=== PATIENT | male | born 1935 | race Caucasian/White ===

== ENCOUNTER → 2016-09-21 | Outpatient (CLI) | payer BC ==
[~2016-09-21] MED LIST: ALL100 PO; ALT10 PO; ASPEC81 PO; CHOL1000 PO; CYAN100020 PO; DOXY1CAP PO; FLM4 PO; GLC500 PO; HMLIS SQ; INSUINJ SQ; MULT-506 PO; PRAV20TA PO
[2016-09-21 09:32] LABS: HEMATOCRIT 43.6 % (42-52); MEAN CELL VOLUME 91.4 fL (80-100); MEAN CORPUSCULAR HEMOGLOBIN 31.2 pg (25-34); MEAN CORPUSCULAR HGB CONC 34.2 g/dl (32-36); MEAN PLATELET VOLUME 9.3 fL (7.4-10.4); PLATELET COUNT 177 K/uL (130-400); RED BLOOD COUNT 4.77 M/uL (4.7-6.1)
[2016-09-21 09:46] LABS: ALT/SGPT 43 U/L (12-78); BLOOD UREA NITROGEN 20 mg/dl (7-18); BUN/CREATININE RATIO 22.2 (10-20); CARBON DIOXIDE 24 mmol/L (21-32); CHLORIDE 107 mmol/L (98-107); CHOLESTEROL 149 mg/dl (0-200); CREATININE 0.89 mg/dl (0.60-1.40); GLUCOSE 116 mg/dl (70-99); POTASSIUM 4.1 mmol/L (3.5-5.1); SODIUM 142 mmol/L (136-145)
[2016-09-21 09:49] LABS: ESTIMATED AVERAGE GLUCOSE 174 mg/dl; HA1C FLAG Normal (Normal)
[2016-09-21 09:58] LABS: ALB/GLOB RATIO 1.1 (0.9-2); ALKALINE PHOSPHATASE 71 U/L (45-117); AST/SGOT 24 U/L (15-37); CHOLESTEROL/HDL RATIO 3.6; HDL CHOLESTEROL 41 mg/dl; LDL CHOLESTEROL CALCULATED 61 mg/dl; PHOSPHORUS 2.9 mg/dl (2.5-4.9); PROSTATE SPECIFIC ANTIGEN 0.013 ng/ml (0.000-4.000); TRIGLYCERIDES 237 mg/dl (0-150); VERY LOW DENSITY LIPOPROT CALC 47 mg/dl
[2016-09-21 11:07] LABS: MANUAL MICROSCOPIC REQUIRED? NO; URINE APPEARANCE CLEAR (CLEAR); URINE BILIRUBIN NEG (NEG); URINE COLOR YELLOW; URINE NITRITE NEG (NEG); URINE SPECIFIC GRAVITY 1.025 (1.000-1.030); UROBILINOGEN NEG (NEG)
[2016-09-21 11:28] LABS: URINE EPITHELIAL CELL AUTO 0-5 /lpf (0-5); URINE PROTIEN/CREAT RATIO 0.1 (0-0.2); URINE TOTAL PROTEIN 16.6 mg/dl (0-11.9)
[2016-09-21 11:35] LABS: REVIEW REQ? YES
--- NOTE | 2016-09-25 10:41 | CODING QUERY MEDICAL NECESSITY ---
SUPPORTING DIAGNOSIS NEEDED Dr. Betts, A supporting diagnosis is required for the test/procedure performed on this patient in order for us to be reimbursed by the patient's insurance. Please provide a supporting diagnosis for the following test/procedure listed below next to the test name along with your signature. *If there is no additional diagnosis for this patient that would support the following test/procedure please document that below next to the test/procedure. Test(s)/Procedure(s) that require a supporting diagnosis: * 18961 GLYCATED HEMOGLOBIN DIAGNOSIS: * [id number] PSA DIAGNOSIS: DATE OF SERVICE: 09/21/16 Provider Signature: Date: Thank you Eduardo Pena Health Information Management Once completed, please kindly fax back to [phone] For questions please call [phone]
== END | disposition home or self-care (01) ==
LOC: C.LAB1850 08:18
PROVIDERS: ATTEND Internal Medicine
DX: M81.0 Age-related osteoporosis without current pathological fracture (principal); I12.9 Hypertensive chronic kidney disease with stage 1 through stage 4 chronic kidney disease, or unspecified chronic kidney disease; E55.9 Vitamin D deficiency, unspecified; N18.2 Chronic kidney disease, stage 2 (mild); R80.9 Proteinuria, unspecified; E11.22 Type 2 diabetes mellitus with diabetic chronic kidney disease; N40.1 Benign prostatic hyperplasia with lower urinary tract symptoms

== ENCOUNTER → 2017-02-17 | Outpatient (CLI) | payer BC ==
[~2017-02-17] MED LIST changes: +CRAN1CAP14; +ERGO500037 PO; +FLUO0.0566 TOP; +[UNRECOGNIZED DRUG - CODE]
[2017-02-17 17:04] LABS: PROSTATE SPECIFIC ANTIGEN 0.012 ng/ml (0.000-4.000)
[2017-02-18 07:30] LABS: ESTIMATED AVERAGE GLUCOSE 174 mg/dl; HA1C FLAG Normal (Normal)
== END | disposition home or self-care (01) ==
LOC: C.LABBC 13:25
PROVIDERS: ATTEND Internal Medicine Endocrinology, Diabetes & Metabolism
DX: C61 Malignant neoplasm of prostate (principal); I10 Essential (primary) hypertension; E78.5 Hyperlipidemia, unspecified; E66.9 Obesity, unspecified; E55.9 Vitamin D deficiency, unspecified; E11.21 Type 2 diabetes mellitus with diabetic nephropathy; R80.9 Proteinuria, unspecified; M81.0 Age-related osteoporosis without current pathological fracture

== ENCOUNTER → 2017-03-02 | Outpatient (CLI) | payer BC ==
[2017-03-02 16:46] LABS: HEMATOCRIT 42.6 % (42-52); MEAN CELL VOLUME 93.2 fL (80-100); MEAN CORPUSCULAR HEMOGLOBIN 32.4 pg (25-34); MEAN CORPUSCULAR HGB CONC 34.7 g/dl (32-36); MEAN PLATELET VOLUME 9.5 fL (7.4-10.4); PLATELET COUNT 184 K/uL (130-400); RED BLOOD COUNT 4.57 M/uL (4.7-6.1); WHITE BLOOD COUNT 5.56 K/uL (4.8-10.8)
[2017-03-02 16:49] LABS: URINE APPEARANCE CLEAR (CLEAR); URINE BILIRUBIN NEG (NEG); URINE COLOR YELLOW; URINE EPITHELIAL CELL AUTO 0-5 /lpf (0-5); URINE NITRITE NEG (NEG); URINE PH 6.5 (4.5-7.5); URINE SPECIFIC GRAVITY 1.009 (1.000-1.030); UROBILINOGEN NEG (NEG)
[2017-03-02 16:55] LABS: ALT/SGPT 41 U/L (12-78); BLOOD UREA NITROGEN 19 mg/dl (7-18); BUN/CREATININE RATIO 20.7 (10-20); CALCIUM 9.6 mg/dl (8.5-10.1); CARBON DIOXIDE 30 mmol/L (21-32); CHLORIDE 103 mmol/L (98-107); CREATININE 0.91 mg/dl (0.60-1.40); GLUCOSE 82 mg/dl (70-99); SODIUM 140 mmol/L (136-145)
[2017-03-02 16:58] LABS: ALKALINE PHOSPHATASE 77 U/L (45-117); AST/SGOT 22 U/L (15-37)
[2017-03-02 16:59] LABS: MANUAL MICROSCOPIC REQUIRED? NO; REVIEW REQ? NO
[2017-03-02 17:18] LABS: URINE PROTIEN/CREAT RATIO 0.5 (0-0.2); URINE TOTAL PROTEIN 9.1 mg/dl (0-11.9)
== END | disposition home or self-care (01) ==
LOC: C.LABBC 13:55
PROVIDERS: ATTEND Internal Medicine Nephrology
DX: E55.9 Vitamin D deficiency, unspecified (principal); I12.9 Hypertensive chronic kidney disease with stage 1 through stage 4 chronic kidney disease, or unspecified chronic kidney disease; N18.2 Chronic kidney disease, stage 2 (mild); R80.9 Proteinuria, unspecified

== ENCOUNTER → 2017-04-14 | Outpatient (CLI) | payer BC ==
[~2017-04-14] MED LIST changes: +FENTANYL CITRATE INJ 50 MCG/1 ML 2 ML VIAL ONE; +HEPARIN SOD (PORCINE) 1000 UNIT/ML 10 ML VIAL ONE; +MIDAZOLAM HCL 1 MG/ML 2ML VIAL ONE; +NITROGLYCERIN/D5W 100MCG/ML 20ML SYR ONE; +NiCARDipine HCL INJ 2.5 MG/ML 10 ML AMP ONE; +REGADENOSON 0.4 MG/5 ML SYR ONE
--- NOTE | 2017-04-14 14:12 | MYOCARDIAL PERFUSION SCAN ---
MYOCARDIAL PERFUSION STUDY HISTORY: This is a 81-year-old diabetic male with a history of a permanent pacemaker who has been experiencing shortness of breath with activity. TECHNIQUE: For the stress portion of the study the patient received 32.9 millicuries of intravenous technetium-99m sestamibi intravenously at 11:25 a.m. on 04/14/2017. Thirty minutes later the patient had imaging of his heart performed in multiple projections. For the rest portion of the study the patient received 10.8 mCi of intravenous technetium-99m sestamibi at 9:30 a.m. One hour following the injection, imaging of the heart was performed in the same projections. BASELINE EKG: Baseline EKG reveals a sinus rhythm with ventricular pacing. STRESS EKG: Unchanged and no significant arrhythmias. RAW DATA: Review of the raw data in a spin motion reveals normal uptake of the radioisotope in the myocardium without significant artifact or lung uptake. FINDINGS: When comparing to rest the stress sestamibi scans there is a moderate to severe perfusion defect in a moderate to large portion of the inferior and inferobasilar myocardium on the stress images which is less evident on the resting images and is consistent with ischemia. Gated analysis reveals normal wall motion and left ventricular function with an estimated left ventricular ejection fraction of 54%. SUMMARY: Overall this pharmacologic nuclear stress test reveals moderate to severe ischemia of the inferior and inferobasilar myocardium. Overall left ventricular systolic function is preserved with an estimated left ventricular ejection fraction of 54%.
== END | disposition home or self-care (01) ==
LOC: C.NUCL 09:09
PROVIDERS: ATTEND Internal Medicine Interventional Cardiology
DX: I35.0 Nonrheumatic aortic (valve) stenosis (principal)

== ENCOUNTER 2017-08-07 17:28 | Emergency (ER) | payer BC ==
[~2017-08-07] VITALS: Ht 154.9 cm; Wt 74.8 kg
[~2017-08-07 17:28] MED LIST changes: -ALT10 PO; +ATOR-22 PO; -CHOL1000 PO; -DOXY1CAP PO; -FENTANYL CITRATE INJ 50 MCG/1 ML 2 ML VIAL ONE; -FLUO0.0566 TOP; +GLC/500 PO; -GLC500 PO; -HEPARIN SOD (PORCINE) 1000 UNIT/ML 10 ML VIAL ONE; +INSDGI SC; -INSUINJ SQ; +METO25TA56 PO; -MIDAZOLAM HCL 1 MG/ML 2ML VIAL ONE; -NITROGLYCERIN/D5W 100MCG/ML 20ML SYR ONE; -NiCARDipine HCL INJ 2.5 MG/ML 10 ML AMP ONE; -PRAV20TA PO; -REGADENOSON 0.4 MG/5 ML SYR ONE
[2017-08-07 17:33] VITALS: TEMP 36.4; Ht 154.9 cm; Wt 74.8 kg
[2017-08-07] MEDS ORDERED: ASPI81TA21 PO (18:18)
[2017-08-07] MEDS ORDERED: ALL100 PO (18:18)
[2017-08-07] MEDS ORDERED: ASCA500 PO (18:18)
[2017-08-07] MEDS ORDERED: INSU1INJ31 SC (18:18)
--- NOTE | 2017-08-07 18:24 | DIAGNOSTIC IMAGING REPORT ---
CHEST ONE VIEW PORTABLE CLINICAL HISTORY: EVALUATE ALTERED MENTAL STATUS/WEAKNESS COMPARISON STUDY: Chest radiograph September 26, 2015. FINDINGS: Dual lead left pacemaker, median sternotomy wires and prosthetic cardiac valve are noted. There is mild cardiomegaly without evidence of pulmonary edema. There is no consolidation to suggest pneumonia. Linear bibasilar opacities suggest atelectasis. IMPRESSION: 1. No acute cardiopulmonary findings. 2. Linear bibasilar opacities suggestive of atelectasis. Electronically signed by: Jim Zambrano M.D. 08/07/2017 6:23 PM Dictated Date/Time: 08/07/2017 6:19 PM
[2017-08-07 18:48] LABS: BASO % 0.2 %; BASO ABS # 0.01 K/uL (0-0.2); EOS % 1.2 %; EOS ABS # 0.06 K/uL (0-0.5); HEMATOCRIT 46.4 % (42-52); IG# 0.02 K/uL (0.00-0.02); LYMPH % 32.2 %; LYMPH ABS # 1.56 K/uL (1.2-3.4); MEAN CELL VOLUME 91.3 fL (80-100); MEAN CORPUSCULAR HEMOGLOBIN 31.5 pg (25-34); MEAN CORPUSCULAR HGB CONC 34.5 g/dl (32-36); MEAN PLATELET VOLUME 9.4 fL (7.4-10.4); MONO % 8.7 %; MONO ABS # 0.42 K/uL (0.11-0.59); NEUT % 57.3 %; NEUT ABS # 2.78 K/uL (1.4-6.5); PLATELET COUNT 136 K/uL (130-400); RED CELL DISTRIBUTION WIDTH CV 13.3 % (11.5-14.5); WHITE BLOOD COUNT 4.85 K/uL (4.8-10.8)
[2017-08-07 18:57] LABS: INR 1.2 (0.9-1.1); PTT PATIENT 27.2 SECONDS (21.0-31.0)
[2017-08-07 19:06] LABS: ALT/SGPT 33 U/L (12-78); BLOOD UREA NITROGEN 16 mg/dl (7-18); CALCIUM 8.9 mg/dl (8.5-10.1); CARBON DIOXIDE 28 mmol/L (21-32); CREATININE 1.02 mg/dl (0.60-1.40); GLUCOSE 97 mg/dl (70-99); LIPASE 119 U/L (73-393); POTASSIUM 3.9 mmol/L (3.5-5.1); SODIUM 138 mmol/L (136-145)
[2017-08-07 19:14] LABS: ALKALINE PHOSPHATASE 92 U/L (45-117); AST/SGOT 22 U/L (15-37); TOTAL PROTEIN 7.8 gm/dl (6.4-8.2)
[2017-08-07] MEDS ORDERED: OPTIRAY 320 IV PRN (19:45)
--- NOTE | 2017-08-07 19:47 | DIAGNOSTIC IMAGING REPORT ---
HEAD COMBO CLINICAL HISTORY: Transient leg weakness. COMPARISON STUDY: Head CT July 12, 2015 and MRI of the brain June 12, 2008. TECHNIQUE: Axial images of the head were obtained before and after intravenous administration of 116 cc of Optiray 320 IV. FINDINGS: No acute intracranial hemorrhage, midline shift or mass effect is present. Moderate atrophy is noted. Ventricular system is stable. Basilar cisterns are patent. There are no extra-axial collections. There are no findings to suggest acute dural sinus thrombosis or acute territorial infarct. There is no intracranial mass or pathologic enhancement. White matter hypodensities suggest mild to moderate small vessel disease. There are no significant calvarial abnormalities. IMPRESSION: 1. No acute intracranial findings. No change in appearance of the brain. 2. No intracranial mass or pathologic enhancement. Electronically signed by: Jim Zambrano M.D. 08/07/2017 7:46 PM Dictated Date/Time: 08/07/2017 7:42 PM
--- NOTE | 2017-08-07 19:57 | EMERGENCY ROOM VISIT NOTE ---
History Report prepared by Karie: Adrian Medrano Under the Supervision of: Dr. Michael Grant D.O. First contact with patient: 17:51 Chief Complaint: DIZZY Stated Complaint: IMBALANCE,REFERRED BY NURSE SUBSTANCE ABUSE History of Present Illness The patient is a 81 year old male who presents to the Emergency Room with complaints of intermittent dizziness that lasts for 15 minutes that began 3 months of. He had 2 bypasses and an aortic valve replacement 3 months ago at the [facility] (Dr. Reaves). He states that today, he had a bowel movement , and tried to stand up but states that he lost his balance when he tried to stand. He denies weakness or numbness in his legs but states that they feel "funny". He states that he napped after her episode of dizziness and felt better. The patient spoke with his son who is a marshmallow machine operator who suggested the patient get a CT and be evaluated by a neurologist for the possibility of a stroke. Source of History: patient Onset: 3 mongths ago Position: other (global) Timing: intermittent Associated Symptoms: No weakness, No numbness Note: Patient complains of dizziness and losing his balance. Patient states that his legs feel "funny". Review of Systems See HPI for pertinent positives & negatives. A total of 10 systems reviewed and were otherwise negative. Past Medical & Surgical Medical Problems: (1) Diabetes mellitus (2) Pacemaker Surgical Problems: (1) Aortic valve replaced Family History Diabetes mellitus Social History Smoking Status: Former Smoker Alcohol Use: occasionally Marital Status: Housing Status: lives with significant other Occupation Status: retired Current/Historical Medications Scheduled Allopurinol (Allopurinol), 100 MG PO BID Ascorbic Acid (Vitamin C), 500 MG PO DAILY Aspirin Enteric Coated (Ecotrin Or Generic), 81 MG PO BID Atorvastatin (Lipitor), 20 MG PO DAILY Cyanocobalamin (Vitamin B12), 1,000 MCG PO DAILY Ergocalciferol (Vitamin D 27418 Unit), 1 CAP PO Q2WK Insulin Glargine (Lantus), 40 UNITS SC QPM Insulin Lispro (Human) (Humalog Kwikpen), 10-12 UNITS SC ACHS Metformin Hcl (Glucophage), 500 MG PO BID Metoprolol Tartrate (Lopressor) (Lopressor), 12.5 MG PO BID Multivitamin (Multivitamin), 1 TAB PO DAILY Allergies Coded Allergies: No Known Allergies (Unverified , 08/07/17) Physical Exam Vital Signs Date Time Temp Pulse Resp B/P (MAP) Pulse Ox O2 Delivery O2 Flow Rate FiO2 08/07/17 19:11 59 15 134/80 93 08/07/17 18:58 58 18 163/95 08/07/17 18:00 64 08/07/17 17:55 60 18 173/96 95 Room Air 65 162/97 67 163/95 08/07/17 17:33 36.4 76 18 188/89 97 Room Air Physical Exam VITAL SIGNS: were reviewed as above. GENERAL:Non-toxic in appearance. SKIN: Warm dry and pink. HEAD: Normocephalic and atraumatic. OROPHARYNX: Is clear and moist NECK: Supple without lymphadenopathy or meningismus. LUNGS: clear. HEART: Regular rate and rhythm. ABDOMEN: Soft and nontender. EXTREMITIES: Warm and well perfused. NEUROLOGICALLY: Awake alert and oriented without focal deficit. Cranial nerves 2 -12 are intact. There is no pronator drift. Cerebellar testing is within normal limits. There is no nystagmus. There is no facial droop. Speech is clear. Vision is grossly normal. MUSCULOSKELETAL: Good muscle tone. No evidence of trauma. Medical Decision & Procedures ER Provider Diagnostic Interpretation: Radiology results as stated below per my review and radiologist interpretation: CHEST ONE VIEW PORTABLE CLINICAL HISTORY: EVALUATE ALTERED MENTAL STATUS/WEAKNESS COMPARISON STUDY: Chest radiograph September 26, 2015. FINDINGS: Dual lead left pacemaker, median sternotomy wires and prosthetic cardiac valve are noted. There is mild cardiomegaly without evidence of pulmonary edema. There is no consolidation to suggest pneumonia. Linear bibasilar opacities suggest atelectasis. IMPRESSION: 1. No acute cardiopulmonary findings. 2. Linear bibasilar opacities suggestive of atelectasis. Electronically signed by: Jim Zambrano M.D. 08/07/2017 6:23 PM Dictated Date/Time: 08/07/2017 6:19 PM HEAD COMBO CLINICAL HISTORY: Transient leg weakness. COMPARISON STUDY: Head CT July 12, 2015 and MRI of the brain June 12, 2008. TECHNIQUE: Axial images of the head were obtained before and after intravenous administration of 116 cc of Optiray 320 IV. FINDINGS: No acute intracranial hemorrhage, midline shift or mass effect is present. Moderate atrophy is noted. Ventricular system is stable. Basilar cisterns are patent. There are no extra-axial collections. There are no findings to suggest acute dural sinus thrombosis or acute territorial infarct. There is no intracranial mass or pathologic enhancement. White matter hypodensities suggest mild to moderate small vessel disease. There are no significant calvarial abnormalities. IMPRESSION: 1. No acute intracranial findings. No change in appearance of the brain. 2. No intracranial mass or pathologic enhancement. Electronically signed by: Jim Zambrano M.D. 08/07/2017 7:46 PM Dictated Date/Time: 08/07/2017 7:42 PM Laboratory Results 08/07/17 18:35 Red Blood Count 5.08, Mean Corpuscular Volume 91.3, Mean Corpuscular Hemoglobin 31.5, Mean Corpuscular Hemoglobin Concent 34.5, Mean Platelet Volume 9.4, Neutrophils (%) (Auto) 57.3, Lymphocytes (%) (Auto) 32.2, Monocytes (%) (Auto) 8.7, Eosinophils (%) (Auto) 1.2, Basophils (%) (Auto) 0.2, Neutrophils # (Auto) 2.78, Lymphocytes # (Auto) 1.56, Monocytes # (Auto) 0.42, Eosinophils # (Auto) 0.06, Basophils # (Auto) 0.01 08/07/17 18:35 Test 08/07/17 18:35 White Blood Count 4.85 K/uL (4.8-10.8) Red Blood Count 5.08 M/uL (4.7-6.1) Hemoglobin 16.0 g/dL (14.0-18.0) Hematocrit 46.4 % (42-52) Mean Corpuscular Volume 91.3 fL (80-100) Mean Corpuscular Hemoglobin 31.5 pg (25-34) Mean Corpuscular Hemoglobin Concent 34.5 g/dl (32-36) Platelet Count 136 K/uL (130-400) Mean Platelet Volume 9.4 fL (7.4-10.4) Neutrophils (%) (Auto) 57.3 % Lymphocytes (%) (Auto) 32.2 % Monocytes (%) (Auto) 8.7 % Eosinophils (%) (Auto) 1.2 % Basophils (%) (Auto) 0.2 % Neutrophils # (Auto) 2.78 K/uL (1.4-6.5) Lymphocytes # (Auto) 1.56 K/uL (1.2-3.4) Monocytes # (Auto) 0.42 K/uL (0.11-0.59) Eosinophils # (Auto) 0.06 K/uL (0-0.5) Basophils # (Auto) 0.01 K/uL (0-0.2) RDW Standard Deviation 44.0 fL (36.4-46.3) RDW Coefficient of Variation 13.3 % (11.5-14.5) Immature Granulocyte % (Auto) 0.4 % Immature Granulocyte # (Auto) 0.02 K/uL (0.00-0.02) Prothrombin Time 12.7 SECONDS (9.0-12.0) Prothromb Time International Ratio 1.2 (0.9-1.1) Activated Partial Thromboplast Time 27.2 SECONDS (21.0-31.0) Partial Thromboplastin Ratio 1.0 Anion Gap 4.0 mmol/L (3-11) Est Creatinine Clear Calc Drug Dose 50.9 ml/min Estimated GFR () 80.6 Estimated GFR (Non- 69.6 BUN/Creatinine Ratio 15.7 (10-20) Calcium Level 8.9 mg/dl (8.5-10.1) Magnesium Level 1.9 mg/dl (1.8-2.4) Total Bilirubin 0.5 mg/dl (0.2-1) Direct Bilirubin 0.1 mg/dl (0-0.2) Aspartate Amino Transf (AST/SGOT) 22 U/L (15-37) Alanine Aminotransferase (ALT/SGPT) 33 U/L (12-78) Alkaline Phosphatase 92 U/L (45-117) Total Creatine Kinase 189 U/L (39-308) Creatine Kinase MB 3.0 ng/ml (0.5-3.6) Creatine Kinase MB Ratio 1.6 (0-3.0) Troponin I < 0.015 ng/ml (0-0.045) Total Protein 7.8 gm/dl (6.4-8.2) Albumin 4.0 gm/dl (3.4-5.0) Lipase 119 U/L (73-393) Thyroid Stimulating Hormone (TSH) 2.650 uIu/ml (0.300-4.500) Laboratory results as stated above per my review. ECG Indication: weakness Rate (beats per minute): 60 Rhythm: other (paced ventricular rhythm) Findings: no ectopy, other (No acute injury) Change: Patient's EKG interpreted by me. ED Course 1750: Previous medical records were reviewed. The patient was evaluated in room A12. A complete history and physical examination was performed. 1954: On reevaluation, the patient is doing well. I discussed the results and findings with the patient. He verbalized agreement of the treatment plan. He was discharged home. Medical Decision Differential includes acute coronary syndrome, myocardial infarction, CVA, TIA, anemia, infection, pneumonia, UTI, pyelonephritis, poor nutrition, dehydration, electrolyte disturbance,hypoglycemia. This is a 81-year-old male who presents to the ED with a chief complaint of intermittent episodes where he feels as though he cannot quite control his legs. The patient states that his symptoms started about 3 months ago after having a double bypass surgery and aortic valvular surgery. The patient states that it has occurred about 6 times in that timeframe. Today, the patient states that it occurred after having a bowel movement. He states that he was on the toilet for about 10 minutes and when he got up he felt like his legs were wobbly and hard to control. He states that he went to his bed and laid down and rested and woke up and felt fine. The patient came in for evaluation of this. His legs currently are better and he was able to walk in here but they still don't feel quite normal. His physical exam and neurologic exam was unremarkable. He is in no distress. In his strength is 5 out of 5 in the lower extremities. He has normal reflexes. CT scan of the brain did not show acute process. A chest x-ray was negative for acute disease. CBC and complete metabolic panel were normal and a troponin and TSH were normal. The patient was told results the test. He is felt to be stable for discharge and outpatient follow-up. His initial blood pressure was somewhat elevated. The last blood pressure was normal. Medication Reconcilliation Current Medication List: was personally reviewed by me Blood Pressure Screening Patient's blood pressure: Elevated blood pressure Blood pressure disposition: Elevated BP felt to be situational Impression Primary Impression: Transient left leg weakness Additional Impression: Transient right leg weakness Scribe Attestation The scribe's documentation has been prepared under my direction and personally reviewed by me in its entirety. I confirm that the note above accurately reflects all work, treatment, procedures, and medical decision making performed by me. Departure Information Dispostion Home / Self-Care Referrals Jose Betts M.D. (PCP) Patient Instructions My [facility] Additional Instructions CT scan of the brain today did not show any acute abnormalities. Your blood work was normal. Follow-up with your doctor for recheck. See a neurologist for further evaluation as well. Talk to Dr. Estrada about neurology referral. Problem Qualifiers
[2017-08-07 20:00] VITALS: BP 146/91; PULSE 54; O2SAT 94
== END 2017-08-07 20:05 | disposition home or self-care (01) ==
LOC: C.EDB 17:30 → C.EDA 20:05
DX: M62.81 Muscle weakness (generalized) (principal); R42 Dizziness and giddiness; E11.9 Type 2 diabetes mellitus without complications; Z79.4 Long term (current) use of insulin; Z79.899 Other long term (current) drug therapy; Z95.0 Presence of cardiac pacemaker; Z95.2 Presence of prosthetic heart valve; Z87.891 Personal history of nicotine dependence; Z83.3 Family history of diabetes mellitus

== ENCOUNTER → 2017-08-16 | Outpatient (CLI) | payer BC ==
[~2017-08-16] MED LIST changes: +ASCA500 PO; -ASPEC81 PO; +ASPI81TA21 PO; -CRAN1CAP14; -FLM4 PO; -HMLIS SQ; +INSU1INJ31 SC; -[UNRECOGNIZED DRUG - CODE]
[2017-08-16 13:40] LABS: HEMOGLOBIN A1C 7.4 % (4.5-5.6)
== END | disposition home or self-care (01) ==
LOC: C.LAB1850 11:50
PROVIDERS: ATTEND Internal Medicine Endocrinology, Diabetes & Metabolism
DX: E55.9 Vitamin D deficiency, unspecified (principal); M81.0 Age-related osteoporosis without current pathological fracture; E11.9 Type 2 diabetes mellitus without complications

== ENCOUNTER → 2017-08-30 | Outpatient (CLI) | payer BC | END | disposition home or self-care (01) | LOC: C.LABBC 09:49 | PROVIDERS: ATTEND Psychiatry & Neurology Neurology | DX: R53.1 Weakness (principal) ==

== ENCOUNTER → 2017-10-19 | Outpatient (CLI) | payer BC ==
[~2017-10-19] MED LIST changes: +ASPI-319 PO; -ASPI81TA21 PO
[2017-10-19 09:51] LABS: ALBUMIN 3.6 gm/dl (3.4-5.0); ALT/SGPT 30 U/L (12-78); AST/SGOT 21 U/L (15-37); BLOOD UREA NITROGEN 14 mg/dl (7-18); CALCIUM 9.1 mg/dl (8.5-10.1); CARBON DIOXIDE 28 mmol/L (21-32); CHOLESTEROL 140 mg/dl (0-200); CREATININE 0.96 mg/dl (0.60-1.40); GLUCOSE 107 mg/dl (70-99); POTASSIUM 4.1 mmol/L (3.5-5.1); SODIUM 140 mmol/L (136-145)
[2017-10-19 09:55] LABS: ALKALINE PHOSPHATASE 97 U/L (45-117); LDL CHOLESTEROL CALCULATED 63 mg/dl; TOTAL PROTEIN 7.3 gm/dl (6.4-8.2)
== END | disposition home or self-care (01) ==
LOC: C.LAB1850 06:52
PROVIDERS: ATTEND Internal Medicine
DX: I10 Essential (primary) hypertension (principal); E78.5 Hyperlipidemia, unspecified; I25.10 Atherosclerotic heart disease of native coronary artery without angina pectoris

== ENCOUNTER → 2017-10-22 | Outpatient (CLI) | payer BC | LOC: C.LABBC 10:29 | PROVIDERS: ATTEND Internal Medicine | DX: Z85.46 Personal history of malignant neoplasm of prostate (principal) ==

== ENCOUNTER 2020-05-03 13:53 | Observation (INO) ==
--- NOTE | 2020-05-03 14:57 | XRay Report ---
XR chest 1V portable HISTORY: 84 years-old Male tia acute strokelike symptoms. COMPARISON: Chest radiographs 10/25/2018 TECHNIQUE: Portable AP view of the chest FINDINGS: Cardiac mediastinal and hilar silhouettes are within normal limits. Left subclavian pacer. Prior medi an sternotomy. No pneumothorax, pleural effusion, airspace consolidation or overt pulmonary edema. Mi nimal linear subsegmental left lung base atelectasis/scarring. Degenerative changes of the shoulders and spine. IMPRESSION: No acute process. ACT 112: Negative or not required by law. The above report was generated using voice recognition software. It may contain grammatical, syntax o r spelling errors. Electronically signed by: Kamran Diallo M.D. 05/03/2020 2:56 PM
[2020-05-03 15:03] LABS: Eosinophils # (auto) 0.01 K/uL (0-0.5); Eosinophils % (auto) 0.1 %; Hematocrit (blood only) 47.2 % (42-52); Hemoglobin 15.9 g/dL (14.0-18.0); Immature Granulocytes # (auto) 0.04 K/uL (0.00-0.02); Immature Granulocytes % (auto) 0.6 %; Lymphocytes # (auto) 1.68 K/uL (1.2-3.4); Mean Corpuscular Hemoglobin 32.1 pg (25-34); Mean Corpuscular Hgb Conc 33.7 g/dL (32-36); Mean Corpuscular Volume 95.4 fL (80-100); Monocytes % (auto) 8.9 %; Neutrophils # (auto) 4.38 K/uL (1.4-6.5); Neutrophils % (auto) 65.4 %; Platelet Count 126 K/uL (130-400); RDW Coefficient of Variation 13.1 % (11.5-14.5); RDW Standard Deviation 45.9 fL (36.4-46.3); Red Blood Count 4.95 M/uL (4.7-6.1); White Blood Count 6.71 K/uL (4.8-10.8)
[2020-05-03 15:34] LABS: Alanine Aminotransferase 45 U/L (12-78); Albumin Globulin Ratio 0.8 (0.9-2); Albumin Level 3.8 gm/dl (3.4-5.0); Alkaline Phosphatase 81 U/L (45-117); BUN Creatinine Ratio 20.1 (10-20); Bilirubin,Total 0.6 mg/dl (0.2-1); Blood Urea Nitrogen 22 mg/dl (7-18); Calcium 9.2 mg/dl (8.5-10.1); Carbon Dioxide 28 mmol/L (21-32); Chloride 105 mmol/L (98-107); Creatinine Clr Calc Pharmacy 45.8 ml/min; Est GFR (African American) 74.5; Est GFR (Non-African American) 64.3; Globulin 4.5 gm/dl (2.5-4.0); Glucose 184 mg/dl (70-99); Sodium 136 mmol/L (136-145); Total Protein 8.3 gm/dl (6.4-8.2); Troponin I < 0.015 ng/ml (0-0.045)
--- NOTE | 2020-05-03 15:37 | Emergency Department Note ---
Impression & Plan TIA (transient ischemic attack), AFX (amaurosis fugax) ED Provider Note NAME: RAJ MCDANIEL AGE: 84 SEX: M : 1935 ARRIVES VIA: Walk-In INFORMANT: Patient, ED PROVIDER(S): Timi Brower DO CHIEF COMPLAINT: Vision loss HPI: The patient is an 84-year-old male who has a history of aortic valve replacement who presented to the emergency department for an evaluation of decreased vision in his left eye. The patient had an acute onset of loss of vision in his left eye. He describes it as a darkening of the entire vision fi eld which began yesterday. The patient states that this episode lasted approximately 5 seconds. He denies having any chest pain or difficulty breathing. He has no difficulty ambulating. He states that he called his rv mechanic and was evaluated today in the office. According to the patient his left pupil is dilated and needed direct retinal evaluation which did not reveal cause for the patient's vision loss. He was then referred to the emergency department for further evaluation. He denies having any history of TIA or stroke. He states his aortic valve replacement was 3 to 4 years ago. He does not currently take oral anticoagulation. He states he did not see his family doctor but was referred to the emergency department as well by his primary director of events, Dr. Reaves. He denies having any headache. ROS: See above HPI for pertinent positives & negatives. A total of 10 systems reviewed and were otherwise negative. PAST MEDICAL HISTORY: See Below PAST SURGICAL HISTORY: See Below FAMILY HISTORY: See Below SOCIAL HISTORY: See Below HOME MEDICATIONS: See Below ALLERGIES: See Below VITALS: See Below PHYSICAL EXAMINATION: GENERAL: Patient is awake alert in no acute distress patient is resting comfortably and showing no signs of anxiety EYES: The conjunctivae are clear. The left pupil is dilated and minimally reactive to light. The right eye is normal size and reactive to light. EARS, NOSE, MOUTH AND THROAT: The nose is without any evidence of any deformity. Mucous membranes are moist. Tongue is midline. NECK: The neck is nontender and supple. RESPIRATORY: Normal respiratory effort is noted there is no evidence of wheezing rhonchi or rales CARDIOVASCULAR: Regular rate and rhythm was noted to auscultation. Systolic murmur was appreciated. GASTROINTESTINAL: The abdomen is soft. Abdomen is nontender. MUSCULOSKELETAL/EXTREMITIES: There is no evidence of gross deformity full range of motion is noted in the hips and shoulders. SKIN: There is no obvious evidence of any rash. There are no petechiae, pallor or cyanosis noted. NEUROLOGIC: Patient is awake alert and oriented x3. Gait was steady. Patellar tendon reflexes are 2+ bilaterally. No facial droop was noted. MEDICAL DECISION MAKING: The patient is an 84-year-old male who presented to the emergency department for an evaluation of transient loss of vision in his left eye. The patient describes an episode yesterday where he lost vision in his left eye. This does appear to be consistent with an amaurosis fugax. 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 The patient was sent to the emergency department by his rv mechanic however his primary director of events did call me to discuss the patient's condition. The patient has no focal neurologic deficit at this time. CT the head and CT angiography of the head and neck do not appear to show any acute disease. This would appear to be a very high risk TIA in this patient. For this reason I will discuss his case with the admitting team for further inpatient management which may include echocardiogram and further observation. The patient was agreeable to this plan. Triage Nursing notes reviewed. Prior medical records reviewed Vital Signs: reviewed and remarkable for no significant abnormalities Differential diagnosis: Infection, dehydration, metabolic abnormality, hypo/hyperglycemia, electrolyte disturbance, anemia, hypoxia, cardiac sources, intracerebral event, toxicologic, neurologic, as well as other pathologies. ER treatment provided: See below Diagnostics interpreted by me: ECG: EKG was obtained in the emergency department. My interpretation is atrial sensed pacemaker at 69 bpm. There was no ectopy or grand traverse beats noted. Left bundle branch block pattern was favored. Anterior T wave inversions were noted. This was compared to a tracing from August 072017. The anterior T wave inversions are new compared to the earlier tracing. Cardiac Monitoring: An order was placed for continuous cardiac monitoring. The monitor shows a rate of 65 bpm with paced rhythm. Laboratory studies: As stated above and show below. Imaging studies: See below Consultation(s): 1082: I discussed this case with Dr. Pena. He will evaluate the patient in the emergency department. Past Med/Surg History Medical History (Updated 05/03/20 @ 16:56 by Timi Brower DO) Actinic keratosis Chronic kidney disease, stage II (mild) Former smoker Gout, joint History of prostate cancer Hypertension Intermittent headache Leg weakness, bilateral Obesity Psoriasis Third degree AV block Unsteady gait Vitamin D deficiency Surgical History Aortic valve replaced History of cataract surgery History of hand surgery S/P coronary artery bypass graft x 2 Family History Brother Myocardial infarction Diabetes Sister Diabetes Mother Diabetes Father Stroke Other Nephrolithiasis Denies family history of Ovarian cancer Prostate cancer Breast cancer Colorectal cancer Social History Smoking Status: Former smoker Tobacco Type: Pipe and Cigars Hx Alcohol Use: Yes Alcohol type: beer and wine Hx Substance Use: No Preferred Language: Hungarian Communication Ability: Effective Visual Impairment: No Limitations Hearing Ability: Use of Hearing Aid Change Over Required: No marital status: Current Living Situation: Spouse current occupational status: retired Feels Safe at Home: Yes Childhood Exposure to Second-Hand Smoke: No caffeine: Yes Dental Care, Regularly: Yes Physical Activity Frequency: 5-6 Times per Week Seatbelt Use: always Sunscreen Use: Yes Allergies Allergies Allergy/AdvReac Type Severity Reaction Status Date / Time No Known Drug Allergies Allergy Unknown Verified 05/03/20 16:14 Home Meds Home Medications Medication Instructions Recorded Confirmed ascorbic acid (vitamin C) [Vitamin 500 mg PO DAILY 03/31/18 05/03/20 C] metoprolol tartrate 12.5 mg PO BID 03/31/18 05/03/20 multivitamin 1 cap PO QAM 03/31/18 05/03/20 vitamins A,C,[id number] 2 tab PO BID 03/31/18 05/03/20 [PreserVision AREDS] ramipril [Altace] 5 mg PO BID 12/07/18 05/03/20 insulin glargine 100 unit/mL (3 40 units SQ HS box 08/14/19 05/03/20 mL) subcutaneous pen aspirin 81 mg tablet,delayed 81 mg PO BID tab 12/08/19 05/03/20 release insulin lispro [Humalog KwikPen 0 unit SUBCUT TIDM 05/03/20 05/03/20 Insulin] Previous Rx's Medication Instructions Recorded metformin 850 mg tablet 850 mg PO DAILY #90 tab 07/13/19 OneTouch Verio test strips #500 ea NS 11/07/19 allopurinol 100 mg tablet 100 mg PO BID #180 tab 11/07/19 pravastatin 20 mg tablet 20 mg PO DAILY #90 tab 11/07/19 calcium carbonate 600 mg calcium 600 mg PO DAILY #30 tab 12/13/19 (1,500 mg) tablet icosapent ethyl 1 gram capsule 2 gm PO BID #360 cap 12/14/19 lancets 30 gauge #500 ea 01/31/20 pen needle, diabetic 32 gauge x #450 ea 01/31/20" diclofenac sodium 1 % topical gel 4 g TOPICAL QID PRN #100 g 03/21/20 calcitriol 0.25 mcg capsule 0.25 mcg PO DAILY #90 cap 04/15/20 Results & Data (ED) Vital Signs Vital Signs - 24 hr 05/03/20 14:09 05/03/20 15:28 Temperature 36.6 C Temperature Source Oral Pulse Rate 73 Pulse Rate [Apical] 64 Pulse Rhythm Regular Pulse Strength Normal Respiratory Rate 18 18 Respiratory Effort / Characteristics Non-Labored Spontaneous Respiratory Depth Normal Blood Pressure 172/93 H Blood Pressure [Left Arm] 148/64 H Blood Pressure Mean 119 Blood Pressure Mean [Left Arm] 92 Pulse Oximetry 94 98 Oxygen Delivery Method Room Air Room Air Sepsis Recent Fever Within 48 Hours No Sepsis New/Unexplained Change in Mental Status N/A Sepsis Action Taken by Nursing No Action Required Home Medications Current Medication List: was personally reviewed by me Laboratory Data Attestation: I reviewed the patient's lab results. Result diagrams: 05/03/20 14:48 05/03/20 16:00 Lab Results 05/03/20 05/03/20 05/03/20 Range/Units 14:48 14:48 14:48 WBC 6.71 (4.8-10.8) K/uL RBC 4.95 (4.7-6.1) M/uL Hgb 15.9 (14.0-18.0) g/dL Hct 47.2 (42-52) % MCV 95.4 (80-100) fL MCH 32.1 (25-34) pg MCHC 33.7 (32-36) g/dL RDW Std Deviation 45.9 (36.4-46.3) fL RDW Coeff of Emily 13.1 (11.5-14.5) % Plt Count 126 L (130-400) K/uL MPV 11.0 H (7.4-10.4) fL Immature Gran % (Auto) 0.6 % Neut % (Auto) 65.4 % Lymph % (Auto) 25.0 % Lane % (Auto) 8.9 % Eos % (Auto) 0.1 % Baso % (Auto) 0.0 % Neut # (Auto) 4.38 (1.4-6.5) K/uL Lymph # (Auto) 1.68 (1.2-3.4) K/uL Lane # (Auto) 0.60 H (0.11-0.59) K/uL Eos # (Auto) 0.01 (0-0.5) K/uL Baso # (Auto) 0.00 (0-0.2) K/uL Immature Gran # (Auto) 0.04 H (0.00-0.02) K/uL ESR (0-14) mm/hr PT Cancelled INR Cancelled APTT Cancelled PTT Ratio Cancelled Sodium 136 (136-145) mmol/L Potassium (3.5-5.1) mmol/L Chloride 105 (98-107) mmol/L Carbon Dioxide 28 (21-32) mmol/L Anion Gap 3.0 (3-11) BUN 22 H (7-18) mg/dl Creatinine 1.07 (0.6-1.4) mg/dl Est Cr Clr Drug Dosing 45.8 ml/min Est GFR ( Amer) 74.5 Est GFR (Non-Af Amer) 64.3 BUN/Creatinine Ratio 20.1 H (10-20) Glucose 184 H (70-99) mg/dl Calcium 9.2 (8.5-10.1) mg/dl Magnesium (1.8-2.4) mg/dl Total Bilirubin 0.6 (0.2-1) mg/dl AST (15-37) U/L ALT 45 (12-78) U/L Alkaline Phosphatase 81 (45-117) U/L Troponin I < 0.015 (0-0.045) ng/ml C-Reactive Protein (0-0.29) mg/dl Total Protein 8.3 H (6.4-8.2) gm/dl Albumin 3.8 (3.4-5.0) gm/dl Globulin 4.5 H (2.5-4.0) gm/dl Albumin/Globulin Ratio 0.8 L (0.9-2) 05/03/20 05/03/20 05/03/20 Range/Units 14:48 16:00 16:00 WBC (4.8-10.8) K/uL RBC (4.7-6.1) M/uL Hgb (14.0-18.0) g/dL Hct (42-52) % MCV (80-100) fL MCH (25-34) pg MCHC (32-36) g/dL RDW Std Deviation (36.4-46.3) fL RDW Coeff of Emily (11.5-14.5) % Plt Count (130-400) K/uL MPV (7.4-10.4) fL Immature Gran % (Auto) % Neut % (Auto) % Lymph % (Auto) % Lane % (Auto) % Eos % (Auto) % Baso % (Auto) % Neut # (Auto) (1.4-6.5) K/uL Lymph # (Auto) (1.2-3.4) K/uL Lane # (Auto) (0.11-0.59) K/uL Eos # (Auto) (0-0.5) K/uL Baso # (Auto) (0-0.2) K/uL Immature Gran # (Auto) (0.00-0.02) K/uL ESR 7 (0-14) mm/hr PT 13.2 H INR 1.3 H APTT 28.7 PTT Ratio 1.0 Sodium (136-145) mmol/L Potassium 4.2 (3.5-5.1) mmol/L Chloride (98-107) mmol/L Carbon Dioxide (21-32) mmol/L Anion Gap (3-11) BUN (7-18) mg/dl Creatinine (0.6-1.4) mg/dl Est Cr Clr Drug Dosing ml/min Est GFR ( Amer) Est GFR (Non-Af Amer) BUN/Creatinine Ratio (10-20) Glucose (70-99) mg/dl Calcium (8.5-10.1) mg/dl Magnesium 2.0 (1.8-2.4) mg/dl Total Bilirubin (0.2-1) mg/dl AST 18 (15-37) U/L ALT (12-78) U/L Alkaline Phosphatase (45-117) U/L Troponin I (0-0.045) ng/ml C-Reactive Protein < 0.29 (0-0.29) mg/dl Total Protein (6.4-8.2) gm/dl Albumin (3.4-5.0) gm/dl Globulin (2.5-4.0) gm/dl Albumin/Globulin Ratio (0.9-2) Administered Medications Discontinued Medications Ioversol (Optiray 320 125ml) 116 ml IV ONCE ONE Stop: 05/03/20 16:18 Last Admin: 05/03/20 16:18 Dose: 1 ml Documented by: [id number] Imaging Data Radiologist's Impression: Patient: RAJ MCDANIEL I Admit Date: 05/03/20 MR#: [id number] Address1: [address] Acct ID:[id number] Address2: Date: 1935 [facility] Zip: [place] [address] Age: 84 Location: ED Sex: M Room/Bed: Att Phy: Diagnosis: VISUAL DISTURBANCE, SENT TO TIA WORK UP BY EYE DOC Radha Phy: Jose Betts MD Service Date: 05/03/20 Fam Phy: Héctor Hay MD Interpreting Phy: Ronaldo Cunningham MD Admit Phy: Ordering Phy: Timi Brower DO cc: ~ CT ANGIOGRAM OF THE BRAIN; CT ANGIOGRAM OF THE NECK CLINICAL HISTORY: Strokelike symptoms. COMPARISON STUDY: MR angiogram of the head and neck dated 06/13/2008. Unenhanced CT of the brain performed concurrently on 05/03/2020. TECHNIQUE: Following the IV administration of 116 of Optiray 320, CT angiogram of the head and neck was performed from the aortic arch to the vertex. Images are reviewed in the axial, sagittal, and coronal planes. 3-D MIPS images are created and assessed. IV contrast was administered without complication. All measurements were calculated based on NASCET criteria. A dose lowering technique was utilized adhering to the principles of ALARA. CT DOSE: 1059.64 mGy.cm FINDINGS: Brain parenchyma: There is age-related involutional change noting moderate subcortical and periventricular microangiopathic disease. There is no hemorrhage, mass effect, or evidence of acute territorial ischemia by CT criteria. There is no evidence of enhancing mass lesion on the angiogram phase images. The ventricles, sulci, and cisterns are prominent secondary to involutional change. Quesada-white matter differentiation is preserved. No extra- axial fluid collection is seen. Thoracic aorta: There is atherosclerotic calcification of the thoracic aorta. Visualized portions of the thoracic aorta are normal in caliber. The aortic arch demonstrates standard 3-vessel anatomy. Right carotid arterial system: The right common carotid artery is widely patent, as are the right internal and external carotid arteries. Calcified plaque is seen in the carotid bulb. Left carotid arterial system: The left common carotid artery is widely patent, as are the left internal and external carotid arteries. Calcified plaque is noted in the carotid bulb. Vertebral arteries: The vertebral arteries are patent bilaterally noting left- sided dominance. Subclavian arteries: Widely patent bilaterally. Intracranial vasculature: There is atherosclerotic calcification of the cavernous carotid and vertebral arteries The internal carotid arteries are patent at the skull base, as are the anterior and middle cerebral arteries bilaterally. The vertebrobasilar system and posterior cerebral arteries are widely patent. The left vertebral artery is dominant. There is no aneurysm, high-grade stenosis, or focal vessel cut off seen throughout the intracranial circulation. Jugular veins: Patent bilaterally. Dural sinuses: Patent. Lung apices: Partially visualized upper lobe lung parenchyma appears clear. Soft tissues: The visualized pharyngeal soft tissues are normal in appearance noting angiographic phase technique. The oropharyngeal airway appears widely patent. The salivary and thyroid glands are normal in appearance. No cervical lymphadenopathy is seen. Skeletal structures: The skeletal structures are osteopenic. The calvarium appears intact. The cervical spine is maintained noting multilevel spondylosis. No lytic or blastic lesion is seen. The patient is status post midline sternotomy. Orbits: The bony orbits are intact. Orbital contents are normal as visualized noting bilateral ocular lens implants. Sinuses and mastoids: Trace mucosal thickening is noted in the maxillary antra. The remaining paranasal sinuses are clear. The mastoid air cells are well pneumatized. IMPRESSION: 1. There is no hemorrhage, mass effect, or evidence of acute territorial ischemia by CT criteria noting angiographic phase technique. 2. Unremarkable CT angiogram of the brain. 3. Unremarkable CT angiogram of the neck. ACT 112: Negative or not required by law. Electronically signed by: Ronaldo Cunningham M.D. 05/03/2020 4:42 PM Dictated: 05/03/201629 Transcribed: 05/03/20 164 Patient: RAJ MCDANIEL I Admit Date: 05/03/20 MR#: [id number] Address1: [address] Acct ID:[id number] Address2: Date: 1935 [facility] Zip: [place] [address] Age: 84 Location: ED Sex: M Room/Bed: Att Phy: Diagnosis: VISUAL DISTURBANCE, SENT TO TIA WORK UP BY EYE DOC Radha Phy: Jose Betts MD Service Date: 05/03/20 Fam Phy: Héctor Hay MD Interpreting Phy: Brody Diallo Admit Phy: Ordering Phy: Timi Brower DO cc: ~ CT head/brain wo con CLINICAL HISTORY: 84 years-old Male with Stroke evaluation . Acute strokelike symptoms TECHNIQUE: Multiple axial CT images of the head were obtained without contrast. A dose lowering technique was utilized adhering to the principles of ALARA. COMPARISON: CTA head neck of same day, CT head 02/29/2020 FINDINGS: No acute intracranial hemorrhage, midline shift, intracranial mass, hydrocephalus, territorial ischemia or abnormal extra-axial collection. Age- related involutional changes with ex vacuo ventriculomegaly. Patchy white matter hypodensities suggest chronic microvascular ischemic disease. Cerebral vascular calcifications. The calvarium is intact. Prior bilateral lens replacement. The paranasal sinuses, mastoid air cells, and middle ear cavities are clear. IMPRESSION: No acute intracranial abnormality. ACT 112: Negative or not required by law. The above report was generated using voice recognition software. It may contain grammatical, syntax or spelling errors. Electronically signed by: Kamran Diallo M.D. 05/03/2020 4:32 PM Dictated: 05/03/201629 Transcribed: 05/03/20 163 Patient: RAJ MCDANIEL I Admit Date: 05/03/20 MR#: [id number] Address1: [address] Acct ID:[id number] Address2: Date: 1935 [facility] Zip: [place] [address] Age: 84 Location: ED Sex: M Room/Bed: Att Phy: Diagnosis: VISUAL DISTURBANCE, SENT TO TIA WORK UP BY EYE DOC Radha Phy: Jose Betts MD Service Date: 05/03/20 [facility] Phy: Héctor Hay MD Interpreting Phy: Brody Diallo Admit Phy: Ordering Phy: Timi Brower, DO cc: ~ XR chest 1V portable HISTORY: 84 years-old Male tia acute strokelike symptoms. COMPARISON: Chest radiographs 10/25/2018 TECHNIQUE: Portable AP view of the chest FINDINGS: Cardiac mediastinal and hilar silhouettes are within normal limits. Left subclavian pacer. Prior median sternotomy. No pneumothorax, pleural effusion, airspace consolidation or overt pulmonary edema. Minimal linear subsegmental left lung base atelectasis/scarring. Degenerative changes of the shoulders and spine. IMPRESSION: No acute process. ACT 112: Negative or not required by law. The above report was generated using voice recognition software. It may contain grammatical, syntax or spelling errors. Electronically signed by: Kamran Diallo M.D. 05/03/2020 2:56 PM Dictated: 05/03/201454 Transcribed: 05/03/201454 Blood Pressure Blood Pressure Findings: Elevated blood pressure Blood Pressure Disposition: further management by hospitalist Discharge Plan Visit Data Chief Complaint: Visual Disturbance Stated Complaint: VISUAL DISTURBANCE, SENT TO TIA WORK UP BY EYE DOC ED Provider: Timi Brower Discharge Problem: TIA (transient ischemic attack), AFX (amaurosis fugax) Patient Disposition: Being Evaluated by Hospitalist Condition: Good Forms Stand Alone Forms: [employer] Prescriptions Prescriptions: No Action metformin 850 mg tablet 850 mg PO DAILY Qty: 90 RF: 3 allopurinol 100 mg tablet 100 mg PO BID Qty: 180 RF: 3 pravastatin 20 mg tablet 20 mg PO DAILY Qty: 90 RF: 3 (DME) blood sugar diagnostic [OneTouch Verio test strips] Strip See Rx Instructions .ROUTE .MEDSUPPLY Qty: 500 RF: 1 Vascepa 1 gram capsule 2 gm PO BID Qty: 360 RF: 3 (DME) pen needle, diabetic [BD Ultra-Fine Silva Pen Needle] 32 gauge x 5/32" needle See Dose Instructions .ROUTE .MEDSUPPLY Qty: 450 RF: 3 (DME) lancets [OneTouch Delica Plus Lancet] 30 gauge misc See Rx Instructions .ROUTE .MEDSUPPLY Qty: 500 RF: 3 calcitriol 0.25 mcg capsule 0.25 mcg PO DAILY Qty: 90 RF: 3 diclofenac sodium 1 % gel 4 g topical QID PRN (Reason: pain) Qty: 100 RF: 0 calcium carbonate [Calcium 600] 600 mg calcium (1,500 mg) tablet 600 mg PO DAILY Qty: 30 RF: 0 Lantus Solostar U-100 Insulin 100 unit/mL (3 mL) insulin pen 40 units SQ HS RF: 0 ascorbic acid (vitamin C) [Vitamin C] 500 mg Tablet 500 mg PO DAILY RF: 0 multivitamin Capsule 1 cap PO QAM RF: 0 metoprolol tartrate 25 mg Tablet 12.5 mg PO BID RF: 0 PreserVision AREDS [id number] Tablet 2 tab PO BID RF: 0 aspirin 81 mg tablet,delayed release (DR/EC) 81 mg PO BID RF: 0 ramipril [Altace] 5 mg Capsule 5 mg PO BID RF: 0 insulin lispro [Humalog KwikPen Insulin] 100 unit/mL insulin pen 0 unit SUBCUT TIDM RF: 0 Referrals Referrals: Jose Betts MD [Primary Care Provider] -
[2020-05-03] MEDS ORDERED: OPTIRAY 320 125ml IV ONE (16:17)
[2020-05-03 16:22] LABS: INR 1.3 (0.9-1.1); Partial Thromboplastin Time 28.7 Seconds (21.0-31.0); Prothrombin Time 13.2 Seconds (9.0-12.0)
[2020-05-03 16:28] LABS: Potassium 4.2 mmol/L (3.5-5.1)
--- NOTE | 2020-05-03 16:34 | CT Scan Report ---
CT head/brain wo con CLINICAL HISTORY: 84 years-old Male with Stroke evaluation . Acute strokelike symptoms TECHNIQUE: Multiple axial CT images of the head were obtained without contrast. A dose lowering tech nique was utilized adhering to the principles of ALARA. COMPARISON: CTA head neck of same day, CT head 02/29/2020 FINDINGS: No acute intracranial hemorrhage, midline shift, intracranial mass, hydrocephalus, territorial ischem ia or abnormal extra-axial collection. Age-related involutional changes with ex vacuo ventriculomegal y. Patchy white matter hypodensities suggest chronic microvascular ischemic disease. Cerebral vascula r calcifications. The calvarium is intact. Prior bilateral lens replacement. The paranasal sinuses, mastoid air cells, and middle ear cavities are clear. IMPRESSION: No acute intracranial abnormality. ACT 112: Negative or not required by law. The above report was generated using voice recognition software. It may contain grammatical, syntax o r spelling errors. Electronically signed by: Kamran Diallo M.D. 05/03/2020 4:32 PM
[2020-05-03 16:35] LABS: Aspartate Aminotransferase 18 U/L (15-37); C Reactive Protein < 0.29 mg/dl (0-0.29)
--- NOTE | 2020-05-03 16:43 | CT Scan Report ---
CT ANGIOGRAM OF THE BRAIN; CT ANGIOGRAM OF THE NECK CLINICAL HISTORY: Strokelike symptoms. COMPARISON STUDY: MR angiogram of the head and neck dated 06/13/2008. Unenhanced CT of the brain per formed concurrently on 05/03/2020. TECHNIQUE: Following the IV administration of 116 of Optiray 320, CT angiogram of the head and neck w as performed from the aortic arch to the vertex. Images are reviewed in the axial, sagittal, and constantine nal planes. 3-D MIPS images are created and assessed. IV contrast was administered without complicati on. All measurements were calculated based on NASCET criteria. A dose lowering technique was utilize d adhering to the principles of ALARA. CT DOSE: 1059.64 mGy.cm FINDINGS: Brain parenchyma: There is age-related involutional change noting moderate subcortical and periventri cular microangiopathic disease. There is no hemorrhage, mass effect, or evidence of acute territorial ischemia by CT criteria. There is no evidence of enhancing mass lesion on the angiogram phase images . The ventricles, sulci, and cisterns are prominent secondary to involutional change. Quesada-white lacie er differentiation is preserved. No extra-axial fluid collection is seen. Thoracic aorta: There is atherosclerotic calcification of the thoracic aorta. Visualized portions of the thoracic aorta are normal in caliber. The aortic arch demonstrates standard 3-vessel anatomy. Right carotid arterial system: The right common carotid artery is widely patent, as are the right int ernal and external carotid arteries. Calcified plaque is seen in the carotid bulb. Left carotid arterial system: The left common carotid artery is widely patent, as are the left grinder set up operator internal al and external carotid arteries. Calcified plaque is noted in the carotid bulb. Vertebral arteries: The vertebral arteries are patent bilaterally noting left-sided dominance. Subclavian arteries: Widely patent bilaterally. Intracranial vasculature: There is atherosclerotic calcification of the cavernous carotid and vertebr al arteries The internal carotid arteries are patent at the skull base, as are the anterior and middl e cerebral arteries bilaterally. The vertebrobasilar system and posterior cerebral arteries are widel y patent. The left vertebral artery is dominant. There is no aneurysm, high-grade stenosis, or focal vessel cut off seen throughout the intracranial circulation. Jugular veins: Patent bilaterally. Dural sinuses: Patent. Lung apices: Partially visualized upper lobe lung parenchyma appears clear. Soft tissues: The visualized pharyngeal soft tissues are normal in appearance noting angiographic pha se technique. The oropharyngeal airway appears widely patent. The salivary and thyroid glands are nor mal in appearance. No cervical lymphadenopathy is seen. Skeletal structures: The skeletal structures are osteopenic. The calvarium appears intact. The cervic al spine is maintained noting multilevel spondylosis. No lytic or blastic lesion is seen. The patient is status post midline sternotomy. Orbits: The bony orbits are intact. Orbital contents are normal as visualized noting bilateral ocular lens implants. Sinuses and mastoids: Trace mucosal thickening is noted in the maxillary antra. The remaining paranas al sinuses are clear. The mastoid air cells are well pneumatized. IMPRESSION: 1. There is no hemorrhage, mass effect, or evidence of acute territorial ischemia by CT criteria noti ng angiographic phase technique. 2. Unremarkable CT angiogram of the brain. 3. Unremarkable CT angiogram of the neck. ACT 112: Negative or not required by law. Electronically signed by: Ronaldo Cunningham M.D. 05/03/2020 4:42 PM
--- NOTE | 2020-05-03 18:47 | Hospitalist Consultation ---
Date of Consultation May 03, 2020 Assessment & Plan (1) TIA (transient ischemic attack): CT/CTA head and neck unremarkable. Carotid arteries were widely patent ABCD score puts patient at a 3.1% risk of stroke over the next 90 days. Recommend return home with further workup outpatient. Could consider echocardiogram and repeated lipid panel as well as pacer interrogation though chances of his symptoms having stemmed from atrial fibrillation seems unlikely. Recommend the following changes to home medicatons: Increase ramipril to 10 mg BID, change pravastatin to atorvastatin 40 mg, continue ASA and add clopidogrel for 4 weeks and then discontinue aspirin. He should see his primary care provider next week. (2) AFX (amaurosis fugax): (3) Thrombocytopenia: Platelets were 126,000, follow up with pcp (4) Diabetes type 2, controlled: Well controlled with last A1 of 6.6% Continue home meds. Hold metformin for 48 hours to avoid interaction with CT dye. (5) Hypertension: Blood pressures were elevated in the ED 172-148/64-101. Will increase Ramipril as above. Instructed on DC to check pressures daily and call pcp if consistently below 100 for systolic or symptoms of dizziness Supervising Physician Co-Signing Physician Notes I personally examined the patient and verified all katz points of history and exam, discussed case, and agree with decision making with S Alpesh WOLF pt had about 5 seconds visual sx - but c/w amarousis fugax. sent to ER. feeling fine, wonders about going home vitals noted nad heent nc at breathing unlabored no accessory muscles good effort skin no rashes no pallor or icterus TIA -almost certainly small vessel thrombosis type mechanism -no large vessel stenosis -no prior hx of afib, and given that this would be an unlikely mechanism without other pathology at play, safe to discharge with echo/interrogation of device as outpt ---->risks appear to be HTN, hyperlipid, DM -- BP up and non-HDL not at goal (and now that he's had a vascular event should change to at least moderate potency statin anyway) -safe for home -- increase ramipril to 10mg bid, change pravachol to atorvastatin 40mg (will get nonHDL to goal and will offer plaque stabilization type benefit); asa + plavix for ~1 month then plavix alone -as above noted, ABCD2 low risk - safe for home, remainder of w/u as outpt, f/u PCP next week -pt offered understanding and appreciation for care History of Present Illness History of Present Illness Mr. Abad is here for amaurosis fugax experienced in the left eye for about 5 seconds yesterday. He went to an opthamologist and was referred to [facility] emergency department for TIA workup. He is currently symptom free and has been since the event yesterday. He denies aches, chills, fever, cough, sob, chest pain, dizziness, palpitations, n/v/d, urinary hesitancy, dysuria. Allergies Allergy/AdvReac Type Severity Reaction Status Date / Time No Known Drug Allergies Allergy Unknown Verified 05/03/20 16:14 Home Medications Home Medications Medication Instructions Recorded Confirmed Type PreserVision AREDS 2 tab PO BID 03/31/18 05/03/20 History ascorbic acid (vitamin C) [Vitamin 500 mg PO DAILY 03/31/18 05/03/20 History C] metoprolol tartrate 12.5 mg PO BID 03/31/18 05/03/20 History multivitamin 1 cap PO QAM 03/31/18 05/03/20 History insulin glargine 100 unit/mL (3 40 units SQ HS box 08/14/19 05/03/20 History mL) subcutaneous pen OneTouch Verio test strips #500 ea NS 11/07/19 05/03/20 Rx allopurinol 100 mg tablet 100 mg PO BID #180 tab 11/07/19 05/03/20 Rx aspirin 81 mg tablet,delayed 81 mg PO BID tab 12/08/19 05/03/20 History release calcium carbonate 600 mg calcium 600 mg PO DAILY #30 tab 12/13/19 05/03/20 Rx (1,500 mg) tablet icosapent ethyl 1 gram capsule 2 gm PO BID #360 cap 12/14/19 05/03/20 Rx lancets 30 gauge #500 ea 01/31/20 05/03/20 Rx pen needle, diabetic 32 gauge x #450 ea 01/31/20 05/03/20 Rx 5/32" diclofenac sodium 1 % topical gel 4 g TOPICAL QID PRN #100 g 03/21/20 05/03/20 Rx calcitriol 0.25 mcg capsule 0.25 mcg PO DAILY #90 cap 04/15/20 05/03/20 Rx atorvastatin 40 mg PO DAILY #30 tab 05/03/20 Rx clopidogrel 75 mg PO DAILY #30 tab 05/03/20 Rx insulin lispro [Humalog KwikPen 0 unit SUBCUT TIDM 05/03/20 05/03/20 History Insulin] ramipril [Altace] 10 mg PO BID #30 cap 05/03/20 Rx Patient History Medical History (Updated 05/03/20 @ 19:05 by MARYANN Esparza) Actinic keratosis Chronic kidney disease, stage II (mild) Former smoker Gout, joint History of prostate cancer Hypertension Intermittent headache Leg weakness, bilateral Obesity Psoriasis Third degree AV block Unsteady gait Vitamin D deficiency Surgical History Aortic valve replaced History of cataract surgery History of hand surgery S/P coronary artery bypass graft x 2 Family History Brother Myocardial infarction Diabetes Sister Diabetes Mother Diabetes Father Stroke Other Nephrolithiasis Denies family history of Ovarian cancer Prostate cancer Breast cancer Colorectal cancer Social History Smoking Status: Former smoker Tobacco Type: Pipe and Cigars Hx Alcohol Use: Yes Alcohol type: beer and wine Hx Substance Use: No Preferred Language: Turkish Communication Ability: Effective Visual Impairment: No Limitations Hearing Ability: Use of Hearing Aid Rice Drier Required: No marital status: Current Living Situation: Spouse current occupational status: retired Feels Safe at Home: Yes Childhood Exposure to Second-Hand Smoke: No caffeine: Yes Dental Care, Regularly: Yes Physical Activity Frequency: 5-6 Times per Week Seatbelt Use: always Sunscreen Use: Yes Review of Systems Review of Systems: All systems reviewed & are unremarkable except as noted in HPI & below Physical Exam Physical Exam: General: no distress Eyes: normal inspection, PERLL Respiratory: chest non tender, clear to auscultation, normal breath sounds, no respiratory distress, no accessory muscle use Cardiac: regular rate and rhythm, no rub or gallop, no murmur, no edema, no jvd GI/: active bowel sounds, no abd pain or tenderness, soft, non distended Extremities: normal range of motion, normal strength, non tender Neuro/Psych: alert and oriented x 3, normal mood and affect, CN II - XII intact, no drift Skin: normal color, dry Results & Data Results & Data ([facility]) Vital Signs (Past 12 Hours) Vital Signs Temp Pulse Pulse Resp BP BP Pulse Ox 05/03/20 17:20 66 19 98 05/03/20 17:10 71 16 97 05/03/20 17:01 67 18 117/101 H 97 05/03/20 17:00 67 15 94 05/03/20 16:50 64 18 96 05/03/20 16:40 71 20 96 05/03/20 16:30 66 17 96 05/03/20 16:27 73 9 L 05/03/20 16:00 68 19 95 05/03/20 15:50 65 19 95 05/03/20 15:40 64 22 95 05/03/20 15:30 66 19 95 05/03/20 15:28 64 18 148/64 H 98 05/03/20 15:27 65 20 148/64 H 95 05/03/20 15:20 66 14 96 05/03/20 15:10 68 18 95 05/03/20 15:00 70 19 05/03/20 14:50 70 24 95 05/03/20 14:44 68 17 94 05/03/20 14:09 36.6 C 73 18 172/93 H 94 PG Care Time/CCT Total # of Minutes Spent Total Time Spent with Patient: Total time spent is greater than 50% in coordination of care (as documented) at patient's floor/unit and/or counseling p atient: Coding Level of Care Code 40531 Inpt Consult Level 5 Diagnoses TIA (transient ischemic attack) G45.9 AFX (amaurosis fugax) G45.3 Thrombocytopenia D69.6 Diabetes type 2, controlled E11.9 Hypertension I10
--- NOTE | 2020-05-03 21:25 | Emergency Department Note ---
ED Visit Note The patient was taken in signout from [facility] at the change of shift. Please see that note for details. The patient was admitted for further evaluation of amaurosis fugax.
[2020-05-03] MEDS ORDERED: NITROGLYCERIN SL 0.4 MG/TAB TAB SL PRN (22:42)
[2020-05-03] MEDS ORDERED: ACETAMINOPHEN 325 MG TAB PO PRN (22:42)
[2020-05-03] MEDS ORDERED: GLUCOSE 10 TABS/TUBE PO PRN (22:42)
[2020-05-03] MEDS ORDERED: GLUCAGON FOR INJ 1 MG VIAL SQ PRN (22:42)
[2020-05-03] MEDS ORDERED: CARBOHYDRATES FOR HYPOGLYCEMIA PO PRN (22:42)
[2020-05-03] MEDS ORDERED: GLUCOSE 40% GEL 15 GM TUBE PO PRN (22:42)
[2020-05-03] MEDS ORDERED: DEXTROSE 50% 50 ML SYRINGE IV PRN (22:42)
[2020-05-03] MEDS ORDERED: ONDANSETRON INJ 2 MG/ML 2 ML VIAL IV PRN (22:42)
--- NOTE | 2020-05-03 22:55 | Electrocardiogram Report ---
Test Reason : Blood Pressure : / mmHG Vent. Rate : 069 BPM Atrial Rate : 069 BPM P-R Int : 230 ms QRS Dur : 170 ms QT Int : 456 ms P-R-T Axes : 002 -58 115 degrees QTc Int : 488 ms Atrial-sensed ventricular-paced rhythm with prolonged AV conduction Abnormal ECG When compared with ECG of 07-AUG-2017 17:46, Vent. rate has increased BY 10 BPM Confirmed by Juan Manuel Petersen ([id number]) on 05/03/2020 10:55:42 PM Referred By: Rex Gomez Confirmed By:Juan Manuel Petersen
[2020-05-03] MEDS: allopurinoL 100 MG TAB PO SCH (23:58)
[2020-05-03] MEDS: CEROVITE ADV FORMULA TAB PO SCH (23:59)
[2020-05-04] MEDS: METOPROLOL TARTRATE 25 MG TAB PO SCH ×2 (00:01→08:25)
[2020-05-04] MEDS ORDERED: INSULIN ASPART 100 UNITS/ML 3 ML PEN SC SCH (07:30)
[2020-05-04] MEDS ORDERED: VASCEPA~ORDER AWAITING ACTION SCH (08:00)
[2020-05-04] MEDS ORDERED: NON-FORMULARY MEDICATION (Insulin Lispro [Humalog Kwikpen Insulin] 100 unit/mL insulin pen SQ SCH (08:00)
--- NOTE | 2020-05-04 08:08 | Billing Data ---
Date of Service May 04, 2020 Disregard billing on previous consult as it will function as an H&P and bill as H&P3 Coding Level of Care Code 12003 OBS Care - Level 3 Comment disregard consult billing, this should be billed as an obs H&P
[2020-05-04] MEDS: allopurinoL 100 MG TAB PO SCH (08:24)
[2020-05-04] MEDS: CEROVITE ADV FORMULA TAB PO SCH (08:24)
[2020-05-04] MEDS: ASPIRIN 81 MG ECTAB PO SCH ×2 (08:25)
--- NOTE | 2020-05-04 08:34 | Electrocardiogram Report ---
Test Reason : Blood Pressure : / mmHG Vent. Rate : 062 BPM Atrial Rate : 062 BPM P-R Int : 238 ms QRS Dur : 178 ms QT Int : 486 ms P-R-T Axes : 040 -58 111 degrees QTc Int : 493 ms Atrial-sensed ventricular-paced rhythm with prolonged AV conduction Abnormal ECG When compared with ECG of 03-MAY-2020 14:39, Vent. rate has decreased BY 7 BPM Confirmed by Shahzad Kauffman ([id number]) on 05/04/2020 8:34:01 AM Referred By: Rex Gomez Confirmed By:Shahzad Kauffman
[2020-05-04] MEDS ORDERED: CALCITRIOL 0.25 MCG CAPSULE PO SCH (09:00)
[2020-05-04] MEDS ORDERED: CALCIUM 600MG + VIT D 400 IU TAB PO SCH (09:00)
[2020-05-04] MEDS ORDERED: NON-FORMULARY MEDICATION (Multivitamin Capsule) PO SCH (09:00)
[2020-05-04] MEDS ORDERED: ASCORBIC ACID 500 MG TAB PO SCH (09:00)
--- NOTE | 2020-05-04 09:01 | XCELERA ---
[id number]
--- NOTE | 2020-05-04 09:38 | Discharge Summary ---
Date of Service May 04, 2020 Admission HPI Per Admitting Provider Mr. Abad is here for amaurosis fugax experienced in the left eye for about 5 seconds yesterday. He went to an opthamologist and was referred to [facility] emergency department for TIA workup. He is currently symptom free and has been since the event yesterday. He denies aches, chills, fever, cough, sob, chest pain, dizziness, palpitations, n/v/d, urinary hesitancy, dysuria. Principal Diagnosis TIA Discharge Exam Constitutional WD/WN, vitals as above Respiratory normal respiratory effort, lungs clear to auscultation Cardiovascular Heart Sounds: + murmur (systolic 3/6 LUSB ) Gastrointestinal (Abdomen) normal bowel sounds, soft, nontender, no hepatosplenomegaly Musculoskeletal no cyanosis or clubbing, extremities motor strength 5/5 Skin no rashes, warm and dry Neurologic moves all extremities and awake Psychiatric A+Ox3, euthymic affect Discharge Data Allergies Allergy/AdvReac Type Severity Reaction Status Date / Time No Known Drug Allergies Allergy Unknown Verified 05/03/20 16:14 Consultations 05/03/20 17:11 ED Decision to Admit Stat 05/03/20 22:42 Consult Case Management - Discharge Planning Routine Ordered Studies 05/03/20 14:26 CT angio head w con Stat CT angio neck with con Stat CT head/brain wo con Stat Hospital Course (1) TIA (transient ischemic attack): CT/CTA head and neck unremarkable. Carotid arteries were widely patent ABCD score puts patient at a 3.1% risk of stroke over the next 90 days. Echo performed showed EF 50%, septal focal thickening with no outflow obstruction, aortic prosthesis stenosis, mild aortic regurg, mild tricuspid regurg, right ventricular systolic pressures 30-40 Recommend the following changes to home medicatons: Increase ramipril to 10 mg BID, change pravastatin to rosuvastatin 20 mg (patient had leg weakness with atorvastatin in the past, continue ASA and add clopidogrel for 4 weeks and then discontinue aspirin. He should see his primary care provider next week. (2) AFX (amaurosis fugax): (3) Thrombocytopenia: Platelets were 126,000, follow up with pcp (4) Diabetes type 2, controlled: Well controlled with last A1 of 6.6% Continue home meds. Hold metformin for 48 hours to avoid interaction with CT dye. (5) Hypertension: Blood pressures were elevated on admission. Will increase Ramipril as above. Instructed on DC to check pressures daily and call pcp if consistently below 100 for systolic or symptoms of dizziness Total Time Total Time Spent Total Time Spent (In Minutes): greater than 30 Discharge Plan Discharge Items Patient Disposition: Home - Self-Care Reason For Visit: VISION CHANGE Discharge Diagnosis: TIA Condition on Discharge: Good Activity: Resume your previous activity Non-emergency contact: Primary Care Provider Call non-emergency contact if: you have any medication questions and your symptoms worsen Follow-up/Referrals: Jose Betts MD [Primary Care Provider] - (follow up one week ) Diet: Carb Consistent or DM2 Addtl Attending Provider Instructions: (1) TIA (transient ischemic attack): Recommend the following changes to home medications: Change pravastatin to rosuvastatin 20 mg, continue aspirin and add clopidogrel for 4 weeks and then discontinue aspirin. He should see his primary care provider next week. (2) Thrombocytopenia: Your platelets were a little on the low side, please follow up with your doctor for any repeat lab work (3) Diabetes type 2, controlled: Please HOLD your METFORMIN for [address] scan to avoid interaction (CT scan was done 05/03 at 5 pm so can RESUME evening 05/05) (5) Hypertension: As we discussed, please check your blood pressures once per day after sitting calmly with legs uncrossed for 15 minutes and take a log with you when you see Dr. Betts and Dr. Reaves. If you are consistently under 100 for the top number (systolic) or are getting dizzy please call your doctor to adjust dosage Pending Studies at Discharge: No Stand-Alone Forms: My [employer], Smoking Cessation Medications and DC Order Prescriptions: New clopidogrel 75 mg tablet 75 mg PO DAILY Qty: 30 RF: 1 rosuvastatin [Crestor] 20 mg tablet 20 mg PO DAILY Qty: 30 RF: 0 Continued allopurinol 100 mg tablet 100 mg PO BID Qty: 180 RF: 3 (DME) blood sugar diagnostic [Wombat Security TechnologiesTouch Verio test strips] Strip See Rx Instructions .ROUTE .MEDSUPPLY Qty: 500 RF: 1 Vascepa 1 gram capsule 2 gm PO BID Qty: 360 RF: 3 (DME) pen needle, diabetic [BD Ultra-Fine Silva Pen Needle] 32 gauge x 5/32" needle See Dose Instructions .ROUTE .MEDSUPPLY Qty: 450 RF: 3 (DME) lancets [OneTouch Delica Plus Lancet] 30 gauge misc See Rx Instructions .ROUTE .MEDSUPPLY Qty: 500 RF: 3 calcitriol 0.25 mcg capsule 0.25 mcg PO DAILY Qty: 90 RF: 3 diclofenac sodium 1 % gel 4 g topical QID PRN (Reason: pain) Qty: 100 RF: 0 calcium carbonate [Calcium 600] 600 mg calcium (1,500 mg) tablet 600 mg PO DAILY Qty: 30 RF: 0 Lantus Solostar U-100 Insulin 100 unit/mL (3 mL) insulin pen 40 units SQ HS RF: 0 ascorbic acid (vitamin C) [Vitamin C] 500 mg Tablet 500 mg PO DAILY RF: 0 multivitamin Capsule 1 cap PO QAM RF: 0 metoprolol tartrate 25 mg Tablet 12.5 mg PO BID RF: 0 PreserVision AREDS [id number] Tablet 2 tab PO BID RF: 0 aspirin 81 mg tablet,delayed release (DR/EC) 81 mg PO BID RF: 0 insulin lispro [Humalog KwikPen Insulin] 100 unit/mL insulin pen 0 unit SUBCUT TIDM RF: 0 Changed ramipril [Altace] 5 mg Capsule 10 mg PO BID Qty: 30 RF: 1 Discontinued metformin 850 mg tablet 850 mg PO DAILY Qty: 90 RF: 3 pravastatin 20 mg tablet 20 mg PO DAILY Qty: 90 RF: 3 Discharge Orders: Discharge Order (Routine); Ordered 05/04/20 Ordered By: Elenita Betts Admission Data Admit Date/Time: 05/03/20 21:37 Attending Provider: Av Issa Admit Provider: Av Issa Primary Care Provider: Jose Betts Other Providers: Cecil Pena Other Interventions: Discharge Summary Assessment (RN) Last Done: 05/04/20 10:21 Supervising Physician Co-Signing Physician Notes I personally examined the patient and verified all katz points of history and exam, discussed case, and agree with decision making with Miles ARAYANP held over due to inability to safely get home. feels fine vitals noted nad heent nc at breathing unlabored no accessory muscles good effort skin no rashes no pallor or icterus TIA -almost certainly small vessel thrombosis type mechanism -no large vessel stenosis -no prior hx of afib, and given that this would be an unlikely mechanism without other pathology at play, safe to discharge with echo/interrogation of device as outpt ---->risks appear to be HTN, hyperlipid, DM -- BP up and non-HDL not at goal (and now that he's had a vascular event should change to at least moderate potency statin anyway) -safe for home -- increase ramipril to 10mg bid, change pravachol to atorvastatin 40mg (will get nonHDL to goal and will offer plaque stabilization type benefit); asa + plavix for ~1 month then plavix alone -as above noted, ABCD2 low risk - safe for home, remainder of w/u as outpt, f/u PCP next week -did not feel compelled to hold pt in-house for neuro consult as he was appropriate for all of this as outpt Coding Level of Care Code 00833 OBS Care - Discharge Diagnoses TIA (transient ischemic attack) G45.9 AFX (amaurosis fugax) G45.3 Thrombocytopenia D69.6 Diabetes type 2, controlled E11.9 Hypertension I10
[2020-05-04] MEDS ORDERED: CLOPIDOGREL BISULFATE 75 MG TAB PO ONE (10:04)
[2020-05-04] MEDS ORDERED: INSULIN GLARGINE SOLOSTAR 100 UNITS/ML 3 ML PEN SQ SCH (21:00)
== END 2020-05-04 10:46 | disposition home or self-care (01) ==
LOC: 2S 13:53 → ED 13:53 → 2S 22:08

== ENCOUNTER 2020-07-23 11:08 | Observation (INO) ==
[2020-07-23 11:37] LABS: Eosinophils # (auto) 0.02 K/uL (0-0.5); Eosinophils % (auto) 0.3 %; Hematocrit (blood only) 45.7 % (42-52); Hemoglobin 15.7 g/dL (14.0-18.0); Immature Granulocytes # (auto) 0.03 K/uL (0.00-0.02); Immature Granulocytes % (auto) 0.5 %; Lymphocytes % (auto) 22.8 %; Mean Corpuscular Hemoglobin 32.6 pg (25-34); Mean Corpuscular Hgb Conc 34.4 g/dL (32-36); Mean Corpuscular Volume 94.8 fL (80-100); Mean Platelet Volume 9.5 fL (7.4-10.4); Monocytes # (auto) 0.62 K/uL (0.11-0.59); Monocytes % (auto) 9.4 %; Neutrophils # (auto) 4.41 K/uL (1.4-6.5); Platelet Count 156 K/uL (130-400); RDW Coefficient of Variation 12.9 % (11.5-14.5); RDW Standard Deviation 44.6 fL (36.4-46.3); Red Blood Count 4.82 M/uL (4.7-6.1); White Blood Count 6.58 K/uL (4.8-10.8)
[2020-07-23 11:44] LABS: iSTAT Creatinine 0.9 mg/dl (0.6-1.3); iSTAT Ionized Calcium 1.2 mmol/l (1.12-1.32); iSTAT Potassium 4.3 mmol/L (3.3-5.0)
--- NOTE | 2020-07-23 11:49 | Emergency Department Note ---
History of Present Illness General Chief complaint: Neuro Symptoms/Deficit Stated complaint: CANT CONTROL LEFT ARM Time Seen by Provider: 07/23/20 11:15 History of Present Illness Provider complaint: Weakness in left arm Onset (ago): hour(s) (18) Location: upper extremity and left Maximum Pain Intensity: 0 Associated symptoms: + weakness; no confusion, no chest pain, no cough, no fe nan/chills, no headaches, no nausea/vomiting, no rash, no seizure, no shortness of breath and no syncope 84-year-old male presents emergency department for left upper extremity weakness. Patient reports that he started noticing that he could not grab things with his left arm yesterday at 5 PM. He states he woke up and spoke with his home theater experience expert who is his friend who told him to come to the emergency department. Patient states he has a history of losing vision intermittently in his left eye last year in May. He has a history of an aortic valve replacement. He is on Plavix. No falls. No headache. No fevers. No loss of taste or smell. Home Medications Medication Instructions Recorded Confirmed Type PreserVision AREDS 2 tab PO BID 03/31/18 07/11/20 History ascorbic acid (vitamin C) [Vitamin 500 mg PO DAILY 03/31/18 07/11/20 History C] metoprolol tartrate 12.5 mg PO BID 03/31/18 07/11/20 History multivitamin 1 cap PO QAM 03/31/18 07/11/20 History insulin glargine 100 unit/mL (3 40 units SQ HS box 08/14/19 07/11/20 History mL) subcutaneous pen OneTouch Verio test strips #500 ea NS 11/07/19 07/11/20 Rx allopurinol 100 mg tablet 100 mg PO BID #180 tab 11/07/19 07/11/20 Rx aspirin 81 mg tablet,delayed 81 mg PO BID tab 12/08/19 07/11/20 History release icosapent ethyl 1 gram capsule 2 gm PO BID #360 cap 12/14/19 07/11/20 Rx lancets 30 gauge #500 ea 01/31/20 07/11/20 Rx pen needle, diabetic 32 gauge x #450 ea 01/31/20 07/11/20 Rx /32" diclofenac sodium 1 % topical gel 4 g TOPICAL QID PRN #100 g 03/21/20 07/11/20 Rx calcitriol 0.25 mcg capsule 0.25 mcg PO DAILY #90 cap 04/15/20 07/11/20 Rx clopidogrel 75 mg tablet 75 mg PO DAILY #90 tab 05/28/20 07/11/20 Rx pravastatin 20 mg tablet 20 mg PO DAILY 06/03/20 07/11/20 History ramipril 5 mg capsule 5 mg PO BID #180 cap 06/03/20 07/11/20 Rx metformin 850 mg tablet 850 mg PO DAILY #90 tab 06/17/20 07/11/20 Rx cholecalciferol (vitamin D3) 25 1,000 unit PO DAILY tab 07/11/20 07/11/20 History mcg (1,000 unit) tablet insulin lispro 100 unit/mL 45 unit SUBCUT DAILY ml 07/11/20 07/11/20 History subcutaneous pen Allergies Allergy/AdvReac Type Severity Reaction Status Date / Time No Known Drug Allergies Allergy Unknown Verified 07/11/20 13:13 Past Med/Surg History Medical History (Updated 07/23/20 @ 13:51 by Marty Pulido) Actinic keratosis Chronic kidney disease, stage II (mild) Former smoker Gout, joint History of prostate cancer Hypertension Intermittent headache Leg weakness, bilateral Obesity Psoriasis Third degree AV block Unsteady gait Vitamin D deficiency Surgical History Aortic valve replaced History of cataract surgery History of hand surgery S/P coronary artery bypass graft x 2 Family History Brother Myocardial infarction Diabetes Sister Diabetes Mother Diabetes Father Stroke Other Nephrolithiasis Denies family history of Ovarian cancer Prostate cancer Breast cancer Colorectal cancer Social History Smoking Status: Never smoker Tobacco Type: Pipe and Cigars Hx Alcohol Use: No Hx Substance Use: No Preferred Language: Syriac Communication Ability: Effective Visual Impairment: No Limitations Hearing Ability: Use of Hearing Aid Fingernail Sculptor Required: No Beliefs That Will Affect Care: None marital status: Current Living Situation: Spouse current occupational status: retired Feels Safe at Home: Yes Childhood Exposure to Second-Hand Smoke: No caffeine: Yes Dental Care, Regularly: Yes Physical Activity Frequency: 5-6 Times per Week Seatbelt Use: always Sunscreen Use: Yes Review of Systems A total of 10 systems reviewed and were otherwise negative Physical Exam Vital Signs Vital Signs - 24 hr 07/23/20 11:10 07/23/20 12:16 Temperature 36.4 C L Temperature Source Temporal Artery Scan Pulse Rate 79 Pulse Rate [Right Finger] 60 Respiratory Rate 16 18 Respiratory Effort / Characteristics Non-Labored Spontaneous Respiratory Depth Normal Respiratory Pattern Regular Blood Pressure 156/89 H Blood Pressure [Right Arm] 151/77 H Blood Pressure Mean 111 Blood Pressure Mean [Right Arm] 101 Blood Pressure Position Sitting Pulse Oximetry 97 96 Oxygen Delivery Method Room Air Room Air Sepsis Recent Fever Within 48 Hours No Sepsis New/Unexplained Change in Mental Status No Sepsis Action Taken by Nursing No Action Required Physical Exam GENERAL: He is oriented to person, place, and time. He appears well-developed and well-nourished. He does not appear distressed. HENT: Exam performed. - Head: Normocephalic and atraumatic. - Right Ear: External ear normal. No mastoid tenderness. - Left Ear: External ear normal. No mastoid tenderness. - Mouth/Throat: The oropharynx is clear and moist. No trismus in the jaw. No dental abscesses or uvula swelling. No oropharyngeal exudate or tonsillar abscesses. EYES: Conjunctivae and EOM are normal. Pupils are equal, round, and reactive to light. Right eye exhibits no discharge. Left eye exhibits no discharge. No scleral icterus. NECK: Normal range of motion. Neck supple. No JVD present. No spinous process tenderness present. No carotid bruit present. No rigidity. No tracheal deviation and normal range of motion present. No Brudzinski's sign and no Kernig's sign noted. CV: Normal rate, regular rhythm, normal heart sounds and intact distal pulses. There is no peripheral edema. Palpable radial pulses bue. PULM/CHEST: Effort normal and breath sounds normal. No respiratory distress. No stridor. He has no wheezes. He has no rales. - Chest Wall: He exhibits no tenderness. ABD: The abdomen is soft. Bowel sounds are normal. He has no distension. No mass is present. There is no tenderness. There is no rebound, no guarding, no Tay's sign and no tenderness at McBurney's point. Rovsig negative. MUSC/SKEL: Normal range of motion. There is no peripheral edema, tenderness or deformity. LYMPH: No cervical adenopathy. NEURO: NIHSS: 1 (5a:1) SKIN: Skin is warm and dry. He is not diaphoretic. PSYCH: He has a normal mood and affect. Behavior is normal. Judgment and thought content normal. Course Course 1115: The patient was evaluated in room B10. A complete history and physical exam was performed. Cardiac monitoring: An order was placed for continuous cardiac monitoring. The monitor shows a rate of 80 with sinus rhythm Code stroke was not called given the onset of symptoms at 5 PM yesterday, patient is not a TPA candidate. 1300: Vital signs stable. Labs within normal limits. Imaging shows no acute infarct. 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 Discussed these findings with Dr. Lidia Gómez telestroke and unfortunately she states that that is too distal and no intervention can be used to decrease his stenosis. Patient is not a candidate for interventional therapy. Patient is not a candidate for TPA given the onset of symptoms. Patient will be admitted to the [facility] hospitalist [facility] for TIA/stroke. [facility] Jorge A Mobley has been notified who states to admit to Dr. Pena. Administered Medications Discontinued Medications Ioversol (Optiray 320 125ml) 120 ml IV ONCE ONE Stop: 07/23/20 11:55 Last Admin: 07/23/20 11:54 Dose: 120 ml Documented by: [id number] Medical Decision Making Laboratory Data Result diagrams: 07/23/20 11:27 07/23/20 11:27 Lab Results 07/23/20 07/23/20 07/23/20 Range/Units 11:27 11:27 11:27 WBC 6.58 (4.8-10.8) K/uL RBC 4.82 (4.7-6.1) M/uL Hgb 15.7 (14.0-18.0) g/dL POC Hgb (14.0-18.0) g/dl Hct 45.7 (42-52) % POC Hct (42-52) % MCV 94.8 (80-100) fL MCH 32.6 (25-34) pg MCHC 34.4 (32-36) g/dL RDW Std Deviation 44.6 (36.4-46.3) fL RDW Coeff of Emily 12.9 (11.5-14.5) % Plt Count 156 (130-400) K/uL MPV 9.5 (7.4-10.4) fL Immature Gran % (Auto) 0.5 % Neut % (Auto) 67.0 % Lymph % (Auto) 22.8 % Storey % (Auto) 9.4 % Eos % (Auto) 0.3 % Baso % (Auto) 0.0 % Neut # (Auto) 4.41 (1.4-6.5) K/uL Lymph # (Auto) 1.50 (1.2-3.4) K/uL Storey # (Auto) 0.62 H (0.11-0.59) K/uL Eos # (Auto) 0.02 (0-0.5) K/uL Baso # (Auto) 0.00 (0-0.2) K/uL Immature Gran # (Auto) 0.03 H (0.00-0.02) K/uL PT 13.9 H (9.0-12.0) Seconds INR 1.3 H (0.9-1.1) APTT 29.5 (21.0-31.0) Seconds PTT Ratio 1.1 POC Sodium (135-144) mmol/L Sodium (136-145) mmol/L POC Potassium (3.3-5.0) mmol/L Potassium (3.5-5.1) mmol/L POC Chloride (101-112) mmol/L Chloride (98-107) mmol/L Carbon Dioxide (21-32) mmol/L POC Total CO2 (24-31) mmol/L Anion Gap (3-11) POC Anion Gap (16-25) mmol/L POC BUN (7-18) mg/dl BUN (7-18) mg/dl Creatinine (0.6-1.4) mg/dl POC Creatinine (0.6-1.3) mg/dl Est Cr Clr Drug Dosing ml/min Est GFR ( Amer) Est GFR (Non-Af Amer) BUN/Creatinine Ratio (10-20) Glucose (70-99) mg/dl POC Glucose (other) (70-99) mg/dl Calcium (8.5-10.1) mg/dl POC Ioniz Calcium Lesley (1.12-1.32) mmol/l Magnesium (1.8-2.4) mg/dl Total Bilirubin (0.2-1) mg/dl AST (15-37) U/L ALT (12-78) U/L Alkaline Phosphatase (45-117) U/L Troponin I (0-0.045) ng/ml Total Protein (6.4-8.2) gm/dl Albumin (3.4-5.0) gm/dl Globulin (2.5-4.0) gm/dl Albumin/Globulin Ratio (0.9-2) Blood Type O Negative Antibody Screen NEGATIVE 07/23/20 07/23/20 Range/Units 11:27 11:32 WBC (4.8-10.8) K/uL RBC (4.7-6.1) M/uL Hgb (14.0-18.0) g/dL POC Hgb 16.0 (14.0-18.0) g/dl Hct (42-52) % POC Hct 47 (42-52) % MCV (80-100) fL MCH (25-34) pg MCHC (32-36) g/dL RDW Std Deviation (36.4-46.3) fL RDW Coeff of Emily (11.5-14.5) % Plt Count (130-400) K/uL MPV (7.4-10.4) fL Immature Gran % (Auto) % Neut % (Auto) % Lymph % (Auto) % Storey % (Auto) % Eos % (Auto) % Baso % (Auto) % Neut # (Auto) (1.4-6.5) K/uL Lymph # (Auto) (1.2-3.4) K/uL Storey # (Auto) (0.11-0.59) K/uL Eos # (Auto) (0-0.5) K/uL Baso # (Auto) (0-0.2) K/uL Immature Gran # (Auto) (0.00-0.02) K/uL PT (9.0-12.0) Seconds INR (0.9-1.1) APTT (21.0-31.0) Seconds PTT Ratio POC Sodium 138 (135-144) mmol/L Sodium 138 (136-145) mmol/L POC Potassium 4.3 (3.3-5.0) mmol/L Potassium 4.3 (3.5-5.1) mmol/L POC Chloride 103 (101-112) mmol/L Chloride 104 (98-107) mmol/L Carbon Dioxide 28 (21-32) mmol/L POC Total CO2 30 (24-31) mmol/L Anion Gap 6.0 (3-11) POC Anion Gap 11.0 L (16-25) mmol/L POC BUN 19 H (7-18) mg/dl BUN 18 (7-18) mg/dl Creatinine 1.04 (0.6-1.4) mg/dl POC Creatinine 0.9 (0.6-1.3) mg/dl Est Cr Clr Drug Dosing 46.8 ml/min Est GFR ( Amer) 77.1 Est GFR (Non-Af Amer) 66.6 BUN/Creatinine Ratio 16.9 (10-20) Glucose 179 H (70-99) mg/dl POC Glucose (other) 182 H (70-99) mg/dl Calcium 9.7 (8.5-10.1) mg/dl POC Ioniz Calcium Lesley 1.20 (1.12-1.32) mmol/l Magnesium 1.9 (1.8-2.4) mg/dl Total Bilirubin 0.6 (0.2-1) mg/dl AST 25 (15-37) U/L ALT 50 (12-78) U/L Alkaline Phosphatase 76 (45-117) U/L Troponin I < 0.015 (0-0.045) ng/ml Total Protein 7.9 (6.4-8.2) gm/dl Albumin 3.8 (3.4-5.0) gm/dl Globulin 4.1 H (2.5-4.0) gm/dl Albumin/Globulin Ratio 0.9 (0.9-2) Blood Type Antibody Screen Imaging Data Radiologist's Impression: UNENHANCED CT OF THE BRAIN; CT ANGIOGRAM OF THE BRAIN; CT ANGIOGRAM OF THE NECK CLINICAL HISTORY: Strokelike symptoms. Left upper extremity weakness. COMPARISON STUDY: CT angiogram of the head and neck dated 05/03/2020. TECHNIQUE: Unenhanced axial CT scan of the brain is performed. Subsequently, following the IV administration of 120 of Optiray 320, CT angiogram of the head and neck was performed from the aortic arch to the vertex. Images are reviewed in the axial, sagittal, and coronal planes. 3-D MIPS images are created and assessed. IV contrast was administered without complication. All measurements were calculated based on NASCET criteria. A dose lowering technique was utilized adhering to the principles of ALARA. CT DOSE: 1142.70 mGy.cm FINDINGS: Brain parenchyma: There is age-related involutional change noting mild to moderate subcortical and periventricular microangiopathic disease. There is no hemorrhage, mass effect, or evidence of acute territorial ischemia by CT criteria. There is no evidence of enhancing mass lesion on the angiogram phase images. The ventricles, sulci, and cisterns are prominent secondary to involutional change. Quesada-white matter differentiation is preserved. No extra- axial fluid collection is seen. Thoracic aorta: There is atherosclerotic calcification of the thoracic aorta. Visualized portions of the thoracic aorta are normal in caliber. The aortic arch demonstrates standard 3-vessel anatomy. Right carotid arterial system: The right common carotid artery is widely patent, as are the right internal and external carotid arteries. There is tortuosity of the mid to distal internal carotid artery. Calcified plaque is noted in the carotid bulb. Left carotid arterial system: The left common carotid artery is widely patent, as are the left internal and external carotid arteries. There is atherosclerotic calcification of the carotid bulb. There is tortuosity of the mid to distal internal carotid artery. Vertebral arteries: The vertebral arteries are widely patent and codominant. Subclavian arteries: Widely patent bilaterally. Intracranial vasculature: There is atherosclerotic calcification of the cavernous carotid and vertebral arteries. The internal carotid arteries are patent at the skull base, as are the anterior and middle cerebral arteries bilaterally. There is high-grade focal stenosis of the M3 segment of the right middle cerebral artery in the anterior temporal fossa seen on image #115. The vertebrobasilar system and posterior cerebral arteries are patent. The left i ntracranial vertebral artery is dominant. There is mild to moderate focal stenosis of the intracranial right vertebral artery seen on image #51. There is no aneurysm or focal vessel cut off seen throughout the intracranial circulation. Jugular veins: Patent bilaterally. Dural sinuses: Patent. Upper chest: Midline sternotomy hours are noted. Partially visualized upper lobe lung parenchyma appears clear. Soft tissues: The visualized pharyngeal soft tissues are normal in appearance noting angiographic phase technique. The oropharyngeal airway appears widely patent. A 1.5 cm nodule is noted in the left lobe of the thyroid gland. The salivary glands are normal in appearance. No cervical lymphadenopathy is seen. Skeletal structures: The skeletal structures are osteopenic. The calvarium appe ars intact. The cervical spine is maintained noting multilevel spondylosis. No lytic or blastic lesion is seen. Orbits: The bony orbits are intact. Orbital contents are normal as visualized noting bilateral ocular lens implants. Sinuses and mastoids: There is trace mucosal thickening within the maxillary antra. The remaining paranasal sinuses are clear. The mastoid air cells are well pneumatized. IMPRESSION: 1. There is no hemorrhage, mass effect, or evidence of acute territorial ischemia by CT criteria. 2. 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 3. There is mild to moderate focal stenosis of the intracranial right vertebral artery. 4. Unremarkable CT angiogram of the neck. ACT 112: Negative or not required by law. Electronically signed by: Ronaldo Cunningham M.D. 07/23/2020 12:23 PM Dictated: 07/23/20 1209Transcribed: 07/23/20 1209 ECG Data Indication: + weakness Rate (beats per minute): 70 Rhythm: + other (paced) ECG ST segments: no Normal ST segments Additional Comments: MI 232 QRS 174 QTC 494 MDM Narrative 1115: The patient was evaluated in room B10. A complete history and physical exam was performed. Cardiac monitoring: An order was placed for continuous cardiac monitoring. The monitor shows a rate of 80 with sinus rhythm Code stroke was not called given the onset of symptoms at 5 PM yesterday, patient is not a TPA candidate. 1300: Vital signs stable. Labs within normal limits. Imaging shows no acute infarct. 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 Discussed these findings with Dr. Lidia Gómez telestroke and unfortunately she states that that is too distal and no intervention can be used to decrease his stenosis. Patient is not a candidate for interventional therapy. Patient is not a candidate for TPA given the onset of symptoms. Patient will be admitted to the [facility] hospitalist service for TIA/stroke. [facility] Jorge A Mobley has been notified who states to admit to Dr. Pena. Impression & Plan TIA (transient ischemic attack) Discharge Plan Visit Data Chief Complaint: Neuro Symptoms/Deficit Stated Complaint: CANT CONTROL LEFT ARM ED Provider: Marty Pulido Discharge Problem: TIA (transient ischemic attack) Patient Disposition: Admitted As Inpatient Forms Stand Alone Forms: [facility] Prescriptions Prescriptions: No Action allopurinol 100 mg tablet 100 mg PO BID Qty: 180 RF: 3 (DME) blood sugar diagnostic [OneTouch Verio test strips] Strip See Rx Instructions .ROUTE .MEDSUPPLY Qty: 500 RF: 1 Vascepa 1 gram capsule 2 gm PO BID Qty: 360 RF: 3 (DME) pen needle, diabetic [BD Ultra-Fine Silva Pen Needle] 32 gauge x 5/32" needle See Dose Instructions .ROUTE .MEDSUPPLY Qty: 450 RF: 3 (DME) lancets [BuildersClouduch Delica Plus Lancet] 30 gauge misc See Rx Instructions .ROUTE .MEDSUPPLY Qty: 500 RF: 3 calcitriol 0.25 mcg capsule 0.25 mcg PO DAILY Qty: 90 RF: 3 clopidogrel 75 mg tablet 75 mg PO DAILY Qty: 90 RF: 3 metformin 850 mg tablet 850 mg PO DAILY Qty: 90 RF: 3 diclofenac sodium 1 % gel 4 g topical QID PRN (Reason: pain) Qty: 100 RF: 0 pravastatin [Pravachol] 20 mg tablet 20 mg PO DAILY RF: 0 ramipril [Altace] 5 mg capsule 5 mg PO BID Qty: 180 RF: 3 Lantus Solostar U-100 Insulin 100 unit/mL (3 mL) insulin pen 40 units SQ HS RF: 0 cholecalciferol (vitamin D3) 25 mcg (1,000 unit) tablet 1,000 unit PO DAILY RF: 0 ascorbic acid (vitamin C) [Vitamin C] 500 mg Tablet 500 mg PO DAILY RF: 0 multivitamin Capsule 1 cap PO QAM RF: 0 metoprolol tartrate 25 mg Tablet 12.5 mg PO BID RF: 0 PreserVision AREDS [id number],160-113-100 [id number] Tablet 2 tab PO BID RF: 0 aspirin 81 mg tablet,delayed release (DR/EC) 81 mg PO BID RF: 0 insulin lispro [Humalog KwikPen Insulin] 100 unit/mL insulin pen 45 unit SUBCUT DAILY RF: 0 Referrals Referrals: Jose Betts MD [Primary Care Provider] -
[2020-07-23 11:54] LABS: Alanine Aminotransferase 50 U/L (12-78); Albumin Level 3.8 gm/dl (3.4-5.0); Aspartate Aminotransferase 25 U/L (15-37); BUN Creatinine Ratio 16.9 (10-20); Blood Urea Nitrogen 18 mg/dl (7-18); Calcium 9.7 mg/dl (8.5-10.1); Carbon Dioxide 28 mmol/L (21-32); Chloride 104 mmol/L (98-107); Creatinine Clr Calc Pharmacy 46.8 ml/min; Est GFR (African American) 77.1; Est GFR (Non-African American) 66.6; Glucose 179 mg/dl (70-99); INR 1.3 (0.9-1.1); Magnesium 1.9 mg/dl (1.8-2.4); Partial Thromboplastin Ratio 1.1; Partial Thromboplastin Time 29.5 Seconds (21.0-31.0); Potassium 4.3 mmol/L (3.5-5.1); Prothrombin Time 13.9 Seconds (9.0-12.0); Sodium 138 mmol/L (136-145)
[2020-07-23] MEDS ORDERED: OPTIRAY 320 125ml IV ONE (11:54)
[2020-07-23 11:59] LABS: Albumin Globulin Ratio 0.9 (0.9-2); Alkaline Phosphatase 76 U/L (45-117); Bilirubin,Total 0.6 mg/dl (0.2-1); Globulin 4.1 gm/dl (2.5-4.0); Total Protein 7.9 gm/dl (6.4-8.2); Troponin I < 0.015 ng/ml (0-0.045)
--- NOTE | 2020-07-23 12:24 | CT Scan Report ---
UNENHANCED CT OF THE BRAIN; CT ANGIOGRAM OF THE BRAIN; CT ANGIOGRAM OF THE NECK CLINICAL HISTORY: Strokelike symptoms. Left upper extremity weakness. COMPARISON STUDY: CT angiogram of the head and neck dated 05/03/2020. TECHNIQUE: Unenhanced axial CT scan of the brain is performed. Subsequently, following the IV adminis tration of 120 of Optiray 320, CT angiogram of the head and neck was performed from the aortic arch t o the vertex. Images are reviewed in the axial, sagittal, and coronal planes. 3-D MIPS images are cre ated and assessed. IV contrast was administered without complication. All measurements were calculate d based on NASCET criteria. A dose lowering technique was utilized adhering to the principles of ALA RA. CT DOSE: 1142.70 mGy.cm FINDINGS: Brain parenchyma: There is age-related involutional change noting mild to moderate subcortical and pe riventricular microangiopathic disease. There is no hemorrhage, mass effect, or evidence of acute ter ritorial ischemia by CT criteria. There is no evidence of enhancing mass lesion on the angiogram phas e images. The ventricles, sulci, and cisterns are prominent secondary to involutional change. Quesada-wh ite matter differentiation is preserved. No extra-axial fluid collection is seen. Thoracic aorta: There is atherosclerotic calcification of the thoracic aorta. Visualized portions of the thoracic aorta are normal in caliber. The aortic arch demonstrates standard 3-vessel anatomy. Right carotid arterial system: The right common carotid artery is widely patent, as are the right int ernal and external carotid arteries. There is tortuosity of the mid to distal internal carotid artery . Calcified plaque is noted in the carotid bulb. Left carotid arterial system: The left common carotid artery is widely patent, as are the left internist medical doctor md al and external carotid arteries. There is atherosclerotic calcification of the carotid bulb. There i s tortuosity of the mid to distal internal carotid artery. Vertebral arteries: The vertebral arteries are widely patent and codominant. Subclavian arteries: Widely patent bilaterally. Intracranial vasculature: There is atherosclerotic calcification of the cavernous carotid and vertebr al arteries. The internal carotid arteries are patent at the skull base, as are the anterior and midd le cerebral arteries bilaterally. There is high-grade focal stenosis of the M3 segment of the right m iddle cerebral artery in the anterior temporal fossa seen on image #115. The vertebrobasilar system a nd posterior cerebral arteries are patent. The left intracranial vertebral artery is dominant. There is mild to moderate focal stenosis of the intracranial right vertebral artery seen on image #51. Ther e is no aneurysm or focal vessel cut off seen throughout the intracranial circulation. Jugular veins: Patent bilaterally. Dural sinuses: Patent. Upper chest: Midline sternotomy hours are noted. Partially visualized upper lobe lung parenchyma appe ars clear. Soft tissues: The visualized pharyngeal soft tissues are normal in appearance noting angiographic pha se technique. The oropharyngeal airway appears widely patent. A 1.5 cm nodule is noted in the left lo be of the thyroid gland. The salivary glands are normal in appearance. No cervical lymphadenopathy is seen. Skeletal structures: The skeletal structures are osteopenic. The calvarium appears intact. The cervic al spine is maintained noting multilevel spondylosis. No lytic or blastic lesion is seen. Orbits: The bony orbits are intact. Orbital contents are normal as visualized noting bilateral ocular lens implants. Sinuses and mastoids: There is trace mucosal thickening within the maxillary antra. The remaining par anasal sinuses are clear. The mastoid air cells are well pneumatized. IMPRESSION: 1. There is no hemorrhage, mass effect, or evidence of acute territorial ischemia by CT criteria. 2. 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 3. There is mild to moderate focal stenosis of the intracranial right vertebral artery. 4. Unremarkable CT angiogram of the neck. ACT 112: Negative or not required by law. Electronically signed by: Ronaldo Cunningham M.D. 07/23/2020 12:23 PM
--- NOTE | 2020-07-23 13:59 | History & Physical Report ---
Date of Service July 23, 2020 Assessment & Plan (1) Cerebrovascular accident (CVA): Mr. Abad is an 84 year old male with a history of Insulin Requiring Type 2 Diabetes Mellitus, Hypertension, Dyslipidemia, Diabetic Nephropathy(CKD), Diabetic Neuropathy, CAD s/p CABG x 2 Vessels (NORRIS to LAD, SVG to PDA 04/2017), Aortic Stenosis s/p Lakisha Zhang #23 Bioprosthetic AVR ([facility] 04/2017), Obstructive Sleep Apnea, Prior TIA May 2020, Complete Heart Block s/p Medtronic Dual Chamber Pacemaker (he is on his second generator), Prostate Cancer, Osteoporosis, and Cerebrovascular Disease who presented to [facility] ER today for a CVA that manifested with Left Arm Weakness and Uncoordinated Movements since yesterday afternoon at 5 p.m. (>21 hours ago). He was watching TV yesterday at 5 p.m. when he noticed that his left arm and hand felt odd, and his hand and arm were and are not "doing what he tells them to do". His left hand movements are clumsy and he cannot grasp objects with his left hand because it's too weak. Patient denies any left leg weakness, facial droop, slurred speech, difficulty swallowing, or any visual disturbance. He specifically denies any blind spots, black spots, amaurosis fugax, loss of visual cyr, or double vision. He denies any urinary or fecal incontinence. He has otherwise been feeling well, and denies any recent illnesses, fevers, chills, cough, dyspnea, or headache. He denies neck injuries or recent falls. He walks approximately 1 to 1.5 miles daily with his . His exertional tolerance is stable and he has not had any limiting cardiopulmonary symptoms. He denies any palpitations or any history of atrial fibrillation or atrial flutter. He denies any history of endocarditis. At this point, thrombolytics are not an option because he is outside of the timeframe. Dr. Pulido spoke with Stroke Specialist regarding high grade M3 stenosis -- not a candidate for endovascular intervention. -- Admit. -- Neurology consult. -- Cardiology consult. -- Interrogate pacemaker to assess for A-Fib or A-Flutter. -- Aspirin 324 mg given. -- Plavix 300 mg given. -- MRI cannot be completed as his pacemaker is NOT MRI compatible. -- PT and OT ordered. -- Increase Pravastatin to 40 mg daily. (2) Cerebrovascular disease: -- As outlined above. (3) S/P CABG (coronary artery bypass graft): CAD s/p CABG x 2 Vessels including NORRIS to LAD, SVG to PDA. -- No angina pectoris or anginal equivalent symptoms. -- Continue Aspirin, Pravastatin. -- Hold Metoprolol currently due to CVA, high grade stenosis. -- Hold Ramipril for the same reason. (4) Aortic valve replaced: -- #23 Lakisha Zhang bioprosthetic AVR for aortic stenosis. -- Functioning appropriately on Echocardiogram 05/2020 with trivial AI. (5) Dyslipidemia: -- Increase Pravastatin to 40 mg daily. (6) Hypertension: -- Hold Metoprolol currently due to CVA, high grade stenosis. -- Hold Ramipril for the same reason. (7) Diabetes type 2, controlled: -- Glycemic consult with pharmacy. -- Hold Metformin for now. -- Diabetic diet. History of Present Illness Chief Complaint: -- Left Arm Weakness. -- Right Middle Cerebral Artery M-3 Segment with Focal High Grade Stenosis. Primary Care Provider: Jose Betts MD Mr. 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 (>21 hours ago). He contacted his Pharmacy Specialist and friend Dr Reaves who advised the patient to seek immediate medical attention. He was watching TV yesterday at 5 p.m. when he noticed that his left arm and hand felt odd, and his hand and arm were and are not "doing what he tells them to do". His left hand movements are clumsy and he cannot grasp objects with his left hand because it's too weak. Patient denies any left leg weakness, facial droop, slurred speech, difficulty swallowing, or any visual disturbance. He specifically denies any blind spots, black spots, amaurosis fugax, loss of visual cyr, or double vision. He denies any urinary or fecal incontinence. He has otherwise been feeling well, and denies any recent illnesses, fevers, chills, cough, dyspnea, or headache. He denies neck injuries or recent falls. He walks approximately 1 to 1.5 miles daily with his . His exertional tolerance is stable and he has not had any limiting cardiopulmonary symptoms. He denies any palpitations or any history of atrial fibrillation or atrial flutter. He denies any history of endocarditis. Patient follows with Dr. Suzanne MARTIN Neurology. His PCP is Dr. Jose Betts. Allergies Allergy/AdvReac Type Severity Reaction Status Date / Time No Known Drug Allergies Allergy Unknown Verified 07/23/20 14:05 Home Medications Medication Instructions Recorded Confirmed Type PreserVision AREDS 2 tab PO BID 03/31/18 07/23/20 History ascorbic acid (vitamin C) [Vitamin 500 mg PO QAM 03/31/18 07/23/20 History C] metoprolol tartrate 12.5 mg PO BID 03/31/18 07/23/20 History insulin glargine 100 unit/mL (3 40 units SQ HS box 08/14/19 07/23/20 History mL) subcutaneous pen OneTouch Verio test strips #500 ea NS 11/07/19 07/23/20 Rx allopurinol 100 mg tablet 100 mg PO BID #180 tab 11/07/19 07/23/20 Rx aspirin 81 mg tablet,delayed 81 mg PO BID tab 12/08/19 07/23/20 History release icosapent ethyl 1 gram capsule 2 gm PO BID #360 cap 12/14/19 07/23/20 Rx lancets 30 gauge #500 ea 01/31/20 07/23/20 Rx pen needle, diabetic 32 gauge x #450 ea 01/31/20 07/23/20 Rx 5/32" pravastatin 20 mg tablet 20 mg PO QPM 06/03/20 07/23/20 History ramipril 5 mg capsule 5 mg PO BID #180 cap 06/03/20 07/23/20 Rx insulin lispro 100 unit/mL 45 unit SUBCUT DAILY ml 07/11/20 07/23/20 History subcutaneous pen calcitriol 0.25 mcg PO QAM 07/23/20 07/23/20 History metformin 425 mg PO BID 07/23/20 07/23/20 History multivitamin 1 tab PO QAM 07/23/20 07/23/20 History Past Med/Surg History Medical History (Updated 07/24/20 @ 09:30 by Jaime Stanley PA-C) Actinic keratosis Chronic kidney disease, stage II (mild) Former smoker Gout, joint History of prostate cancer Hypertension Intermittent headache Leg weakness, bilateral Obesity Psoriasis Third degree AV block Unsteady gait Vitamin D deficiency Surgical History Aortic valve replaced History of cataract surgery History of hand surgery S/P coronary artery bypass graft x 2 Family History Brother Myocardial infarction Diabetes Sister Diabetes Mother Diabetes Father Stroke Other Nephrolithiasis Denies family history of Ovarian cancer Prostate cancer Breast cancer Colorectal cancer Social History Smoking Status: Former smoker Tobacco Type: Pipe and Cigars Hx Alcohol Use: No Hx Substance Use: No Preferred Language: Khmer Communication Ability: Effective Visual Impairment: No Limitations Hearing Ability: Use of Hearing Aid Researcher Required: No Beliefs That Will Affect Care: None marital status: Current Living Situation: Spouse current occupational status: retired Other Information That Helps Us Care for You: No Feels Safe at Home: Yes Safety Concerns: Feels Safe At This Time Childhood Exposure to Second-Hand Smoke: No caffeine: Yes Dental Care, Regularly: Yes Physical Activity Frequency: 5-6 Times per Week Seatbelt Use: always Sunscreen Use: Yes Assistive Devices: CPAP Review of Systems Review of Systems: All systems reviewed & are unremarkable except as noted in Subjective Physical Exam Physical Exam: GENERAL: Patient in no acute distress. HEENT: Head is atraumatic, normocephalic. EOM's intact. Facies symmetric. No perioral cyanosis. NECK: No JVD. JVP is at the level of the clavicle sitting upright. Carotid upstrokes are + 2 bilaterally without obvious bruits. CHEST/LUNGS: Clear to auscultation throughout all lung cyr. No wheezes, rales, or crackles. CVS: S1 and S2 are regular with a grade 1/6 basal systolic murmur. PMI is nondisplaced. No lifts, heaves, or thrills. No abdominal aortic or renal bruits. Palpable pacemaker generator in the left subclavian fossa. ABDOMINAL EXAM: Bowel sounds are present. No masses, organomegaly, or tenderness. EXTREMITIES: No clubbing or cyanosis. No edema. Intact radial pulses bilaterally. NEUROLOGIC EXAM: Patient is awake, alert, and oriented. Pleasant and cooperative. Answers questions appropriately. Speech is clear. Left upper extremity is with markedly decreased medical transcription strength, decreased strength for wrist extension, sensation is grossly intact to light touch. Bilateral LE strength appears to be intact. Gait pattern is slightly wide based. EKG 07/23/2020: -- Atrially sensed and V-paced rhythm. -- Renal Medicine Physician shows the same. Results & Data Results & Data ([facility]) Vital Signs (Past 12 Hours) Vital Signs Temp Pulse Pulse Resp BP BP Pulse Ox 07/23/20 12:16 60 18 151/77 H 96 07/23/20 11:10 36.4 C L 79 16 156/89 H 97 Laboratory Results Laboratory Results - last 24 hr 07/23/20 07/23/20 07/23/20 11:27 11:27 11:27 WBC 6.58 RBC 4.82 Hgb 15.7 POC Hgb Hct 45.7 POC Hct MCV 94.8 MCH 32.6 MCHC 34.4 RDW Std Deviation 44.6 RDW Coeff of Emily 12.9 Plt Count 156 MPV 9.5 Immature Gran % (Auto) 0.5 Neut % (Auto) 67.0 Lymph % (Auto) 22.8 [place] % (Auto) 9.4 Eos % (Auto) 0.3 Baso % (Auto) 0.0 Neut # (Auto) 4.41 Lymph # (Auto) 1.50 [place] # (Auto) 0.62 H Eos # (Auto) 0.02 Baso # (Auto) 0.00 Immature Gran # (Auto) 0.03 H PT 13.9 H INR 1.3 H APTT 29.5 PTT Ratio 1.1 POC Sodium Sodium POC Potassium Potassium POC Chloride Chloride Carbon Dioxide POC Total CO2 Anion Gap POC Anion Gap POC BUN BUN Creatinine POC Creatinine Est Cr Clr Drug Dosing Est GFR ( Amer) Est GFR (Non-Af Amer) BUN/Creatinine Ratio Glucose POC Glucose (other) Calcium POC Ioniz Calcium Lesley Magnesium Total Bilirubin AST ALT Alkaline Phosphatase Troponin I Total Protein Albumin Globulin Albumin/Globulin Ratio Blood Type O Negative Antibody Screen NEGATIVE 07/23/20 07/23/20 11:27 11:32 WBC RBC Hgb POC Hgb 16.0 Hct POC Hct 47 MCV MCH MCHC RDW Std Deviation RDW Coeff of Emily Plt Count MPV Immature Gran % (Auto) Neut % (Auto) Lymph % (Auto) [place] % (Auto) Eos % (Auto) Baso % (Auto) Neut # (Auto) Lymph # (Auto) [place] # (Auto) Eos # (Auto) Baso # (Auto) Immature Gran # (Auto) PT INR APTT PTT Ratio POC Sodium 138 Sodium 138 POC Potassium 4.3 Potassium 4.3 POC Chloride 103 Chloride 104 Carbon Dioxide 28 POC Total CO2 30 Anion Gap 6.0 POC Anion Gap 11.0 L POC BUN 19 H BUN 18 Creatinine 1.04 POC Creatinine 0.9 Est Cr Clr Drug Dosing 46.8 Est GFR ( Amer) 77.1 Est GFR (Non-Af Amer) 66.6 BUN/Creatinine Ratio 16.9 Glucose 179 H POC Glucose (other) 182 H Calcium 9.7 POC Ioniz Calcium Lesley 1.20 Magnesium 1.9 Total Bilirubin 0.6 AST 25 ALT 50 Alkaline Phosphatase 76 Troponin I < 0.015 Total Protein 7.9 Albumin 3.8 Globulin 4.1 H Albumin/Globulin Ratio 0.9 Blood Type Antibody Screen Diagnostic Findings CTA of Head and Neck 07/23/2020: 1. No hemorrhage, mass effect, or evidence of acute territorial ischemia by CT criteria. 2. High-grade focal stenosis of the M3 segment of the right middle cerebral artery. 3. Mild to moderate focal stenosis of the intracranial right vertebral artery. 4. Unremarkable CT Angiogram of the neck. Code Status & VTE Plan Code Status Full Code VTE Prophylaxis Plan VTE Prophylaxis will be ordered: Yes Supervising Physician Co-Signing Physician Notes I personally saw and examined the patient. I verified all katz points and agree with MARYLIN Stanley with the following exceptions and/or additions: 84-year-old right-handed male who presents to the ER with sudden onset left hand/arm weakness starting at 7 PM last night. O/E finger abduction 4/5, thumb abduction 3/5 left medical transcription strength 4/5, wrist extension 4/5, wrist flexion 4+/5, elbow flexion 3/5, elbow extension 4+/5, shoulder abduction 4+/5, 5/5 power elsewhere in LUE,LLE,RLE. CN2-> 12 intact. Speech exam normal, HS RRR without murmur, Chest CTAB. A/P Suspected CVA while taking aspirin: Not TPA candidate Add clopidogrel Unable to tolerate higher dose statin. Continue pravastatin 20 mg p.o. daily. Unable to get MRI due to pacemaker but if symptoms > 24 hours his occlusion noted on CTA head is evidence enough for CVA. Allow permissive hypertension and discontinue metoprolol and ramipril TTE PT/OT evals Consult neurology PG Care Time/CCT Total # of Minutes Spent Total Time Spent with Patient: Total time spent is greater than 50% in coordination of care (as documented) at patient's floor/unit and/or counseling patient:40 Coding Level of Care Code 28518 OBS Care - Level 3 Diagnoses Cerebrovascular accident (CVA) I63.9 Cerebrovascular disease I67.9 S/P CABG (coronary artery bypass graft) Z95.1 Aortic valve replaced Z95.2 Dyslipidemia E78.5 Hypertension I10 Diabetes type 2, controlled E11.9 Time Spent (min) 65
[2020-07-23] MEDS ORDERED: CLOPIDOGREL BISULFATE 300 MG TAB PO STA (14:20)
[2020-07-23] MEDS ORDERED: ASPIRIN 81 MG CHEW PO STA (14:20)
[2020-07-23] MEDS ORDERED: CLOPIDOGREL BISULFATE 300 MG TAB ONE (16:57)
[2020-07-23] MEDS ORDERED: ASPIRIN CHEW 324 MG ONE (16:57)
[2020-07-23] MEDS ORDERED: ACETAMINOPHEN 325 MG TAB PO PRN (19:22)
[2020-07-23] MEDS ORDERED: ONDANSETRON INJ 2 MG/ML 2 ML VIAL IV PRN (19:22)
[2020-07-23] MEDS ORDERED: ALUMINUM/MAGNESIUM/SIMETH (MAALOX MAX) 30 ML UDC PO PRN (19:22)
[2020-07-23] MEDS ORDERED: ZOLPIDEM TARTRATE 5 MG TAB PO PRN (19:22)
[2020-07-23] MEDS ORDERED: MAGNESIUM HYDROXIDE SUSP 30 ML UDC PO PRN (19:22)
[2020-07-23] MEDS ORDERED: PHARMACIST DISCHARGE MED REC CONSULT PRN (19:22)
[2020-07-23] MEDS ORDERED: PHARMACY GLYCEMIC MGMT CONSULT PRN (19:28)
[2020-07-23] MEDS: SODIUM CHLORIDE 0.9% 1000ML 1,000 ML IV SCH (19:54)
[2020-07-23] MEDS ORDERED: DEXTROSE 50% 50 ML SYRINGE IV PRN (20:30)
[2020-07-23] MEDS ORDERED: CARBOHYDRATES FOR HYPOGLYCEMIA PO PRN (20:30)
[2020-07-23] MEDS ORDERED: GLUCOSE 10 TABS/TUBE PO PRN (20:30)
[2020-07-23] MEDS ORDERED: GLUCAGON FOR INJ 1 MG VIAL IM PRN (20:30)
[2020-07-23] MEDS ORDERED: GLUCOSE 40% GEL 15 GM TUBE PO PRN (20:30)
[2020-07-23 20:57] LABS: BUN Creatinine Ratio 13.6 (10-20); Calcium 9.5 mg/dl (8.5-10.1); Creatinine Clr Calc Pharmacy 31.6 ml/min; Est GFR (African American) 48.4; Est GFR (Non-African American) 41.7; Potassium 4.1 mmol/L (3.5-5.1)
[2020-07-23] MEDS ORDERED: NON-FORMULARY MEDICATION (Vitamins A,C,E-Zinc-Copper [Preservision Areds] 7,160-113-100 u PO SCH (21:00)
[2020-07-23] MEDS ORDERED: INSULIN GLARGINE SOLOSTAR 100 UNITS/ML 3 ML PEN SC ONE (21:00)
[2020-07-23] MEDS: INSULIN ASPART 100 UNITS/ML 3 ML PEN SC SCH (21:25)
[2020-07-23] MEDS: allopurinoL 100 MG TAB PO SCH (21:26)
[2020-07-23] MEDS: PRAVASTATIN SOD 40 MG TAB PO SCH (21:26)
--- NOTE | 2020-07-23 21:48 | Pharmacy Report ---
Glycemic Control Consultation - Date of Service July 23, 2020 - Scope Scope: Glycemic Pharmacist consulted for glycemic control and to write orders per [facility] inpatient glycemic control protocol. - Objective Weight: 71.717 kg Accuchecks BSG (last 24hrs): 07/23/20 07/23/20 07/23/20 11:27 11:32 20:11 Glucose 179 H POC Glucose 186 H POC Glucose (other) 182 H Laboratory Data (last 24hrs): 07/23/20 11:27 Potassium 4.3 Carbon Dioxide 28 Anion Gap 6.0 Creatinine 1.04 Est Cr Clr Drug Dosing 46.8 - Recent Pertinent Medications Outpatient Anti-diabetic Regimen: * Lantus 34-40 units HS ("scale") * Humalog TID meals; carb ratio = 5 (breakfast + lunch); 4 (dinner) * A1c = 7.1 % (07/11/20) - Assessment & Plan Assessment & Plan: ASSESSMENT: * 84 y/o M admitted with CVA; followed by [facility] Endocrinology, Dr. Hay. Spoke with patient on phone to obtain history. Diabetes appears very well controlled and patients sounds knowledgeable. He has a CGM. Per last Endo note 12/08/19: * Long-acting Insulin Basal (units) 36-40 units Lantus * Bolus Base Dose (units) Breakfast: 8-10 units, lunch: 5-10 units, supper: 13-19 units Humalog * Patient states he takes Lantus "34-40" units, depending on BG measured at HS. If it is "high" (he defines this as >180), he will give a full 40. If it is "low" (i.e. 110's), he will give less... 36 units (or 34). Questioned him on how much he would inject given tonight BG is 186. He stated, "36, maybe 37"... unsure the discrepancy in the scale he follows as he previously stated this would be a "high" reading needing the full amount... * Patient calculates Humalog dose based on carbs and CR of 5 (breakfast + lunch) and 4 (dinner). * Given patient's insistence that his outpatient regimen works well, will tentatively base dosing on this. PLAN FOR INPATIENT GLYCEMIC CONTROL: * Holding outpatient oral diabetes medications * Basal insulin * Lantus 36 units SQ x 1 - this dose was agreed upon with patient * Bolus insulin * NovoLog per scale ACHS or Q6hrs while NPO * Goal Range: Low 110 mg/dL - High 150 mg/dL * Correction Factor: 25 mg/dL/unit * Nutritional / Prandial insulin per carb ratio of 1 unit per 5 grams CHO consumed * Please note that the plan above was derived based on current level of insulin resistance and hospital stress. These recommendations are appropriate for inpatient admission only. Plan of care upon discharge will need to be reassessed to avoid potential outpatient hypo/hyperglycemia. Thank you.
[2020-07-24 06:15] LABS: Eosinophils # (auto) 0.06 K/uL (0-0.5); Hematocrit (blood only) 41.6 % (42-52); Hemoglobin 14.1 g/dL (14.0-18.0); Immature Granulocytes # (auto) 0.02 K/uL (0.00-0.02); Immature Granulocytes % (auto) 0.3 %; Lymphocytes # (auto) 1.18 K/uL (1.2-3.4); Mean Corpuscular Hgb Conc 33.9 g/dL (32-36); Mean Corpuscular Volume 94.3 fL (80-100); Mean Platelet Volume 9.5 fL (7.4-10.4); Monocytes # (auto) 0.66 K/uL (0.11-0.59); Monocytes % (auto) 10.6 %; Neutrophils % (auto) 69.1 %; Platelet Count 163 K/uL (130-400); RDW Coefficient of Variation 13.2 % (11.5-14.5); RDW Standard Deviation 45.8 fL (36.4-46.3); Red Blood Count 4.41 M/uL (4.7-6.1); White Blood Count 6.22 K/uL (4.8-10.8)
--- NOTE | 2020-07-24 06:46 | Electrocardiogram Report ---
Test Reason : Blood Pressure : / mmHG Vent. Rate : 070 BPM Atrial Rate : 070 BPM P-R Int : 232 ms QRS Dur : 174 ms QT Int : 458 ms P-R-T Axes : 010 -53 116 degrees QTc Int : 494 ms Poor data quality, interpretation may be adversely affected Atrial-sensed ventricular-paced rhythm with prolonged AV conduction Abnormal ECG When compared with ECG of 04-MAY-2020 06:46, Vent. rate has increased BY 8 BPM Confirmed by Juan Manuel Petersen ([id number]) on 07/24/2020 6:46:22 AM Referred By: REFERRED SELF Confirmed By:Juan Manuel Petersen
[2020-07-24 06:49] LABS: BUN Creatinine Ratio 23.7 (10-20); Calcium 8.7 mg/dl (8.5-10.1); Creatinine Clr Calc Pharmacy 50.9 ml/min; Est GFR (African American) 86.1; Est GFR (Non-African American) 74.2; Potassium 3.7 mmol/L (3.5-5.1)
[2020-07-24] MEDS: SODIUM CHLORIDE 0.9% 1000ML 1,000 ML IV SCH ×2 (07:08→16:42)
--- NOTE | 2020-07-24 08:31 | Hospitalist Progress Note ---
Date of Service July 24, 2020 Assessment & Plan (1) Cerebrovascular accident (CVA): 1- left arm symptoms possibly related to MCA stenosis neuro and cardio consults placed unable to perform MRI due to pacemaker Echo pending aspirin, plavix started goal SBP < 180 per neuro 1-20 repeat HCT without infarction cardio to interrogate pacemaker to see if afib PT, OT and ST to see (2) Hypertension: keep SBP < 180 -20 we are currently at goal SBP < 180, currently SBP 147 gradually lower BP towards goal SBP < 130 will resume toprol 12.5mg BID today patient's other home BP med is ramipril 5mg BID which is max dose ramipril is nonformulary, so if SBP remains > 130 tomorrow, will add STEFANI (3) Diabetes type 2, controlled: lantus 30 units metformin on hold glycemic management (4) S/P CABG (coronary artery bypass graft): (5) Aortic valve replaced: (6) Dyslipidemia: pravastatin 40 will need F/U with PCP for maintaining BP < 130/80, LDL < 70 and A1c < 7 also, will need F/U neuro in 2-4 weeks (Yolanda COULTER) (7) Gout: Admission and Anticipated Discharge Date Admission Date: July 23, 2020 Subjective Left arm weakness started two nights ago. Denies dysphagia and dysarthria. No left leg weakness. After onset of left arm and hand symptoms, he decided to go to bed. When he woke up yesterday morning with persistence of symptoms, patient decided to call physicians who directed him to ER. Currently patient is feeling grateful that he does not have worse symptoms. He does have persistent left hand and arm weakness that has not improved since onset. Denies paresthesias. No headache, no nausea or vomiting. No difficulty with bowel or bladder. No chest pain or palpitations. Review of Systems Constitutional: no fever, no chills, no fatigue, no weakness, no anorexia, no weight loss and no weight gain Ear, Nose, Mouth, Throat: no nasal congestion, no sore throat and no dysphagia Respiratory: no cough and no dyspnea Cardiovascular: no chest pain, no dyspnea on exertion, no orthopnea and no palpitations Gastrointestinal: no abdominal pain, no nausea, no vomiting, no hematemesis, no dysphagia, no constipation, no diarrhea/loose stools, no blood in stools and no melena Genitourinary: no dysuria and no urinary frequency Musculoskeletal: no back pain, no joint pain, no myalgia and no muscle weakness Integumentary: no rash, no lesions, no skin ulcer, no erythema, no dry skin and no pruritus Neurologic: no falls, no localized weakness, no generalized weakness, no numbness, no paresthesia, no tremor(s) and no headache(s) Psychiatric: no depression, no suicidal ideation, no homicidal ideation and no anxiety Endocrine: no cold intolerance and no heat intolerance Hematologic / Lymphatic: no easy bleeding and no easy bruising Physical Exam Constitutional: well developed and well nourished; no acute distress Eyes: PERRL, conjunctivae normal, anicteric sclerae ENMT: Mouth: oral mucous membranes not dry Respiratory: normal respiratory effort; no respiratory distress and no labored breathing Auscultation: lungs clear to auscultation bilaterally; no crackles, no rales, no rhonchi and no wheezes Cardiovascular: Rate/Rhythm: regular rate and regular rhythm Heart Sounds: no murmur and no cardiac rub Vessels: normal peripheral pulses and radial pulses present; no JVD Extremities: no edema Gastrointestinal (Abdomen): Inspection/Auscultation: abdomen normal to inspection and normal bowel sounds; abdomen not distended Percussion/Palpation: abdomen soft; abdomen nontender, no guarding, abdomen not rigid and no hepatosplenomegaly Musculoskeletal: Head/Neck/Chest: normocephalic and head atraumatic Spine: no cervical spinal tenderness, no cervical muscular tenderness, no thoracic spinal tenderness and no lumbar spinal tenderness Skin: no rashes, warm and dry Neurologic: CN's II-XI intact bilaterally, moves all extremities and + focal motor deficit (left hand weakness, weakness with extension and flexion of left arm) Motor/Sensory: no tremor and no sensory deficit Psychiatric: Orientation: alert, oriented to person, oriented to place and oriented to time Apperance: appropriately groomed; not disheveled Affect: euthymic affect; no anxious affect and no tearful affect Genitourinary: no Cisneros catheter Results & Data Results & Data ([facility]) Vital Signs (Past 12 Hours) Vital Signs Temp Pulse Pulse Resp BP Pulse Ox 07/24/20 07:34 36.9 C 65 20 123/72 92 07/24/20 04:20 66 07/24/20 03:44 36.3 C L 67 20 137/67 92 07/24/20 00:26 62 15 93 07/23/20 23:22 36.6 C 67 16 128/73 94 Laboratory Results Abnormal lab results 07/23/20 07/23/20 07/24/20 Range/Units 19:57 20:11 05:43 RBC 4.41 L (4.7-6.1) M/uL Hct 41.6 L (42-52) % Lymph # (Auto) 1.18 L (1.2-3.4) K/uL [place] # (Auto) 0.66 H (0.11-0.59) K/uL BUN 21 H (7-18) mg/dl Creatinine 1.53 H D (0.6-1.4) mg/dl BUN/Creatinine Ratio (10-20) Glucose 203 H (70-99) mg/dl POC Glucose 186 H (70-99) mg/dl 07/24/20 07/24/20 Range/Units 05:43 07:33 RBC (4.7-6.1) M/uL Hct (42-52) % Lymph # (Auto) (1.2-3.4) K/uL [place] # (Auto) (0.11-0.59) K/uL BUN 23 H (7-18) mg/dl Creatinine (0.6-1.4) mg/dl BUN/Creatinine Ratio 23.7 H (10-20) Glucose (70-99) mg/dl POC Glucose 116 H (70-99) mg/dl Medications Administered Current Inpatient Medications Acetaminophen (Acetaminophen 325 Mg Tab) 650 mg PO Q6H PRN PRN Reason: Pain or Fever Stop: 08/22/20 19:21 Al Hydrox/Mg Hydrox/Simethicone (Aluminum/Magnesium/Simeth (Maalox Max) 30 Ml Udc) 30 ml PO Q6H PRN PRN Reason: Heartburn Stop: 08/22/20 19:21 Allopurinol (Allopurinol 100 Mg Tab) 100 mg PO BID [facility] Stop: 08/22/20 20:59 Last Admin: 07/24/20 08:44 Dose: 100 mg Documented by: Ascorbic Acid (Ascorbic Acid 500 Mg Tab) 500 mg PO QAM [facility] Stop: 08/23/20 08:59 Last Admin: 07/24/20 08:43 Dose: 500 mg Documented by: Aspirin (Aspirin 81 Mg Ectab) 81 mg PO DAILY [facility] Stop: 08/23/20 08:59 Last Admin: 07/24/20 08:43 Dose: 81 mg Documented by: Calcitriol (Calcitriol 0.25 Mcg Capsule) 0.25 mcg PO QAM [facility] Stop: 08/23/20 08:59 Last Admin: 07/24/20 08:43 Dose: 0.25 mcg Documented by: Clopidogrel Bisulfate (Clopidogrel Bisulfate 75 Mg Tab) 75 mg PO QAM [facility] Stop: 08/23/20 08:59 Last Admin: 07/24/20 08:43 Dose: 75 mg Documented by: Dextrose (Dextrose 50% 50 Ml Syringe) 25 - 50 ml IV UD PRN; Protocol PRN Reason: Hypoglycemia Protocol Stop: 08/22/20 20:29 Glucagon (Glucagon For Inj 1 Mg Vial) 1 mg IM UD PRN; Protocol PRN Reason: Hypoglycemia Protocol Stop: 08/22/20 20:29 Glucose (Glucose 40% Gel 15 Gm Tube) 15 - 30 gm PO UD PRN; Protocol PRN Reason: Hypoglycemia Protocol Stop: 08/22/20 20:29 Glucose (Glucose 10 Tabs/Tube) 4 - 8 tabs PO UD PRN; Protocol PRN Reason: Hypoglycemia Protocol Stop: 08/22/20 20:29 Sodium Chloride (Nss 1000ml) 1,000 mls @ 100 mls/hr IV .Q10H [facility] Stop: 08/22/20 19:59 Last Admin: 07/24/20 07:08 Dose: 100 mls/hr Documented by: Insulin Aspart (Insulin Aspart 100 Units/Ml 3 Ml Pen) 0 units SC ACHS [facility] Stop: 08/22/20 20:59 Last Admin: 07/24/20 12:23 Dose: 4 units Documented by: Magnesium Hydroxide (Magnesium Hydroxide Susp 30 Ml Udc) 30 ml PO Q6H PRN PRN Reason: Constipation Stop: 08/22/20 19:21 Miscellaneous (Vascepa: Order Awaiting Action) 1 ea N/A QS [facility] Stop: 08/23/20 00:00 Last Admin: 07/24/20 08:19 Dose: Not Given Documented by: Miscellaneous (Carbohydrates For Hypoglycemia ) 15 - 30 gm PO UD PRN PRN Reason: Hypoglycemia Treatment Stop: 08/22/20 20:29 Miscellaneous Information (Pharmacist Discharge Med Rec Consult) 1 ea N/A UD PRN PRN Reason: Consult Stop: 08/22/20 19:21 Miscellaneous Information (Pharmacy Glycemic Mgmt Consult) 1 ea N/A UD PRN PRN Reason: Consult Stop: 08/22/20 19:27 Multivitamins (Multivitamin Tab) 1 tab PO QAM TOM Stop: 08/23/20 08:59 Last Admin: 07/24/20 08:43 Dose: 1 tab Documented by: Ondansetron HCl (Ondansetron Inj 2 Mg/Ml 2 Ml Vial) 4 mg IV Q8 PRN PRN Reason: Nausea Stop: 08/22/20 19:21 Pravastatin Sodium (Pravastatin Sod 40 Mg Tab) 40 mg PO HS TMO Stop: 08/22/20 20:59 Last Admin: 07/23/20 21:26 Dose: 40 mg Documented by: Zolpidem Tartrate (Zolpidem Tartrate 5 Mg Tab) 5 mg PO HS PRN PRN Reason: Sleep Stop: 08/22/20 19:21 Results / Data Diagnostics CT: CTA head and neck IMPRESSION: 1. There is no hemorrhage, mass effect, or evidence of acute territorial ischemia by CT criteria. 2. 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 3. There is mild to moderate focal stenosis of the intracranial right vertebral artery. 4. Unremarkable CT angiogram of the neck. PG Care Time/CCT Total # of Minutes Spent Total Time Spent with Patient: Total time spent is greater than 50% in coordination of care (as documented) at patient's floor/unit and/or counseling patient: Coding Level of Care Code 93857 Subseq Hosp Care Lvl 2 Diagnoses Cerebrovascular accident (CVA) I63.511 CVA mechanism: stenosis Precerebral and cerebral artery: middle cerebral artery Laterality of affected vessel: right Hypertension I10 Hypertension type: essential hypertension Diabetes type 2, controlled E11.9 Diabetes mellitus intermediate insulin use: unspecified equipment operator intermodal yard insulin use status Diabetes mellitus complication status: without complication S/P CABG (coronary artery bypass graft) Z95.1 Aortic valve replaced Z95.2 Dyslipidemia E78.5 Gout M10.9 (1) Diabetes type 2, controlled 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
[2020-07-24] MEDS: INSULIN ASPART 100 UNITS/ML 3 ML PEN SC SCH ×4 (08:41→21:06)
[2020-07-24] MEDS: CALCITRIOL 0.25 MCG CAPSULE PO SCH (08:43)
[2020-07-24] MEDS: CLOPIDOGREL BISULFATE 75 MG TAB PO SCH (08:43)
[2020-07-24] MEDS: ASCORBIC ACID 500 MG TAB PO SCH (08:43)
[2020-07-24] MEDS: MULTIVITAMIN TAB PO SCH (08:43)
[2020-07-24] MEDS: ASPIRIN 81 MG ECTAB PO SCH (08:43)
[2020-07-24] MEDS: allopurinoL 100 MG TAB PO SCH ×2 (08:44→21:07)
--- NOTE | 2020-07-24 10:31 | Neurology Consultation ---
Date of Consultation July 24, 2020 Assessment & Plan (1) Diabetic peripheral neuropathy associated with type 2 diabetes mellitus: (2) Diabetic nephropathy associated with type 2 diabetes mellitus: (3) Dyslipidemia: (4) Hypertension: (5) Aortic valve replaced: (6) Lacunar stroke: Shaan Abad is an 84 yo man w/ PMH of TIA on plavix, DM, HTN, CKD II, HLD, gout, CAD s/p CABG with prosthetic aortic valve, chronic gait dysfunction, GERMAN and osteoporosis who p/t [facility] with acute onset of LUE weakness. Symptom localization: right pure motor stroke (thalamus, internal capsule, basis pontis) Stroke mechanism: lacunar/lipohyalinosis, less likely cardioembolic Stroke WorkUp: - CT head: shows no hemorrhage or hypodensity, moderate generalized atrophy with ex vacuo dilation, moderate SVID. Repeat CTH pending. - CTA head/neck: diffuse intracranial atherosclerosis with stable left M2/M3 high-grade stenosis as compared to CTA head from 05/03/2020 - MRI brain: unable to obtain 2/2 pacemaker - TTE: pending (ordered) - Telemetry: pending - A1c: 7.1 - FLP: unable to calculate due to hyperTG - Troponin: negative Stroke Management: - Acute treatment: ASA - Continuous cardiac monitoring, will consider Holter monitor as outpatient if telemetry here unrevealing - Vitals, Neurochecks, NIHSS per unit routine - BP parameters: SBP CAP 180, restart home anti-hypertensives - Obtain repeat CTH today (07/24/20, ordered) - Complete ischemic stroke workup with TTE without bubble - Consult speech, PT, OT for supportive management - Will halfway house counselor concerning stroke education, smoking cessation, healthy diet, physical activity, weight loss - Follow up with PCP for assistance with outpatient goals (BP <130/80, LDL <70, A1c <7) - Follow up in neurology clinic in 2-4 weeks (with MARYLIN Jernigan; will likely need to move upcoming appt) Secondary Stroke Prevention: - Antiplatelet: ASA 81mg po daily/Brilinta 90mg bid - Anticoagulation: Not indicated at this time - Statin: continue home pravastatin 20mg daily HTN: - BP parameters, as above - Restart home medications with goal of lowering BP to normotension over next 3- 4 days FEN/GI: - Diet: Beside dysphagia to clear patient for PO meds/Cardiac HH diet - Monitor lytes and replete PRN Glucose Control: - Sliding scale insulin and accuchecks per primary team to avoid hyperglycemia Thank you for this interesting consult. Plan of care was discussed with primary team. Please call with any questions. History of Present Illness Attending Physician: Leyla España MD History of Present Illness Shaan Abad is an 84 yo man w/ PMH of TIA on plavix, DM, HTN, CKD II, HLD, gout, CAD s/p CABG with prosthetic aortic valve, chronic gait dysfunction, GERMAN and osteoporosis who p/t [facility] with acute onset of LUE weakness. [employer]DER ~5pm on 07/22/20. In the ED, he as afebrile, BP 156/89, HR 79, RR 16, satting 97% on room air. Labs notable for WBC 6.58, Hb 15.7, Plts 157, Na/K WNL, Cr 1.04, glucose 179, INR 1.3, Ca/Mg WNL, LFTs WNL, troponin negative. Imaging independently reviewed. CT head shows no hemorrhage or hypodensity, moderate generalized atrophy with ex vacuo dilation, moderate SVID. CTA head and neck showed diffuse intracranial atherosclerosis with stable left M2/M3 high-grade stenosis as compared to CTA head from 05/03/2020 (likely due to intracranial atherosclerosis). We will to obtain MRI brain due to pacemaker. On examination, he reports that he was in his normal state of health until Wednesday when he noticed acute onset of LUE weakness. Denies any numbness, vision changes or speech abnormalities. Notes that he has been taking aspirin only due to the side effect that he had with Plavix. Continues to have difficulty with moving the left upper extremity and reports it is mainly due to weakness. Stroke Workflow: CT ASPECT: 10 Time IV tpa is given: NA tPA bolus: NA tPA dose: NA If tpa not given, why not: outside time window If delay >60min after hospital arrival, why: n/a If no IA therapy, why not: No LVO on CTA Patient Features: Admission NIHSS: Admission Modified [place] Scale: 1-2 Time patient last seen well: 5pm on 07/22/20 Wake up stroke: No Intubation status: Not intubated Stroke Risk Factors: Hypertension: Y Hyperlipidemia: Y Atrial Fib:N Tobacco: Y Diabetes: Y Taking NOAC or warfarin: N Allergies Allergy/AdvReac Type Severity Reaction Status Date / Time No Known Drug Allergies Allergy Unknown Verified 07/23/20 14:05 Home Medications Medication Instructions Recorded Confirmed Type PreserVision AREDS 2 tab PO BID 03/31/18 07/23/20 History ascorbic acid (vitamin C) [Vitamin 500 mg PO QAM 03/31/18 07/23/20 History C] metoprolol tartrate 12.5 mg PO BID 03/31/18 07/23/20 History insulin glargine 100 unit/mL (3 40 units SQ HS box 08/14/19 07/23/20 History mL) subcutaneous pen OneTouch Verio test strips #500 ea NS 11/07/19 07/23/20 Rx allopurinol 100 mg tablet 100 mg PO BID #180 tab 11/07/19 07/23/20 Rx aspirin 81 mg tablet,delayed 81 mg PO BID tab 12/08/19 07/23/20 History release icosapent ethyl 1 gram capsule 2 gm PO BID #360 cap 12/14/19 07/23/20 Rx lancets 30 gauge #500 ea 01/31/20 07/23/20 Rx pen needle, diabetic 32 gauge x #450 ea 01/31/20 07/23/20 Rx 5/32" pravastatin 20 mg tablet 20 mg PO QPM 06/03/20 07/23/20 History ramipril 5 mg capsule 5 mg PO BID #180 cap 06/03/20 07/23/20 Rx insulin lispro 100 unit/mL 45 unit SUBCUT DAILY ml 07/11/20 07/23/20 History subcutaneous pen calcitriol 0.25 mcg PO QAM 07/23/20 07/23/20 History metformin 425 mg PO BID 07/23/20 07/23/20 History multivitamin 1 tab PO QAM 07/23/20 07/23/20 History Patient History Medical History (Updated 07/24/20 @ 12:45 by Zhanna Vee MD) Actinic keratosis Chronic kidney disease, stage II (mild) Former smoker Gout, joint History of prostate cancer Hypertension Intermittent headache Leg weakness, bilateral Obesity Psoriasis Third degree AV block Unsteady gait Vitamin D deficiency Surgical History Aortic valve replaced History of cataract surgery History of hand surgery S/P coronary artery bypass graft x 2 Family History Brother Myocardial infarction Diabetes Sister Diabetes Mother Diabetes Father Stroke Other Nephrolithiasis Denies family history of Ovarian cancer Prostate cancer Breast cancer Colorectal cancer Social History Smoking Status: Former smoker Tobacco Type: Pipe and Cigars Hx Alcohol Use: No Hx Substance Use: No Preferred Language: Urdu Communication Ability: Effective Visual Impairment: No Limitations Hearing Ability: Use of Hearing Aid Partner Management Consultant Required: No Beliefs That Will Affect Care: None marital status: Current Living Situation: Spouse current occupational status: retired Other Information That Helps Us Care for You: No Feels Safe at Home: Yes Safety Concerns: Feels Safe At This Time Childhood Exposure to Second-Hand Smoke: No caffeine: Yes Dental Care, Regularly: Yes Physical Activity Frequency: 5-6 Times per Week Seatbelt Use: always Sunscreen Use: Yes Assistive Devices: CPAP Review of Systems Review of Systems: 14 point review of systems completed and negative except as in HPI. Exam (Neuro) Physical Exam: General Exam: GEN: NAD, sitting down in examination bed. HEENT: No conjunctival injection, no rhinorrhea. CV: RRR on monitor PULM: Nonlabored respirations on room air. Neuro Exam: MS: Awake and Alert. Oriented to person, place, and date. Speech fluent and appropriate without dysarthria or paraphasic errors. Language intact including naming, comprehension, repetition. Cognition and memory grossly intact. Attention intact. No neglect. CN: Visual ricci full, + blink to threat bilaterally. No extinction to double simultaneous stimuli. Unable to visualize fundi on fundoscopic exam. PERRLA OU. EOMI without nystagmus. Facial sensation intact to LT. Left facial droop. Hearing intact to conversation. Uvula midline with symmetric palatal elevation. Shoulder shrug normal. Tongue midline. MOTOR: Normal bulk and tone. No pronator drift. RUE strength 5/5 at deltoids, biceps, triceps, wrist flexors and extensors, and finger flexors. LUE strength 4-/5 at deltoids, biceps, triceps, wrist flexors and extensors, and 4/5 finger flexors. BLE strength 5/5 at iliopsoas, hamstrings, quadriceps, tibialis anterior, and gastrocnemius bilaterally. REFLEXES: 1+ at biceps, triceps, brachioradialis, trace patella, and absent Achilles bilaterally. Flexor plantar responses bilaterally. SENSORY: Intact to LT/vibration/temperature throughout, no extinction to double simultaneous stimuli. COORDINATION: +dysmetria on [id number] in the LUE. GAIT: Deferred due to physical status. NIH STROKE SCALE 1A. Level of Consciousness (0-3) = 0 1B. LOC Questions (0-2) = 0 1C. LOC Commands (0-2) = 0 2. Best Horizontal Gaze (0-2) = 0 3. Visual Ricci (0-3) = 0 4. Facial Palsy (0-3) = 1 5. Motor Arm Right (0-4) = 0 Left (0-4) = 0 6. Motor Leg Right (0-4) = 0 Left (0-4) = 0 7. Limb Ataxia (0-2) = 1 8. Sensory (0-2) = 0 9. Best Language (0-3) = 0 10. Dysarthria (0-2) = 0 11. Extinction and Inattention (0-2) = 0 NIHSS TOTAL = 2 Results & Data ([facility]) Vital Signs (Past 12 Hours) Vital Signs Temp Pulse Pulse Resp BP Pulse Ox 07/24/20 08:00 67 07/24/20 07:34 36.9 C 65 20 123/72 92 07/24/20 04:20 66 07/24/20 03:44 36.3 C L 67 20 137/67 92 07/24/20 00:26 62 15 93 07/23/20 23:22 36.6 C 67 16 128/73 94 PG Care Time/CCT Total # of Minutes Spent Total Time Spent with Patient: Total time spent is greater than 50% in coordination of care (as documented) at patient's floor/unit and/or counseling patient: Coding Level of Care Code 59850 Initial Inpt Care Lvl 3 Diagnoses Diabetic peripheral neuropathy associated with type 2 diabetes mellitus E11.42 Diabetic nephropathy associated with type 2 diabetes mellitus E11.21 Dyslipidemia E78.5 Hypertension I10 Aortic valve replaced Z95.2 Lacunar stroke I63.81
--- NOTE | 2020-07-24 14:17 | CT Scan Report ---
CT SCAN OF THE BRAIN WITHOUT IV CONTRAST CLINICAL HISTORY: Strokelike symptoms. COMPARISON STUDY: CT of the brain dated 07/23/2020. TECHNIQUE: Unenhanced axial CT scan of the brain is performed from the vertex to the skull base. A do se lowering technique was utilized adhering to the principles of ALARA. CT DOSE: 537.48 mGy.cm FINDINGS: Brain parenchyma: There are age-related involutional changes noting mild to moderate subcortical and periventricular microangiopathic change. There is no hemorrhage, mass effect, or evidence of acute t erritorial ischemia by CT criteria. [place]uesada-white matter differentiation is preserved. No extra-axial fl uid collection is seen. Ventricles, sulci, cisterns: Prominent secondary to involutional change. Intracranial vasculature: There is atherosclerotic calcification of the cavernous carotid and vertebr al arteries. Calvarium: Unremarkable. Sinuses and mastoids: The visualized paranasal sinuses are clear. The mastoid air cells are well pneu matized. Orbits: The bony orbits are grossly intact. There are bilateral ocular lens implants. IMPRESSION: There is no hemorrhage, mass effect, or evidence of acute territorial ischemia by CT nithya haley. ACT 112: Negative or not required by law. Electronically signed by: Ronaldo Cunningham M.D. 07/24/2020 2:16 PM
[2020-07-24] MEDS ORDERED: INSULIN GLARGINE SOLOSTAR 100 UNITS/ML 3 ML PEN SC SCH (21:00)
[2020-07-24] MEDS ORDERED: lisinopril 5 MG TAB PO SCH (21:00)
[2020-07-24] MEDS: METOPROLOL TARTRATE 25 MG TAB PO SCH (21:03)
[2020-07-24] MEDS: PRAVASTATIN SOD 40 MG TAB PO SCH (21:07)
[2020-07-25] MEDS: SODIUM CHLORIDE 0.9% 1000ML 1,000 ML IV SCH (02:20)
[2020-07-25 06:52] LABS: Eosinophils # (auto) 0.06 K/uL (0-0.5); Eosinophils % (auto) 1.2 %; Hematocrit (blood only) 41.6 % (42-52); Hemoglobin 14.3 g/dL (14.0-18.0); Immature Granulocytes # (auto) 0.01 K/uL (0.00-0.02); Immature Granulocytes % (auto) 0.2 %; Lymphocytes # (auto) 1.21 K/uL (1.2-3.4); Lymphocytes % (auto) 25.1 %; Mean Corpuscular Hemoglobin 32.5 pg (25-34); Mean Corpuscular Hgb Conc 34.4 g/dL (32-36); Mean Corpuscular Volume 94.5 fL (80-100); Mean Platelet Volume 9.8 fL (7.4-10.4); Monocytes # (auto) 0.61 K/uL (0.11-0.59); Monocytes % (auto) 12.7 %; Neutrophils # (auto) 2.93 K/uL (1.4-6.5); Neutrophils % (auto) 60.8 %; Platelet Count 159 K/uL (130-400); RDW Coefficient of Variation 13.1 % (11.5-14.5); RDW Standard Deviation 45.5 fL (36.4-46.3); White Blood Count 4.82 K/uL (4.8-10.8)
[2020-07-25 06:59] LABS: BUN Creatinine Ratio 17.2 (10-20); Calcium 8.4 mg/dl (8.5-10.1); Creatinine Clr Calc Pharmacy 52.9 ml/min; Est GFR (African American) 90.6; Est GFR (Non-African American) 78.2; Magnesium 2.1 mg/dl (1.8-2.4); Potassium 3.8 mmol/L (3.5-5.1)
[2020-07-25] MEDS: INSULIN ASPART 100 UNITS/ML 3 ML PEN SC SCH ×2 (08:17→12:03)
[2020-07-25] MEDS: METOPROLOL TARTRATE 25 MG TAB PO SCH (08:23)
[2020-07-25] MEDS: CALCITRIOL 0.25 MCG CAPSULE PO SCH (08:24)
[2020-07-25] MEDS: allopurinoL 100 MG TAB PO SCH (08:24)
[2020-07-25] MEDS: MULTIVITAMIN TAB PO SCH (08:24)
[2020-07-25] MEDS: CLOPIDOGREL BISULFATE 75 MG TAB PO SCH (08:24)
[2020-07-25] MEDS: ASCORBIC ACID 500 MG TAB PO SCH (08:24)
[2020-07-25] MEDS ORDERED: lisinopril 10 MG TAB PO SCH (09:00)
[2020-07-25] MEDS: ASPIRIN 81 MG ECTAB PO SCH (09:35)
--- NOTE | 2020-07-25 12:50 | Discharge Summary ---
Date of Service July 25, 2020 Admission HPI Per Admitting Provider Mr. Abad is an 84 year old male with a history of Insulin Requiring Type 2 Diabetes Mellitus, Hypertension, Dyslipidemia, Diabetic Nephropathy(CKD), Diabetic Neuropathy, CAD s/p CABG x 2 Vessels (NORRIS to LAD, SVG to PDA 04/2017), Aortic Stenosis s/p Lakisha Zhang #23 Bioprosthetic AVR ([facility] 04/2017), Obstructive Sleep Apnea, Prior TIA May 2020, Complete Heart Block s/p Medtronic Dual Chamber Pacemaker (he is on his second generator), Prostate Cancer, Osteoporosis, and Cerebrovascular Disease who presented to [facility] ER today for Left Arm Weakness and Uncoordinated Movements since yesterday afternoon at 5 p.m. (>21 hours ago). He contacted his Customer Experience Manager and friend Dr Reaves who advised the patient to seek immediate medical attention. He was watching TV yesterday at 5 p.m. when he noticed that his left arm and hand felt odd, and his hand and arm were and are not "doing what he tells them to do". His left hand movements are clumsy and he cannot grasp objects with his left hand because it's too weak. Patient denies any left leg weakness, facial droop, slurred speech, difficulty swallowing, or any visual disturbance. He specifically denies any blind spots, black spots, amaurosis fugax, loss of visual cyr, or double vision. He denies any urinary or fecal incontinence. He has otherwise been feeling well, and denies any recent illnesses, fevers, chills, cough, dyspnea, or headache. He denies neck injuries or recent falls. He walks approximately 1 to 1.5 miles daily with his . His exertional tolerance is stable and he has not had any limiting cardiopulmonary symptoms. He denies any palpitations or any history of atrial fibrillation or atrial flutter. He denies any history of endocarditis. [facility] His PCP is Dr. Jose Betts. Principal Diagnosis lacunar stroke Discharge Exam Constitutional well developed and well nourished; no acute distress Eyes PERRL, conjunctivae normal, anicteric sclerae ENMT Mouth: oral mucous membranes not dry Respiratory normal respiratory effort; no respiratory distress and no labored breathing Auscultation: lungs clear to auscultation bilaterally; no crackles, no rales, no rhonchi and no wheezes Cardiovascular Rate/Rhythm: regular rate and regular rhythm Heart Sounds: no murmur and no cardiac rub Vessels: normal peripheral pulses and radial pulses present; no JVD Extremities: no edema Gastrointestinal (Abdomen) Inspection/Auscultation: abdomen normal to inspection and normal bowel sounds; abdomen not distended Percussion/Palpation: abdomen soft; abdomen nontender, no guarding, abdomen not rigid and no hepatosplenomegaly Musculoskeletal Head/Neck/Chest: normocephalic and head atraumatic Spine: no cervical spinal tenderness, no cervical muscular tenderness, no thoracic spinal tenderness and no lumbar spinal tenderness Skin no rashes, warm and dry Neurologic CN's II-XI intact bilaterally, moves all extremities and + focal motor deficit (left hand weakness, weakness with extension and flexion of left arm) Motor/Sensory: no tremor and no sensory deficit Psychiatric Orientation: alert, oriented to person, oriented to place and oriented to time Apperance: appropriately groomed; not disheveled Affect: euthymic affect; no anxious affect and no tearful affect Discharge Data Allergies Allergy/AdvReac Type Severity Reaction Status Date / Time No Known Drug Allergies Allergy Unknown Verified 07/23/20 14:05 Consultations 07/23/20 13:03 ED Decision to Admit Stat 07/23/20 19:22 Consult Case Management - Discharge Planning Routine Consult Neurology Routine Ordered Studies 07/23/20 11:15 CT head/brain wo con Stat 07/23/20 11:34 CT angio head w con Stat CT angio neck with con Stat 07/24/20 12:49 CT head/brain wo con Routine Hospital Course (1) Cerebrovascular accident (CVA): 1-19 left arm symptoms 2' to lacunar infarct unable to perform MRI due to pacemaker aspirin, plavix started Neuro consulted patient outside window for thrombolytics Echo checked: no LV thrombus, no shunt, moderate LVH, EF 60-65%, grade 1 diastolic dysfunction, normal gradient across aortic valve, mild TR goal SBP < 130 per neuro -20 repeat HCT without acute process interrogated pacemaker -- no afib PT, OT and ST saw patient needs continued OT which is going to be set up for him as outpatient 07-[address] Vee continue aspirin and plavix for 21 days after 21 days, stop aspirin and continue plavix alone F/U neuro in 2-4 weeks (Yolanda COULTER) will need F/U with PCP for maintaining BP < 130/80, LDL < 70 and A1c < 7 (2) Hypertension: initially keep SBP < 180 1-20 we are currently at goal SBP < 180, currently SBP 147 gradually lower BP towards goal SBP < 130 will resume toprol 12.5mg BID today patient's other home BP med is ramipril 5mg BID which is max dose ramipril is nonformulary, so if SBP remains > 130 tomorrow, will add STEFANI 1-21 added lisinopril 10mg, BP acceptable will discharge home on metoprolol and ramipril regimen (3) Diabetes type 2, controlled: lantus 30 units metformin on hold glycemic management (4) Dyslipidemia: pravastatin increased to 40 (5) S/P CABG (coronary artery bypass graft): (6) Aortic valve replaced: (7) Gout: Total Time Total Time Spent Total Time Spent (In Minutes): 40 minutes Total Time Includes: Examination of the Patient, Discharge Planning, Medication Reconciliation and Communication With Other Providers Discharge Plan Discharge Items Patient Disposition: Home - Self-Care Reason For Visit: CVA Discharge Diagnosis: lacunar stroke diabetes type 2 hypertension diabetic neuropathy and nephropathy Condition on Discharge: Good Activity: Resume your previous activity Non-emergency contact: Primary Care Provider Call non-emergency contact if: you have any medication questions Follow-up/Referrals: Jose Betts MD [Primary Care Provider] - (within one week) Diet: Carb Consistent or DM2, Heart Healthy and Low Sodium (2gm) Addtl Attending Provider Instructions: Start taking aspirin 81mg daily and plavix 75mg daily After 21 days, stop taking the aspirin, but continue taking the plavix indefinitely Continue to monitor your blood pressure, with a goal systolic less than 130. Continue your insulin regimen as before this hospitalization -- no changes were made to your insulin doses Continue to work with occupational therapy to improve left arm weakness Follow up with neurology Yolanda Romero within 2 to 4 weeks Follow up with your primary care physician within 1 week Addtl Household Appliances Service Technician Provider Instructions: Risk Factors for Stroke: You can reduce your chances of stroke by working with your medical provider to adopt a healthy lifestyle. Some specific ways to lower your chance of stroke are: * If you are a smoker, now is the time to stop smoking cigarettes * If you are diabetic, improve the control of your blood sugars * Avoid excessive amounts of alcohol * Control high blood pressure * Lose weight if you are overweight * Be sure to lead an active lifestyle * Eat a healthy diet low in salt, cholesterol and fat You should know about other risk factors for stroke that you are unable to control. These include: * Age 55 years or older * Male gender * Certain racial groups: , or / * Family History of Stroke, Mini stroke or Heart Attack * Sickle Cell Disease Follow Up: It is important for you to keep your follow up appointments with your medical provider. Who to Call and When: Medical Emergencies: Call 911 immediately if you experience any of the following warning signs and symptoms of Stroke: * Sudden numbness or weakness of the face, arm or leg, especially on one side of the body * Sudden confusion, trouble speaking or understanding * Sudden trouble seeing in one or both eyes * Sudden trouble walking, dizziness, loss of balance or coordination * Sudden severe headache with no cause Do not delay calling 911 if you experience any warning signs or symptoms of a stroke. Delay in seeking medical attention may affect what treatments can be given to you. . Pending Studies at Discharge: No Stand-Alone Forms: [facility] [employer], Smoking Cessation Medications and DC Order Prescriptions: New pravastatin 40 mg Tablet 40 mg PO HS Qty: 30 RF: 1 clopidogrel 75 mg Tablet 75 mg PO QAM Qty: 30 RF: 1 aspirin 81 mg Tablet,Delayed Release (Dr/Ec) 81 mg PO DAILY Qty: 21 RF: 0 Continued allopurinol 100 mg tablet 100 mg PO BID Qty: 180 RF: 3 (DME) blood sugar diagnostic [Baby World LanguageTouch Verio test strips] Strip See Rx Instructions .ROUTE .MEDSUPPLY Qty: 500 RF: 1 Vascepa 1 gram capsule 2 gm PO BID Qty: 360 RF: 3 (DME) pen needle, diabetic [BD Ultra-Fine Silva Pen Needle] 32 gauge x 5/32" needle See Dose Instructions .ROUTE .MEDSUPPLY Qty: 450 RF: 3 (DME) lancets [OneTouch Delica Plus Lancet] 30 gauge misc See Rx Instructions .ROUTE .MEDSUPPLY Qty: 500 RF: 3 ramipril [Altace] 5 mg capsule 5 mg PO BID Qty: 180 RF: 3 Lantus Solostar U-100 Insulin 100 unit/mL (3 mL) insulin pen 40 units SQ HS RF: 0 ascorbic acid (vitamin C) [Vitamin C] 500 mg Tablet 500 mg PO QAM RF: 0 metoprolol tartrate 25 mg Tablet 12.5 mg PO BID RF: 0 PreserVision AREDS [id number] Tablet 2 tab PO BID RF: 0 insulin lispro [Humalog KwikPen Insulin] 100 unit/mL insulin pen 45 unit SUBCUT DAILY RF: 0 multivitamin Tablet 1 tab PO QAM RF: 0 metformin 850 mg tablet 425 mg PO BID RF: 0 calcitriol 0.25 mcg capsule 0.25 mcg PO QAM RF: 0 Discontinued pravastatin [Pravachol] 20 mg tablet 20 mg PO QPM RF: 0 aspirin 81 mg tablet,delayed release (DR/EC) 81 mg PO BID RF: 0 Discharge Orders: Discharge Order (Routine); Ordered 07/25/20 Ordered By: Leyla España Admission Data Admit Date/Time: 07/23/20 15:04 Attending Provider: Leyla España Admit Provider: Jaime Stanley Primary Care Provider: Jose Betts Other Providers: Cecil Pena ; Harrison Palacios ; Maxime Corrigan Christina R. ; Sharron Romero Coding Level of Care Code D/C Day Management >30 mins Diagnoses Cerebrovascular accident (CVA) I63.511 CVA mechanism: stenosis Laterality of affected vessel: right Precerebral and cerebral artery: middle cerebral artery Hypertension I10 Hypertension type: essential hypertension Diabetes type 2, controlled E11.9 Diabetes mellitus complication status: without complication Diabetes mellitus intermediate manager insulin use: unspecified mcc insulin use status Dyslipidemia E78.5 S/P CABG (coronary artery bypass graft) Z95.1 Aortic valve replaced Z95.2 Gout M10.9
--- NOTE | 2020-07-25 12:54 | Pharmacy Report ---
Pharmacy Glycemic Short Note 2 - Date of Service July 25, 2020 - Glycemic Short BSG Results (Last 24 hours): 07/24/20 07/24/20 07/25/20 16:37 20:33 06:01 Glucose 80 POC Glucose 126 H 169 H 07/25/20 07/25/20 07:34 11:42 Glucose POC Glucose 109 H 98 OUTPATIENT ANTIDIABETIC REGIMEN: * Lantus 34-40 units SQ qHS * Humalog TID with meals * Carb ratio 1:5 with breakfast and lunch * Carb ratio 1:4 with dinner * HbA1c: 7.1% (07/11/20) ASSESSMENT: * Mr Abad received 49 units of insulin yesterday, with BSGs ranging from 92- 169mg/dL. * 30 units of basal insulin * 19 units of prandial/correctional insulin * Lantus dose will be reduced slightly this evening, as fasting BSG was below goal this morning. * Otherwise, BSGs have been well-controlled throughout the day. No further changes at this time. PLAN FOR INPATIENT GLYCEMIC CONTROL: * Basal insulin * Lantus 25 units SQ qHS * Bolus insulin * NovoLog per scale ACHS or Q6hrs while NPO * Goal Range: Low 110 mg/dL - High 150 mg/dL * Correction Factor: 25 mg/dL/unit * Nutritional / Prandial insulin per carb ratio of 1 unit per 5 grams CHO consumed PLAN FOR DISCHARGE: * A1c: 7.1% * This indicates excellent glycemic control as an outpt, for an 84yo patient with comorbidities. It is perhaps even a bit lower than it needs to be. * Expect that patient may resume home regimen if he does not report having episodes of hypoglycemia at home. If he is occasionally hypoglycemic, would recommend reducing Lantus dose and/or loosening carb coverage slightly.
[2020-07-25] MEDS ORDERED: STROKE PATIENT DISCHARGE STA (12:55)
--- NOTE | 2020-07-25 13:33 | Pharmacy Report ---
Pharmacist Stroke Counseling - Date of Service July 25, 2020 - Scope: Pharmacy has been consulted to provide medication discharge counseling for this patient admitted with ischemic stroke as per the Pharmacist Discharge Counseling for Stroke Patients Protocol. - Medications on Discharge: Home Medications Medication Instructions Recorded Confirmed PreserVision AREDS 2 tab PO BID 03/31/18 07/23/20 ascorbic acid (vitamin C) [Vitamin 500 mg PO QAM 03/31/18 07/23/20 C] metoprolol tartrate 12.5 mg PO BID 03/31/18 07/23/20 insulin glargine 100 unit/mL (3 40 units SQ HS box 08/14/19 07/23/20 mL) subcutaneous pen insulin lispro 100 unit/mL 45 unit SUBCUT DAILY ml 07/11/20 07/23/20 subcutaneous pen calcitriol 0.25 mcg PO QAM 07/23/20 07/23/20 metformin 425 mg PO BID 07/23/20 07/23/20 multivitamin 1 tab PO QAM 07/23/20 07/23/20 New Rx's Medication Instructions Recorded OneTouch Verio test strips #500 ea NS 11/07/19 allopurinol 100 mg tablet 100 mg PO BID #180 tab 11/07/19 icosapent ethyl 1 gram capsule 2 gm PO BID #360 cap 12/14/19 lancets 30 gauge #500 ea 01/31/20 pen needle, diabetic 32 gauge x #450 ea 01/31/20 5/32" ramipril 5 mg capsule 5 mg PO BID #180 cap 06/03/20 aspirin 81 mg PO DAILY #21 tab 07/25/20 clopidogrel 75 mg PO QAM #30 tab 07/25/20 pravastatin 40 mg PO HS #30 tab 07/25/20 - Action: The above medications, specifically ones for stroke treatment/prophylaxis, have been reviewed in detail with the patient and/or patient fraud representative(s) prior to discharge. This includes indication, common adverse reactions, drug interactions, and medication administration. Medication counseling has been employed using the teach-back method to ensure understanding. - Outcome: The patient and/or patient fraud representative(s) have demonstrated understanding of the medications. Additional comments: Spoke over the phone with patient today. Reviewed new medications to prevent stroke including Aspirin and Plavix. Discussed why they are being used and common side effects in great detail. Reviewed how to use the medications, what to do if doses are missed, common drug interactions, common side effects, what to watch out for while using the medications, and how to store the medications. Pt verbalized understanding and restated the katz points of each medication. Pt's son is a farm adviser and he said that his son has already discussed these medications with him in great detail. Thank you for allowing pharmacy to be involved in the care of this patient. Please call [phone] with any additional questions
[2020-07-25] MEDS ORDERED: LOPERAMIDE HCL 2 MG CAP PO STA (13:48)
[2020-07-25] MEDS ORDERED: INSULIN GLARGINE SOLOSTAR 100 UNITS/ML 3 ML PEN SC SCH (21:00)
== END 2020-07-25 14:38 | disposition home or self-care (01) ==
LOC: ED 11:08 → 2N 11:08 → SUATTDRO 15:04 → 2N 18:13

== ENCOUNTER 2020-10-08 18:33 | Observation (INO) ==
--- NOTE | 2020-10-08 18:57 | Emergency Department Note ---
Impression & Plan TIA (transient ischemic attack), Hypomagnesemia, Abnormal albumin ED Provider Note NAME: RAJ MCDANIEL AGE: 85 SEX: M : 1935 ARRIVES VIA: Walk-In INFORMANT: Patient, ED PROVIDER(S): Rey Ackerman DO CHIEF COMPLAINT: Slurred speech HPI: Patient is an 85-year-old male with a past medical history CVAs, TIA, aortic valve replacement, CABG and diabetes as well as hypertension CKD the presents the ER for slurred speech. This started about an hour just prior to arrival. He takes Plavix. It resolved just prior to arriving to the hospital. He denies any headache or change in vision. No chest pain or shortness of breath. No nausea vomiting or diarrhea. No weakness or numbness in the arms or legs. confirms that his slurred speech is now resolved. Nobody noticed any facial droop. No other exacerbating or remitting factors. ROS: See above HPI for pertinent positives & negatives. A total of 10 systems reviewed and were otherwise negative. PAST MEDICAL HISTORY:See Below PAST SURGICAL HISTORY:See Below FAMILY HISTORY:See Below SOCIAL HISTORY:See Below HOME MEDICATIONS:See Below ALLERGIES:See Below VITALS:See Below PHYSICAL EXAMINATION: GENERAL: Sitting up in bed, alert, well appearing, well nourished, no distress, non-toxic EYE EXAM: normal conjunctiva. PERRL and EOM's intact. OROPHARYNX: no exudate, no erythema, lips, buccal mucosa, and tongue normal and mucous membranes are moist NECK: supple, no nuchal rigidity, no adenopathy, non-tender LUNGS: Clear to auscultation. Normal chest wall mechanics HEART: no murmurs, S1 normal and S2 normal ABDOMEN: abdomen soft, non-tender, normo-active bowel sounds, no masses, no rebound or guarding. BACK: Back is symmetrical on inspection and there is no deformity, no midline tenderness, no CVA tenderness. SKIN: no rashes and no bruising UPPER EXTREMITIES: upper extremities are grossly normal. LOWER EXTREMITIES: No pitting edema. NEURO EXAM: Normal sensorium, cranial nerves II-XII intact, normal speech, no weakness of arms, no weakness of legs. No drift. Finger to nose intact. Gross sensation intact. MEDICAL DECISION MAKING: Patient is an 85-year-old male who presents the ER for slurred speech which resolved upon presentation. IV was established blood was obtained. Labs show no significant leukocytosis or anemia. INR was unremarkable at 1.4. BMP with a mild hypomagnesium at 1.7. LFTs bilirubin troponin were negative. UA was clean. Covid was negative. Patient is on Plavix. CT as well as CT angios of the head and neck are unchanged from previous. Patient was updated bedside and discussed with hospitalist for further evaluation. Triage Nursing notes reviewed. Limited review of prior medical records performed Vital Signs: reviewed and remarkable for no significant abnormalities Differential diagnosis: Differential Diagnosis includes but is not limited to ischemic Stroke, hem orrhagic stroke, bells palsy, mass, neoplasm, migraine headache, seizure, subarachnoid hemorrhage, TIA, and transient global amnesia. ER treatment provided: See below Diagnostics interpreted by me: ECG: Paced rhythm rate of 61 Left axis QTC 477 No PVCs Cardiac Monitoring: An order was placed for continuous cardiac monitoring. The monitor shows a rate of 65 with sinus rhythm. Laboratory studies: As stated above and show below. Imaging studies: See below Consultation(s): Discussed with hospitalist for further evaluation Procedures: none Critical Care: None Past Med/Surg History Medical History (Updated 10/08/20 @ 23:29 by Rey Ackerman DO) Actinic keratosis Chronic kidney disease, stage II (mild) Former smoker Gout, joint History of prostate cancer Hypertension Intermittent headache Leg weakness, bilateral Obesity Psoriasis Third degree AV block Unsteady gait Vitamin D deficiency Surgical History Aortic valve replaced History of cataract surgery History of hand surgery S/P coronary artery bypass graft x 2 Family History Brother Myocardial infarction Diabetes Sister Diabetes Mother Diabetes Father Stroke Other Nephrolithiasis Denies family history of Ovarian cancer Prostate cancer Breast cancer Colorectal cancer Social History Smoking Status: Never smoker Tobacco Type: Pipe and Cigars Hx Alcohol Use: No Hx Substance Use: No Preferred Language: Turkish Communication Ability: Effective Visual Impairment: No Limitations Hearing Ability: Use of Hearing Aid Administration Professional Required: No Beliefs That Will Affect Care: None marital status: Current Living Situation: Spouse current occupational status: retired Feels Safe at Home: Yes Childhood Exposure to Second-Hand Smoke: No caffeine: Yes Dental Care, Regularly: Yes Physical Activity Frequency: 5-6 Times per Week Seatbelt Use: always Sunscreen Use: Yes Assistive Devices: Glasses Allergies Allergies Allergy/AdvReac Type Severity Reaction Status Date / Time No Known Allergies Allergy Verified 10/08/20 19:55 Home Meds Home Medications Medication Instructions Recorded Confirmed PreserVision AREDS 2 tab PO BID 03/31/18 10/08/20 ascorbic acid (vitamin C) [Vitamin 500 mg PO QAM 03/31/18 10/08/20 C] metoprolol tartrate 12.5 mg PO BID 03/31/18 10/08/20 insulin glargine 100 unit/mL (3 0 units SQ HS box 08/14/19 10/08/20 mL) subcutaneous pen insulin lispro 100 unit/mL 0 unit SUBCUT DAILY ml 07/11/20 10/08/20 subcutaneous pen calcitriol 0.25 mcg PO QAM 07/23/20 10/08/20 metformin 425 mg PO BID 07/23/20 10/08/20 multivitamin 1 tab PO QAM 07/23/20 10/08/20 Previous Rx's Medication Instructions Recorded OneTouch Verio test strips #500 ea NS 11/07/19 allopurinol 100 mg tablet 100 mg PO BID #180 tab 11/07/19 icosapent ethyl 1 gram capsule 2 gm PO BID #360 cap 12/14/19 lancets 30 gauge #500 ea 01/31/20 pen needle, diabetic 32 gauge x #450 ea 01/31/20 532" ramipril 5 mg capsule 5 mg PO BID #180 cap 06/03/20 pravastatin 40 mg PO HS #30 tab 07/25/20 clopidogrel 75 mg tablet 75 mg PO QAM 90 Days #90 tab 08/21/20 Results & Data (ED) Vital Signs Vital Signs - 24 hr 10/08/20 18:39 10/08/20 19:36 10/08/20 20:10 Pulse Rate 68 Pulse Rate [Apical] 60 68 Respiratory Rate 18 18 16 Respiratory Effort / Characteristics Non-Labored Respiratory Depth Normal Blood Pressure 117/76 Blood Pressure [Right Arm] 142/86 H 161/92 H Blood Pressure Mean 89 Blood Pressure Mean [Right Arm] 104 115 Pulse Oximetry 99 94 97 Oxygen Delivery Method Room Air Room Air Sepsis Recent Fever Within 48 Hours No Sepsis New/Unexplained Change in Mental Status No Sepsis Action Taken by Nursing No Action Required 10/08/20 21:10 10/08/20 22:32 10/08/20 23:24 Pulse Rate Pulse Rate [Apical] 58 L 63 65 Respiratory Rate 20 20 18 Respiratory Effort / Characteristics Respiratory Depth Blood Pressure Blood Pressure [Right Arm] 181/92 H 131/67 145/70 H Blood Pressure Mean Blood Pressure Mean [Right Arm] 121 88 95 Pulse Oximetry 98 95 95 Oxygen Delivery Method Room Air Room Air Room Air Sepsis Recent Fever Within 48 Hours Sepsis New/Unexplained Change in Mental Status Sepsis Action Taken by Nursing Laboratory Data Result diagrams: 10/08/20 19:07 10/08/20 19:07 Lab Results 10/08/20 10/08/20 10/08/20 Range/Units 19:07 19:07 19:07 WBC 6.24 (4.8-10.8) K/uL RBC 4.07 L (4.7-6.1) M/uL Hgb 13.6 L (14.0-18.0) g/dL Hct 37.9 L (42-52) % MCV 93.1 (80-100) fL MCH 33.4 (25-34) pg MCHC 35.9 (32-36) g/dL RDW Std Deviation 44.7 (36.4-46.3) fL RDW Coeff of Emily 13.1 (11.5-14.5) % Plt Count 151 (130-400) K/uL MPV 9.1 (7.4-10.4) fL Immature Gran % (Auto) 0.5 % Neut % (Auto) 57.9 % Lymph % (Auto) 33.0 % [place] % (Auto) 7.9 % Eos % (Auto) 0.5 % Baso % (Auto) 0.2 % Neut # (Auto) 3.62 (1.4-6.5) K/uL Lymph # (Auto) 2.06 (1.2-3.4) K/uL [place] # (Auto) 0.49 (0.11-0.59) K/uL Eos # (Auto) 0.03 (0-0.5) K/uL Baso # (Auto) 0.01 (0-0.2) K/uL Immature Gran # (Auto) 0.03 H (0.00-0.02) K/uL PT 13.4 H (9.0-12.0) Seconds INR 1.4 H (0.9-1.1) APTT 27.3 (21.0-31.0) Seconds PTT Ratio 1.0 Sodium 138 (136-145) mmol/L Potassium 3.8 (3.5-5.1) mmol/L Chloride 106 (98-107) mmol/L Carbon Dioxide 27 (21-32) mmol/L Anion Gap 5.0 (3-11) BUN 27 H (7-18) mg/dl Creatinine 1.00 (0.6-1.4) mg/dl Est Cr Clr Drug Dosing 54.2 ml/min Est GFR ( Amer) 80.3 Est GFR (Non-Af Amer) 69.3 BUN/Creatinine Ratio 26.6 H (10-20) Glucose 154 H (70-99) mg/dl Calcium 8.0 L (8.5-10.1) mg/dl Magnesium 1.7 L (1.8-2.4) mg/dl Total Bilirubin 0.4 (0.2-1) mg/dl AST 18 (15-37) U/L ALT 31 (12-78) U/L Alkaline Phosphatase 86 (45-117) U/L Troponin I < 0.015 (0-0.045) ng/ml Total Protein 6.3 L (6.4-8.2) gm/dl Albumin 3.1 L (3.4-5.0) gm/dl Globulin 3.2 (2.5-4.0) gm/dl Albumin/Globulin Ratio 1.0 (0.9-2) Urine Color Urine Appearance (Clear) Urine pH (4.5-7.5) Ur Specific Wilmer (1.000-1.030) Urine Protein (Negative) Urine Glucose (UA) (Negative) Urine Ketones (Negative) Urine Blood (Negative) Urine Nitrite (Negative) Urine Bilirubin (Negative) Urine Urobilinogen (Negative) Ur Leukocyte Esterase (Negative) Urine WBC (Auto) (0-5) /hpf Urine RBC (Auto) (0-4) /hpf U Hyaline Cast (Auto) (0-5) /lpf U Epithel Cells (Auto) (0-5) /lpf Urine Bacteria (Auto) (Negative) COVID-19 Eval Order SARS-CoV-2 (PCR) (Negative) Influenza Type A (PCR) (Neg) Influenza Type B (PCR) (Neg) RSV (RT-PCR) (Neg) 10/08/20 10/08/20 10/08/20 Range/Units 19:18 19:18 20:05 WBC (4.8-10.8) K/uL RBC (4.7-6.1) M/uL Hgb (14.0-18.0) g/dL Hct (42-52) % MCV (80-100) fL MCH (25-34) pg MCHC (32-36) g/dL RDW Std Deviation (36.4-46.3) fL RDW Coeff of Emily (11.5-14.5) % Plt Count (130-400) K/uL MPV (7.4-10.4) fL Immature Gran % (Auto) % Neut % (Auto) % Lymph % (Auto) % [place] % (Auto) % Eos % (Auto) % Baso % (Auto) % Neut # (Auto) (1.4-6.5) K/uL Lymph # (Auto) (1.2-3.4) K/uL [place] # (Auto) (0.11-0.59) K/uL Eos # (Auto) (0-0.5) K/uL Baso # (Auto) (0-0.2) K/uL Immature Gran # (Auto) (0.00-0.02) K/uL PT (9.0-12.0) Seconds INR (0.9-1.1) APTT (21.0-31.0) Seconds PTT Ratio Sodium (136-145) mmol/L Potassium (3.5-5.1) mmol/L Chloride (98-107) mmol/L Carbon Dioxide (21-32) mmol/L Anion Gap (3-11) BUN (7-18) mg/dl Creatinine (0.6-1.4) mg/dl Est Cr Clr Drug Dosing ml/min Est GFR ( Amer) Est GFR (Non-Af Amer) BUN/Creatinine Ratio (10-20) Glucose (70-99) mg/dl Calcium (8.5-10.1) mg/dl Magnesium (1.8-2.4) mg/dl Total Bilirubin (0.2-1) mg/dl AST (15-37) U/L ALT (12-78) U/L Alkaline Phosphatase (45-117) U/L Troponin I (0-0.045) ng/ml Total Protein (6.4-8.2) gm/dl Albumin (3.4-5.0) gm/dl Globulin (2.5-4.0) gm/dl Albumin/Globulin Ratio (0.9-2) Urine Color Yellow Urine Appearance Clear (Clear) Urine pH 5.0 (4.5-7.5) Ur Specific Wilmer > 1.045 H (1.000-1.030) Urine Protein Trace H (Negative) Urine Glucose (UA) Negative (Negative) Urine Ketones Negative (Negative) Urine Blood Negative (Negative) Urine Nitrite Negative (Negative) Urine Bilirubin Negative (Negative) Urine Urobilinogen Negative (Negative) Ur Leukocyte Esterase Negative (Negative) Urine WBC (Auto) 0 (0-5) /hpf Urine RBC (Auto) 0-4 (0-4) /hpf U Hyaline Cast (Auto) 0 (0-5) /lpf U Epithel Cells (Auto) 0-5 (0-5) /lpf Urine Bacteria (Auto) Negative (Negative) COVID-19 Eval Order CovFluRsv at [facility] SARS-CoV-2 (PCR) NEGATIVE (Negative) Influenza Type A (PCR) Negative (Neg) Influenza Type B (PCR) Negative (Neg) RSV (RT-PCR) Negative (Neg) Administered Medications Discontinued Medications Ioversol (Optiray 320 125ml) 119 ml IV ONCE ONE Stop: 10/08/20 19:03 Last Admin: 10/08/20 19:02 Dose: 119 ml Documented by: [id number] Imaging Data Radiologist's Impression: Chest X-Ray 10/08/20 18:49 XR chest 1V portable HISTORY: 85 years-old Male Stroke Like Symptoms acute strokelike symptoms COMPARISON: CTA head and neck of same day, chest radiograph 05/03/2020 TECHNIQUE: Portable AP view of the chest FINDINGS: Cardiac silhouette is enlarged. Prior median sternotomy. Calcified plaque of the thoracic aorta. Left subclavian pacer. No pneumothorax, pleural effusion or overt pulmonary edema. Pulmonary vascular congestion. Degenerative changes of the shoulders and spine. IMPRESSION: Cardiomegaly with pulmonary vascular congestion. ACT 112: Negative or not required by law. The above report was generated using voice recognition software. It may contain grammatical, syntax or spelling errors. Electronically signed by: Kamran Diallo M.D. 10/08/2020 7:[address] 10/08/20 18:49 CT head/brain wo con CLINICAL HISTORY: 85 years-old Male with Stroke Like Symptoms. Acute strokelike symptoms TECHNIQUE: Multiple axial CT images of the head were obtained without contrast. A dose lowering technique was utilized adhering to the principles of ALARA. COMPARISON: CTA head and neck of same day, head CT 07/24/2020. FINDINGS: No acute intracranial hemorrhage, midline shift, intracranial mass, hydrocephalus, territorial ischemia or abnormal extra-axial collection. Age- related involutional changes. White matter hypodensities suggest chronic microvascular ischemic disease. Cerebral vascular calcifications. The calvarium is intact. Prior bilateral lens repair. The paranasal sinuses, mastoid air cells, and middle ear cavities are clear. IMPRESSION: No acute intracranial abnormality. ACT 112: Negative or not required by law. The above report was generated using voice recognition software. It may contain grammatical, syntax or spelling errors. Electronically signed by: Kamran Diallo M.D. 10/08/2020 7:07 PM Head CTA 10/08/20 18:49 CT angio neck with con, CT angio head w con CLINICAL HISTORY: 85 years-old Male with Stroke Like Symptoms. Acute strokelike symptoms COMPARISON STUDY: head CT of same day, CTA head and neck 07/23/2020 TECHNIQUE: Following the IV administration of 119 mL of Optiray 320, CT angiogram of the head and neck was performed from the aortic arch to the skull apex. Images are reviewed in the axial, sagittal, and coronal planes. 3-D MIPS images are created and assessed. IV contrast was administered without complication. All measurements were calculated based on NASCET criteria. A dose lowering technique was utilized adhering to the principles of ALARA. CT DOSE: 1078.77 mGy.cm FINDINGS: Atheromatous plaque of the aortic arch. Patency of the innominate and imaged subclavian arteries. Common carotid arteries are patent. Moderate mixed plaque of the carotid bulbs results in less than 50% stenosis. Patent internal carotid arteries. Focal area of high-grade stenosis involving a branch of the right middle cerebral artery distal to the trifurcation, image 104 series 5. The left middle and bilateral anterior cerebral arteries are patent. Mixed plaque at the origin of the left vertebral artery results in at least moderate luminal narrowing. 50% luminal narrowing of the V4 segment right vertebral artery, image 3 level is unchanged. The basilar and posterior cerebral arteries are patent. Cerebral venous sinuses are patent. No abnormal intracranial enhancement. Prior median sternotomy. No pneumothorax. 1.5 cm left thyroid nodule. No adenopathy. Degenerative changes of the spine. IMPRESSION: 1. 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 2. Unchanged 50% luminal narrowing of the V4 segment right vertebral artery. 3. No aneurysm, dissection or arterial occlusion identified. ACT 112: Negative or not required by law. The above report was generated using voice recognition software. It may contain grammatical, syntax or spelling errors. Electronically signed by: Kamran Diallo M.D. 10/08/2020 7:28 PM Neck CTA 10/08/20 18:49 CT angio neck with con, CT angio head w con CLINICAL HISTORY: 85 years-old Male with Stroke Like Symptoms. Acute strokelike symptoms COMPARISON STUDY: head CT of same day, CTA head and neck 07/23/2020 TECHNIQUE: Following the IV administration of 119 mL of Optiray 320, CT angiogram of the head and neck was performed from the aortic arch to the skull apex. Images are reviewed in the axial, sagittal, and coronal planes. 3-D MIPS images are created and assessed. IV contrast was administered without complication. All measurements were calculated based on NASCET criteria. A dose lowering technique was utilized adhering to the principles of ALARA. CT DOSE: 1078.77 mGy.cm FINDINGS: Atheromatous plaque of the aortic arch. Patency of the innominate and imaged subclavian arteries. Common carotid arteries are patent. Moderate mixed plaque of the carotid bulbs results in less than 50% stenosis. Patent internal carotid arteries. Focal area of high-grade stenosis involving a branch of the right middle cerebral artery distal to the trifurcation, image 104 series 5. The left middle and bilateral anterior cerebral arteries are patent. Mixed plaque at the origin of the left vertebral artery results in at least moderate luminal narrowi ng. 50% luminal narrowing of the V4 segment right vertebral artery, image 3 level is unchanged. The basilar and posterior cerebral arteries are patent. Cerebral venous sinuses are patent. No abnormal intracranial enhancement. Prior median sternotomy. No pneumothorax. 1.5 cm left thyroid nodule. No adenopathy. Degenerative changes of the spine. IMPRESSION: 1. 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 2. Unchanged 50% luminal narrowing of the V4 segment right vertebral artery. 3. No aneurysm, dissection or arterial occlusion identified. ACT 112: Negative or not required by law. The above report was generated using voice recognition software. It may contain grammatical, syntax or spelling errors. Electronically signed by: Kamran Diallo M.D. 10/08/2020 7:28 PM Discharge Plan Visit Data Chief Complaint: Stroke/CVA Symptoms Stated Complaint: SLURRED SPEECH ED Provider: Rey Ackerman Discharge Problem: TIA (transient ischemic attack), Hypomagnesemia, Abnormal albumin Forms Stand Alone Forms: [facility] [email or web address] Prescriptions Prescriptions: No Action allopurinol 100 mg tablet 100 mg PO BID Qty: 180 RF: 3 (DME) blood sugar diagnostic [Livesetuch Verio test strips] Strip See Rx Instructions .ROUTE .MEDSUPPLY Qty: 500 RF: 1 Vascepa 1 gram capsule 2 gm PO BID Qty: 360 RF: 3 (DME) pen needle, diabetic [BD Ultra-Fine Silva Pen Needle] 32 gauge x 5/32" needle See Dose Instructions .ROUTE .MEDSUPPLY Qty: 450 RF: 3 (DME) lancets [EnerTech EnvironmentalTouch Delica Plus Lancet] 30 gauge misc See Rx Instructions .ROUTE .MEDSUPPLY Qty: 500 RF: 3 clopidogrel 75 mg tablet 75 mg PO QAM 90 Days Qty: 90 RF: 2 ramipril [Altace] 5 mg capsule 5 mg PO BID Qty: 180 RF: 3 Lantus Solostar U-100 Insulin 100 unit/mL (3 mL) insulin pen 0 units SQ HS RF: 0 ascorbic acid (vitamin C) [Vitamin C] 500 mg Tablet 500 mg PO QAM RF: 0 metoprolol tartrate 25 mg Tablet 12.5 mg PO BID RF: 0 PreserVision AREDS [id number] Tablet 2 tab PO BID RF: 0 insulin lispro [Humalog KwikPen Insulin] 100 unit/mL insulin pen 0 unit SUBCUT DAILY RF: 0 multivitamin Tablet 1 tab PO QAM RF: 0 metformin 850 mg tablet 425 mg PO BID RF: 0 calcitriol 0.25 mcg capsule 0.25 mcg PO QAM RF: 0 pravastatin 40 mg Tablet 40 mg PO HS Qty: 30 RF: 1
[2020-10-08] MEDS ORDERED: OPTIRAY 320 125ml IV ONE (19:02)
--- NOTE | 2020-10-08 19:08 | CT Scan Report ---
CT head/brain wo con CLINICAL HISTORY: 85 years-old Male with Stroke Like Symptoms. Acute strokelike symptoms TECHNIQUE: Multiple axial CT images of the head were obtained without contrast. A dose lowering tech nique was utilized adhering to the principles of ALARA. COMPARISON: CTA head and neck of same day, head CT 07/24/2020. FINDINGS: No acute intracranial hemorrhage, midline shift, intracranial mass, hydrocephalus, territorial ischem ia or abnormal extra-axial collection. Age-related involutional changes. White matter hypodensities s uggest chronic microvascular ischemic disease. Cerebral vascular calcifications. The calvarium is intact. Prior bilateral lens repair. The paranasal sinuses, mastoid air cells, and m iddle ear cavities are clear. IMPRESSION: No acute intracranial abnormality. ACT 112: Negative or not required by law. The above report was generated using voice recognition software. It may contain grammatical, syntax o r spelling errors. Electronically signed by: Kamran Diallo M.D. 10/08/2020 7:07 PM
[2020-10-08 19:15] LABS: Basophils # (auto) 0.01 K/uL (0-0.2); Basophils % (auto) 0.2 %; Eosinophils # (auto) 0.03 K/uL (0-0.5); Eosinophils % (auto) 0.5 %; Hematocrit (blood only) 37.9 % (42-52); Hemoglobin 13.6 g/dL (14.0-18.0); Immature Granulocytes # (auto) 0.03 K/uL (0.00-0.02); Immature Granulocytes % (auto) 0.5 %; Lymphocytes # (auto) 2.06 K/uL (1.2-3.4); Mean Corpuscular Hemoglobin 33.4 pg (25-34); Mean Corpuscular Hgb Conc 35.9 g/dL (32-36); Mean Corpuscular Volume 93.1 fL (80-100); Mean Platelet Volume 9.1 fL (7.4-10.4); Monocytes # (auto) 0.49 K/uL (0.11-0.59); Monocytes % (auto) 7.9 %; Neutrophils # (auto) 3.62 K/uL (1.4-6.5); Neutrophils % (auto) 57.9 %; Platelet Count 151 K/uL (130-400); RDW Coefficient of Variation 13.1 % (11.5-14.5); RDW Standard Deviation 44.7 fL (36.4-46.3); Red Blood Count 4.07 M/uL (4.7-6.1); White Blood Count 6.24 K/uL (4.8-10.8)
--- NOTE | 2020-10-08 19:15 | XRay Report ---
XR chest 1V portable HISTORY: 85 years-old Male Stroke Like Symptoms acute strokelike symptoms COMPARISON: CTA head and neck of same day, chest radiograph 05/03/2020 TECHNIQUE: Portable AP view of the chest FINDINGS: Cardiac silhouette is enlarged. Prior median sternotomy. Calcified plaque of the thoracic aorta. Left subclavian pacer. No pneumothorax, pleural effusion or overt pulmonary edema. Pulmonary vascular con gestion. Degenerative changes of the shoulders and spine. IMPRESSION: Cardiomegaly with pulmonary vascular congestion. ACT 112: Negative or not required by law. The above report was generated using voice recognition software. It may contain grammatical, syntax o r spelling errors. Electronically signed by: Kamran Diallo M.D. 10/08/2020 7:14 PM
--- NOTE | 2020-10-08 19:29 | CT Scan Report ---
CT angio neck with con, CT angio head w con CLINICAL HISTORY: 85 years-old Male with Stroke Like Symptoms. Acute strokelike symptoms COMPARISON STUDY: head CT of same day, CTA head and neck 07/23/2020 TECHNIQUE: Following the IV administration of 119 mL of Optiray 320, CT angiogram of the head and nec k was performed from the aortic arch to the skull apex. Images are reviewed in the axial, sagittal, a nd coronal planes. 3-D MIPS images are created and assessed. IV contrast was administered without com plication. All measurements were calculated based on NASCET criteria. A dose lowering technique was utilized adhering to the principles of ALARA. CT DOSE: 1078.77 mGy.cm FINDINGS: Atheromatous plaque of the aortic arch. Patency of the innominate and imaged subclavian arteries. Com mon carotid arteries are patent. Moderate mixed plaque of the carotid bulbs results in less than 50% stenosis. Patent internal carotid arteries. Focal area of high-grade stenosis involving a branch of t he right middle cerebral artery distal to the trifurcation, image 104 series 5. The left middle and b ilateral anterior cerebral arteries are patent. Mixed plaque at the origin of the left vertebral paula ry results in at least moderate luminal narrowing. 50% luminal narrowing of the V4 segment right vert ebral artery, image 3 level is unchanged. The basilar and posterior cerebral arteries are patent. Cer ebral venous sinuses are patent. No abnormal intracranial enhancement. Prior median sternotomy. No pneumothorax. 1.5 cm left thyroid nodule. No adenopathy. Degenerative darlene nges of the spine. IMPRESSION: 1. 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 2. Unchanged 50% luminal narrowing of the V4 segment right vertebral artery. 3. No aneurysm, dissection or arterial occlusion identified. ACT 112: Negative or not required by law. The above report was generated using voice recognition software. It may contain grammatical, syntax o r spelling errors. Electronically signed by: Kamran Diallo M.D. 10/08/2020 7:28 PM
[2020-10-08 19:30] LABS: INR 1.4 (0.9-1.1); Partial Thromboplastin Time 27.3 Seconds (21.0-31.0); Prothrombin Time 13.4 Seconds (9.0-12.0)
[2020-10-08 19:31] LABS: Alanine Aminotransferase 31 U/L (12-78); Albumin Level 3.1 gm/dl (3.4-5.0); Aspartate Aminotransferase 18 U/L (15-37); BUN Creatinine Ratio 26.6 (10-20); Blood Urea Nitrogen 27 mg/dl (7-18); Carbon Dioxide 27 mmol/L (21-32); Chloride 106 mmol/L (98-107); Creatinine Clr Calc Pharmacy 54.2 ml/min; Est GFR (African American) 80.3; Est GFR (Non-African American) 69.3; Glucose 154 mg/dl (70-99); Magnesium 1.7 mg/dl (1.8-2.4); Potassium 3.8 mmol/L (3.5-5.1); Sodium 138 mmol/L (136-145)
[2020-10-08 19:36] LABS: Alkaline Phosphatase 86 U/L (45-117); Bilirubin,Total 0.4 mg/dl (0.2-1); Globulin 3.2 gm/dl (2.5-4.0); Total Protein 6.3 gm/dl (6.4-8.2); Troponin I < 0.015 ng/ml (0-0.045)
[2020-10-08 20:21] LABS: Appearance Urine Clear (Clear); Bacteria Urine Automated Negative (Negative); Bilirubin Urine Negative (Negative); Blood Urine Negative (Negative); Cast Urine Automated 0 /lpf (0-5); Color Urine Yellow; Epithelial Cell Urine Auto 0-5 /lpf (0-5); Glucose Urine UA Negative (Negative); Ketones Urine Negative (Negative); Leukocyte Esterase Urine Negative (Negative); Nitrite Urine Negative (Negative); Protein Urine Trace (Negative); RBC Urine Automated 0-4 /hpf (0-4); Specific Gravity Urine > 1.045 (1.000-1.030); Urobilinogen Urine Negative (Negative); WBC Urine Automated 0 /hpf (0-5)
[2020-10-08 20:27] LABS: Influenza A virus by PCR Negative (Neg); Influenza B virus by PCR Negative (Neg); RSV by PCR Negative (Neg); SARS CoV2 RNA(COVID-19) InHosp NEGATIVE (Negative)
--- NOTE | 2020-10-08 21:44 | History & Physical Report ---
Date of Service October 08, 2020 Assessment & Plan (1) TIA (transient ischemic attack): Patient is an 85 year old male with PMHx TIA, DM2, HTN, CKD, HLD, Gout, CAD s/p CABG x2, Aortic Valve replacement bioprosthetic, GERMAN, s/p PM placement, that presented with chief complaint of slurred speech lasting 45 minutes to 1 hour which resolved at home prior to presenting to the emergency department. 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 -Would like to order for MRI, however, patient with a pacemaker placed for hx of third degree heart block -Will order for interrogation of PM to see if it may be MRI compatible -Neurology consulted, patient follows with Dr. eVe outpatient -Continue home Plavix 75mg -Add Aspirin 81mg QD -Continue Pravastatin 40mg QD and Vascepa BID, can consider increasing to a high dose statin over Pravastatin 40mg -PT/OT ordered -Echocardiogram was recently completed 07/24/20 with EF 60-65% without documentation of a shunt Hypomagnesemia -Mag low at 1.7 -Given 1G mag IV DM2 -Hold home medications -Basal insulin and SSI -Pharmacy consult CAD S/P CABG, Aortic Valve Replacement, Pacemaker -Continue Metoprolol -Continue Pravastatin -Continue clopidogrel -Pacemaker interrogation ordered Gout -Continue home allopurinol HTN -Continue metoprolol as above -Hold Ramipril, allow for permissive HTN GERMAN -CPAP HS CKD -Creatinine 1, at baseline Dispo: Med/Surg Telemetry for stroke rule out and monitoring FEN: HH and DM2 diet, NSS +20meq KCl 80ml/hr x2L DVT: SCD Code: Full History of Present Illness Chief Complaint: Slurred Speech Primary Care Provider: Jose Betts MD Patient is an 85 year old male with PMHx TIA, DM2, HTN, CKD, HLD, Gout, CAD s/p CABG x2, Aortic Valve replacement bioprosthetic, GERMAN, s/p PM placement, that presented with chief complaint of slurred speech lasting 45 minutes to 1 hour which resolved at home prior to presenting to the emergency department. Patient notes that he was seated in the car his grandson was driving coming home from [place] today when he noticed that his speech had become slurred. He denies having any visual changes, weakness, or facial droop at that time. He and his note that upon arrival to home he was able to get out of his car, climb the stairs to their house and upon arriving to his living room his slurred speech completely resolved. Patient notes that currently he feels back to baseline. He does state that he has LUE "clumsiness" whenever he raises his arm above his head, however, this has been baseline since his last TIA/stroke in July 2020. He has been following with Dr. Vee for this issue. He otherwise denies fever, chills, SOB, chest pain, abdominal pain, nausea, vomiting, diarrhea, constipation. Med Hx: TIA, DM2, HTn, CKD, HLD, Gout, CAD s/p CABG x2, Aortic Valve replacement bioprosthetic, GERMAN, s/p pacemaker placement Surg Hx: PM placement, Bioprosthetic aortic valve replacement 2016, CABG x2 2016, Prostate seeding Soc Hx: No tobacco or illicit drug use. Drinks 1-2 alcohol beverages/month Allergies Allergy/AdvReac Type Severity Reaction Status Date / Time No Known Allergies Allergy Verified 10/08/20 19:55 Home Medications Medication Instructions Recorded Confirmed Type PreserVision AREDS 2 tab PO BID 03/31/18 10/08/20 History ascorbic acid (vitamin C) [Vitamin 500 mg PO QAM 03/31/18 10/08/20 History C] metoprolol tartrate 12.5 mg PO BID 03/31/18 10/08/20 History insulin glargine 100 unit/mL (3 0 units SQ HS box 08/14/19 10/08/20 History mL) subcutaneous pen OneTouch Verio test strips #500 ea NS 11/07/19 10/01/20 Rx allopurinol 100 mg tablet 100 mg PO BID #180 tab 11/07/19 10/08/20 Rx icosapent ethyl 1 gram capsule 2 gm PO BID #360 cap 12/14/19 10/08/20 Rx lancets 30 gauge #500 ea 01/31/20 10/01/20 Rx pen needle, diabetic 32 gauge x #450 ea 01/31/20 10/01/20 Rx 5/32" ramipril 5 mg capsule 5 mg PO BID #180 cap 06/03/20 10/08/20 Rx insulin lispro 100 unit/mL 0 unit SUBCUT DAILY ml 07/11/20 10/08/20 History subcutaneous pen calcitriol 0.25 mcg PO QAM 07/23/20 10/08/20 History metformin 425 mg PO BID 07/23/20 10/08/20 History multivitamin 1 tab PO QAM 07/23/20 10/08/20 History pravastatin 40 mg PO HS #30 tab 07/25/20 10/08/20 Rx clopidogrel 75 mg tablet 75 mg PO QAM 90 Days #90 tab 08/21/20 10/08/20 Rx Past Med/Surg History Medical History (Updated 10/08/20 @ 23:29 by Rey Ackerman DO) Actinic keratosis Chronic kidney disease, stage II (mild) Former smoker Gout, joint History of prostate cancer Hypertension Intermittent headache Leg weakness, bilateral Obesity Psoriasis Third degree AV block Unsteady gait Vitamin D deficiency Surgical History Aortic valve replaced History of cataract surgery History of hand surgery S/P coronary artery bypass graft x 2 Family History Brother Myocardial infarction Diabetes Sister Diabetes Mother Diabetes Father Stroke Other Nephrolithiasis Denies family history of Ovarian cancer Prostate cancer Breast cancer Colorectal cancer Social History Smoking Status: Former smoker Tobacco Type: Pipe and Cigars Cigarettes Per Day: 1; Hx Alcohol Use: Yes Alcohol type: beer and wine Hx Substance Use: No Preferred Language: Turkmen Communication Ability: Effective Visual Impairment: No Limitations Hearing Ability: Use of Hearing Aid Telemarketing Manager Required: No Beliefs That Will Affect Care: None marital status: Current Living Situation: Spouse current occupational status: retired Other Information That Helps Us Care for You: No Feels Safe at Home: Yes Childhood Exposure to Second-Hand Smoke: No caffeine: Yes Dental Care, Regularly: Yes Physical Activity Frequency: 5-6 Times per Week Seatbelt Use: always Sunscreen Use: Yes Assistive Devices: Denture - Upper, Denture - Lower, Glasses and Hearing Aid - Bilateral Assistive Devices Comment: TOMAS, dentures, and glasses are not here Review of Systems Review of Systems: All systems reviewed & are unremarkable except as noted in Subjective Physical Exam Constitutional: WD/WN, vitals as above Eyes: PERRL, conjunctivae normal, anicteric sclerae ENMT: external ear and nose normal, oropharynx normal Respiratory: normal respiratory effort, lungs clear to auscultation Cardiovascular: Rate/Rhythm: regular rate and regular rhythm Heart Sounds: + murmur (2/6 MAXWELL ) Gastrointestinal (Abdomen): normal bowel sounds, soft, nontender, no hepatosplenomegaly Musculoskeletal: no cyanosis or clubbing, extremities motor strength 5/5 Head/Neck/Chest: normocephalic and head atraumatic Skin: no rashes, warm and dry Neurologic: patellar DTR's 2+ bilat, sensation intact and PERRL, EOMI, accommodation nl, no face palsy, no dysarthria CN's II-XI intact bilaterally and awake Speech / Cognition: normal speech, no anomia, no expressive aphasia and no receptive aphasia Coordination: normal [id number] test Psychiatric: A+Ox3, euthymic affect Results & Data Results & Data ([facility]) Vital Signs (Past 12 Hours) Vital Signs Pulse Pulse Resp BP BP Pulse Ox 10/08/20 21:10 58 L 20 181/92 H 98 10/08/20 20:10 68 16 161/92 H 97 10/08/20 19:36 60 18 142/86 H 94 10/08/20 18:39 68 18 117/76 99 Code Status & VTE Plan VTE Prophylaxis Plan VTE Prophylaxis will be ordered: Yes Supervising Physician Co-Signing Physician Notes Patient seen and examined, chart reviewed, case discussed with DR. Robertson and I agree with his assessment and plan as documented above. Briefly, patient is an 85yo male presenting with transient episode of slurred speech, now resolved. Patient near baseline Gen - resting comfortably, nontoxic Skin - intact, no rash HEENT - NC/AT, PERRL, EOMI, neck supple Heart - +S1/S2, regular, no m/r/g Lungs - CTA Abd - +BS, soft, NT/ND Ext- No edema Neuro- nonfocal exam, no deficits Labs and images reviewed Assessment/Plan - 85yo male with transient slurred speech, suspect TIA. Stable stenosis noted on vascular imaging -Check MRI -ASA/Plavix, Statin -Neuro consultation per protocol appreciated -Remainder of plan as above Resident Activity Tracking Resident Involvement: Resident Care Provided Care Provided: Adult [facility]
[2020-10-08] MEDS ORDERED: ASPIRIN 81 MG ECTAB PO STA (23:40)
[2020-10-09] MEDS ORDERED: GLUCAGON FOR INJ 1 MG VIAL SQ PRN (00:27)
[2020-10-09] MEDS ORDERED: PHARMACIST DISCHARGE MED REC CONSULT PRN (00:27)
[2020-10-09] MEDS ORDERED: ONDANSETRON INJ 2 MG/ML 2 ML VIAL IV PRN (00:27)
[2020-10-09] MEDS ORDERED: GLUCOSE 40% GEL 15 GM TUBE PO PRN (00:27)
[2020-10-09] MEDS ORDERED: GLUCOSE 10 TABS/TUBE PO PRN (00:27)
[2020-10-09] MEDS ORDERED: DEXTROSE 50% 50 ML SYRINGE IV PRN (00:27)
[2020-10-09] MEDS ORDERED: MAGNESIUM SULFATE / D5W 1 GM/100 ML BAG IV ONE (00:27)
[2020-10-09] MEDS ORDERED: CARBOHYDRATES FOR HYPOGLYCEMIA PO PRN (00:27)
[2020-10-09] MEDS ORDERED: ACETAMINOPHEN 325 MG TAB PO PRN (00:27)
[2020-10-09] MEDS ORDERED: PHARMACY GLYCEMIC MGMT CONSULT PRN (00:43)
[2020-10-09] MEDS: METOPROLOL TARTRATE 25 MG TAB PO SCH ×2 (01:31→08:09)
[2020-10-09] MEDS: allopurinoL 100 MG TAB PO SCH ×2 (01:32→08:10)
[2020-10-09] MEDS: NSS + 20MEQ KCL 20 MEQ/1,000 ML BAG IV SCH ×2 (01:32→13:58)
[2020-10-09] MEDS: INSULIN ASPART 100 UNITS/ML 3 ML PEN SC SCH ×3 (01:35→13:55)
[2020-10-09] MEDS: VASCEPA~ORDER AWAITING ACTION SCH ×2 (03:04→08:10)
--- NOTE | 2020-10-09 05:52 | Billing Data ---
Date of Service October 08, 2020 Coding Level of Care Code 07566 OBS Care - Level 3
[2020-10-09 06:49] LABS: Basophils # (auto) 0.01 K/uL (0-0.2); Basophils % (auto) 0.2 %; Eosinophils # (auto) 0.06 K/uL (0-0.5); Hematocrit (blood only) 41.1 % (42-52); Hemoglobin 13.8 g/dL (14.0-18.0); Immature Granulocytes # (auto) 0.02 K/uL (0.00-0.02); Immature Granulocytes % (auto) 0.3 %; Lymphocytes # (auto) 1.84 K/uL (1.2-3.4); Lymphocytes % (auto) 31.9 %; Mean Corpuscular Hemoglobin 31.4 pg (25-34); Mean Corpuscular Hgb Conc 33.6 g/dL (32-36); Mean Corpuscular Volume 93.6 fL (80-100); Mean Platelet Volume 9.2 fL (7.4-10.4); Monocytes # (auto) 0.55 K/uL (0.11-0.59); Monocytes % (auto) 9.5 %; Neutrophils # (auto) 3.28 K/uL (1.4-6.5); Neutrophils % (auto) 57.1 %; Platelet Count 147 K/uL (130-400); RDW Coefficient of Variation 13.2 % (11.5-14.5); RDW Standard Deviation 45.4 fL (36.4-46.3); Red Blood Count 4.39 M/uL (4.7-6.1); White Blood Count 5.76 K/uL (4.8-10.8)
[2020-10-09 07:18] LABS: BUN Creatinine Ratio 22.5 (10-20); Calcium 8.4 mg/dl (8.5-10.1); Creatinine Clr Calc Pharmacy 58.9 ml/min; Est GFR (African American) 88.8; Est GFR (Non-African American) 76.6
--- NOTE | 2020-10-09 08:15 | Hospitalist Progress Note ---
Date of Service October 09, 2020 Assessment & Plan (1) TIA (transient ischemic attack): Patient is an 85 year old male with PMHx TIA, DM2, HTN, CKD, HLD, Gout, CAD s/p CABG x2, Aortic Valve replacement bioprosthetic, GERMAN, s/p PM placement, that presented with chief complaint of slurred speech lasting 45 minutes to 1 hour which resolved at home prior to presenting to the emergency department. 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 -Would like to order for MRI, however, patient with a pacemaker placed for hx of third degree heart block -Will order for interrogation of PM to see if it may be MRI compatible -Neurology consulted, patient follows with Dr. Vee outpatient -Continue home Plavix 75mg -Add Aspirin 81mg QD -Continue Pravastatin 40mg QD and Vascepa BID, can consider increasing to a high dose statin over Pravastatin 40mg -PT/OT ordered -Echocardiogram was recently completed 07/24/20 with EF 60-65% without documentation of a shunt Hypomagnesemia -Mag low at 1.7 -Given 1G mag IV DM2 -Hold home medications -Basal insulin and SSI -Pharmacy consult CAD S/P CABG, Aortic Valve Replacement, Pacemaker -Continue Metoprolol -Continue Pravastatin -Continue clopidogrel -Pacemaker interrogation ordered Gout -Continue home allopurinol HTN -Continue metoprolol as above -Hold Ramipril, allow for permissive HTN GERMAN -CPAP HS CKD -Creatinine 1, at baseline Dispo: Med/Surg Telemetry for stroke rule out and monitoring FEN: HH and DM2 diet, NSS +20meq KCl 80ml/hr x2L DVT: SCD Code: Full Admission and Anticipated Discharge Date Admission Date: October 08, 2020 Results & Data Results & Data ([facility]) Vital Signs (Past 12 Hours) Vital Signs Temp Pulse Pulse Pulse Resp BP Pulse Ox 10/09/20 07:52 98.1 F 54 L 18 131/78 97 10/09/20 07:10 59 L 10/09/20 04:17 96.6 F L 55 L 20 160/83 H 97 10/09/20 02:21 71 16 96 10/09/20 00:32 98.1 F 64 18 175/85 H 93 10/09/20 00:31 98.1 F 64 18 175/85 H 93 10/08/20 23:24 65 18 145/70 H 95 10/08/20 22:32 63 20 131/67 95 10/08/20 21:10 58 L 20 181/92 H 98 PG Care Time/CCT Total # of Minutes Spent Total Time Spent with Patient: Total time spent is greater than 50% in coordination of care (as documented) at patient's floor/unit and/or counseling patient: Coding Diagnoses TIA (transient ischemic attack) G45.9
[2020-10-09 08:46] LABS: Estimated Average Glucose 151 mg/dl; Hemoglobin A1C 6.9 % (4.5-5.6)
[2020-10-09] MEDS ORDERED: ASPIRIN 81 MG ECTAB PO SCH (09:00)
[2020-10-09] MEDS ORDERED: CLOPIDOGREL BISULFATE 75 MG TAB PO SCH (09:00)
[2020-10-09] MEDS ORDERED: INSULIN GLARGINE SOLOSTAR 100 UNITS/ML 3 ML PEN SC SCH ×2 (09:00→21:00)
--- NOTE | 2020-10-09 09:47 | Neurology Consultation ---
Date of Consultation October 09, 2020 Assessment & Plan (1) TIA (transient ischemic attack): (2) Cerebrovascular accident (CVA): (3) Diabetic peripheral neuropathy associated with type 2 diabetes mellitus: This patient had an episode of dysarthria October 08 lasting about 30-45 minutes. It resolved and has not returned. He had a probable small lacunar stroke in July of 2020 (could not confirm with an MRI because of his pacemaker) leaving him with some residual left upper extremity weakness of a mild nature. Otherwise, his neurologic examination is unremarkable for focal findings, meningeal signs, or encephalopathy. He has some mild changes consistent with a peripheral neuropathy. He has known diabetic polyneuropathy He has some vertebral artery stenosis on the right and right middle cerebral artery high-grade stenosis. These are unchanged compared to CT angiography in July. Recommendations: 1. I would recommend adding 81 mg aspirin to the 75 mg clopidogrel and, once again, do these together for 3 weeks, then discontinue the aspirin and remain on clopidogrel alone. There is no indication for anticoagulation in stroke prevention in this patient. 2. keep pravastatin 40 mg. He is not a higher dose statin candidate at this time. 3. Control glucose trying to get the hemoglobin A1c closer to 6.5 if able. 4. his blood pressure has been controlled. 5. his vascular lesions are not amenable to surgery as far as I am aware. 6. The patient will be followed by Dr. Vee as an outpatient Overall, I spent a total of 45 minutes with this case including review of records, direct evaluation the patient bedside, and discussion of the case with the patient at bedside, and Dr. Barcenas including differential diagnosis and treatment options. History of Present Illness Reason for Consultation: Patient is an 85-year-old, who I was asked to see at the request of Dr. Vizcaino, for neurologic consultation regarding TIA. Requesting Physician: Dr. Vizcaino Attending Physician: Marco Barcenas MD History of Present Illness This patient has a history of strokes and TIAs in the past, aortic valve replacement and a permanent pacemaker. He has post coronary about past graft has a history of diabetes, hypertension and chronic kidney disease. He also has a history of polyneuropathy secondary to diabetes. In July of this year he had the onset of left upper extremity weakness. He saw Dr. Vee who felt that he had a small right hemispheric lacune. It was not shown on CT scan of the head. MRI was not obtainable due to his pacemaker. Over time with therapy he feels his left arm is 50% better but he still has some residual weakness. He has no other issues with pain, headache, vision issues, weakness, or numbness. Dr. Vee also felt that he had some mild memory issues. CT angiography showed high-grade stenosis in the right middle cerebral artery M2 / M3 area. There was 50% stenosis in the right V4 area also. He was put on Plavix added to his aspirin, did that for 1 month, then dropped the aspirin and remain on Plavix alone. He last saw Dr. Vee September 30 and he was stable. Patient was driving back [facility] in the afternoon of October 08. after stopping to use the restroom around 1500, while back in the car he noted that his speech was slurred. His grandson was driving noticed it as well but they continued to drive home. When he got home his noticed linda t his speech was slurred. The entire event lasted anywhere from 30-45 minutes then resolved and never returned. his daughter, who was an RN, convinced him to come to the emergency room. On October 08 he arrived to the emergency room at 1839, with a pressure pulse is 68, respiratory 18, blood pressure 131/78 and O2 saturation 99%. He was afebrile. In the emergency room his neurologic examination was unremarkable except for some residual left upper extremity weakness. CT angiography of the head and neck were unchanged from the previous studies of July. A CT scan of the head showed no acute changes. CBC showed mild anemia. He had elevated BUN and creatinine and glucose of 129. Hemoglobin A1c was 6.9 and liver profile was unremarkable. Triglycerides 173 and total cholesterol 121. PT was mildly elevated. Patient has been doing well and has had no further issues or problems since admission. Denies pain, headache, blurry vision or loss of vision, speech issues, weakness of a new nature, or numbness. His balance is stable. Allergies Allergy/AdvReac Type Severity Reaction Status Date / Time No Known Allergies Allergy Verified 10/08/20 19:55 Home Medications Medication Instructions Recorded Confirmed Type PreserVision AREDS 2 tab PO BID 03/31/18 10/08/20 History ascorbic acid (vitamin C) [Vitamin 500 mg PO QAM 03/31/18 10/08/20 History C] metoprolol tartrate 12.5 mg PO BID 03/31/18 10/08/20 History insulin glargine 100 unit/mL (3 0 units SQ HS box 08/14/19 10/08/20 History mL) subcutaneous pen OneTouch Verio test strips #500 ea NS 11/07/19 10/01/20 Rx allopurinol 100 mg tablet 100 mg PO BID #180 tab 11/07/19 10/08/20 Rx icosapent ethyl 1 gram capsule 2 gm PO BID #360 cap 12/14/19 10/08/20 Rx lancets 30 gauge #500 ea 01/31/20 10/01/20 Rx pen needle, diabetic 32 gauge x #450 ea 01/31/20 10/01/20 Rx 5/32" ramipril 5 mg capsule 5 mg PO BID #180 cap 06/03/20 10/08/20 Rx insulin lispro 100 unit/mL 0 unit SUBCUT DAILY ml 07/11/20 10/08/20 History subcutaneous pen calcitriol 0.25 mcg PO QAM 07/23/20 10/08/20 History metformin 425 mg PO BID 07/23/20 10/08/20 History multivitamin 1 tab PO QAM 07/23/20 10/08/20 History pravastatin 40 mg PO HS #30 tab 07/25/20 10/08/20 Rx clopidogrel 75 mg tablet 75 mg PO QAM 90 Days #90 tab 08/21/20 10/08/20 Rx Patient History Medical History Actinic keratosis Chronic kidney disease, stage II (mild) Former smoker Gout, joint History of prostate cancer Hypertension Intermittent headache Leg weakness, bilateral Obesity Psoriasis Third degree AV block Unsteady gait Vitamin D deficiency Surgical History Aortic valve replaced History of cataract surgery History of hand surgery S/P coronary artery bypass graft x 2 Family History Brother Myocardial infarction Diabetes Sister Diabetes Mother Diabetes Father Stroke Other Nephrolithiasis Denies family history of Ovarian cancer Prostate cancer Breast cancer Colorectal cancer Social History Smoking Status: Former smoker Tobacco Type: Pipe and Cigars Cigarettes Per Day: 1; Hx Alcohol Use: Yes Alcohol type: beer and wine Hx Substance Use: No Preferred Language: Gibraltarian Communication Ability: Effective Visual Impairment: No Limitations Hearing Ability: Use of Hearing Aid Non Destructive Testing Scientist Required: No Beliefs That Will Affect Care: None marital status: Current Living Situation: Spouse current occupational status: retired Feels Safe at Home: Yes Childhood Exposure to Second-Hand Smoke: No caffeine: Yes Dental Care, Regularly: Yes Physical Activity Frequency: 5-6 Times per Week Seatbelt Use: always Sunscreen Use: Yes Assistive Devices: Denture - Upper, Denture - Lower, Glasses and Hearing Aid - Bilateral Review of Systems Constitutional: no fever, no fatigue and no weakness Eyes: no diplopia, no eye pain and no worsening vision Ear, Nose, Mouth, Throat: no ear pain, no tinnitus, no hearing loss, no dizziness, no hoarseness and no dysphagia Respiratory: no cough and no dyspnea Cardiovascular: no chest pain, no palpitations and no lightheadedness Gastrointestinal: no abdominal pain, no nausea and no vomiting Genitourinary: no dysuria and no urinary incontinence Musculoskeletal: no back pain, no neck pain, no radicular pain, no joint pain and no myalgia Integumentary: no rash and no lesions Neurologic: + localized weakness; no gait abnormality, no generalized weakness, no tingling, no numbness, no tremor(s), no abnormal movements, no headache(s), no abnormal speech, no confusion and no memory loss Psychiatric: no depression, no irritability, no anxiety, no difficulty concentrating, no confusion and no hallucinations Endocrine: no fatigue and no flushing Hematologic / Lymphatic: no easy bleeding and no easy bruising Allergy / Immunological: no urticaria and no problem reported Exam (Neuro) Physical Exam: The patient is right-handed. The patient is awake, alert, and attentive. Speech is normal without any aphasia or dysarthria. he can name objects, repeat phrases, and has normal spontaneous speech. Mentation and thought processes are intact, with orientation to person, place and time, and normal fund of knowledge. Attention and concentration are normal. Mood and affect are normal and appropriate. General appearance and grooming are normal. Short and long-term memory are intact. Extraocular eye muscles are intact without nystagmus. Visual acuity and visual cyr seem normal grossly to confrontation. There are no deficits to sensation in the face in all 3 distributions of the fifth cranial nerve bilaterally. Corneal reflexes are positive bilaterally. Facial strength and symmetry was normal bilaterally. Hearing seems normal to whisper and finger rub bilaterally. Palate moves well without asymmetry. There is normal sternocleidomastoid and trapezius (shoulder shrug) strength bilaterally. Tongue is midline with good strength bilaterally. Neck has a full range of motion without discomfort. There are no cervical bruits bilaterally. There are no cranial or ocular bruits. Heart is without murmur. There is a regular rhythm and rate. Cervical, thoracic, and lumbar spine are nontender to palpation. Gait Was not tested but stance sitting up in bed was reasonable. With outstretched arms there is no drift. There are no resting, postural, or action tremors. There is no ataxia with finger to nose testing. There is good f acility in the right hand and decreased facility in the left hand.. No other abnormal involuntary movements are noted. Motor strength is 5/5 diffusely in the Right upper extremity, including deltoid s, biceps, triceps, brachioradialis, wrist flexors and extensors, provider relations specialist, and intrinsic hand muscles. motor strength in the left upper extremity was 4/5 diffusely. Motor strength is 5/5 diffusely in the legs bilaterally including hip flexors, quadriceps, hamstrings, gastrocnemius, tibialis anterior, tibialis posterior, and Peroneii muscles. Toe extensors are normal and there is good bulk in the extensor digitorum brevis muscles bilaterally. The limbs have good tone without rigidity or spasticity. There is no atrophy noted in the muscles. Muscle bulk is normal, there is no tenderness to palpat ion, no myotonia to percussion, and no fasciculations seen. Sensory examination is intact to touch and pin throughout all 4 limbs diffusely. Reflexes are 1/4 in the biceps, triceps, brachioradialis, and quadriceps tendons bilaterally. Achilles tendon reflexes were absent. There is no clonus bilaterally. Toes are downgoing with plantar stimulation bilaterally. Peripheral pulses are present and of normal quality distally in all 4 limbs. There is no peripheral edema noted in the limbs. Results & Data ([facility]) Vital Signs (Past 12 Hours) Vital Signs Temp Pulse Pulse Pulse Resp BP Pulse Ox 10/09/20 07:52 36.7 C 54 L 18 131/78 97 10/09/20 07:10 59 L 10/09/20 04:17 35.9 C L 55 L 20 160/83 H 97 10/09/20 02:21 71 16 96 10/09/20 00:32 36.7 C 64 18 175/85 H 93 10/09/20 00:31 36.7 C 64 18 175/85 H 93 10/08/20 23:24 65 18 145/70 H 95 10/08/20 22:32 63 20 131/67 95 PG Care Time/CCT Total # of Minutes Spent Total Time Spent with Patient: Total time spent is greater than 50% in coordination of care (as documented) at patient's floor/unit and/or counseling patient: Coding Level of Care Code 35128 OBS Care - Level 2 Diagnoses TIA (transient ischemic attack) G45.9 Cerebrovascular accident (CVA) I63.511 CVA mechanism: stenosis Laterality of affected vessel: right Precerebral and cerebral artery: middle cerebral artery Diabetic peripheral neuropathy associated with type 2 diabetes mellitus E11.42 (1) Cerebrovascular accident (CVA) CVA mechanism: stenosis Laterality of affected vessel: right Precerebral and cerebral artery: middle cerebral artery Qualified Code(s): I63.511 - Cerebral infarction due to unspecified occlusion or stenosis of right middle cerebral artery
--- NOTE | 2020-10-09 12:50 | Electrocardiogram Report ---
Test Reason : Blood Pressure : / mmHG Vent. Rate : 061 BPM Atrial Rate : 061 BPM P-R Int : 224 ms QRS Dur : 180 ms QT Int : 474 ms P-R-T Axes : 008 -52 116 degrees QTc Int : 477 ms Atrial-sensed ventricular-paced rhythm with prolonged AV conduction Abnormal ECG When compared with ECG of 23-JUL-2020 11:24, Vent. rate has decreased BY 9 BPM Confirmed by Dashawn Mahajan ([id number]) on 10/09/2020 12:50:30 PM Referred By: REFERRED SELF Confirmed By:Dashawn Mahajan
[2020-10-09] MEDS ORDERED: STROKE PATIENT DISCHARGE STA (13:51)
--- NOTE | 2020-10-09 14:26 | Pharmacy Report ---
Pharmacist Stroke Counseling - Date of Service October 09, 2020 - Scope: Pharmacy has been consulted to provide medication discharge counseling for this patient admitted with transient ischemic attack as per the Pharmacist Discharge Counseling for Stroke Patients Protocol. - Medications on Discharge: Home Medications Medication Instructions Recorded Confirmed PreserVision AREDS 2 tab PO BID 03/31/18 10/08/20 ascorbic acid (vitamin C) [Vitamin 500 mg PO QAM 03/31/18 10/08/20 C] metoprolol tartrate 12.5 mg PO BID 03/31/18 10/08/20 insulin glargine 100 unit/mL (3 0 units SQ HS box 08/14/19 10/08/20 mL) subcutaneous pen insulin lispro 100 unit/mL 0 unit SUBCUT DAILY ml 07/11/20 10/08/20 subcutaneous pen calcitriol 0.25 mcg PO QAM 07/23/20 10/08/20 metformin 425 mg PO BID 07/23/20 10/08/20 multivitamin 1 tab PO QAM 07/23/20 10/08/20 New Rx's Medication Instructions Recorded OneTouch Verio test strips #500 ea NS 11/07/19 allopurinol 100 mg tablet 100 mg PO BID #180 tab 11/07/19 icosapent ethyl 1 gram capsule 2 gm PO BID #360 cap 12/14/19 lancets 30 gauge #500 ea 01/31/20 pen needle, diabetic 32 gauge x #450 ea 01/31/20" ramipril 5 mg capsule 5 mg PO BID #180 cap 06/03/20 pravastatin 40 mg PO HS #30 tab 07/25/20 clopidogrel 75 mg tablet 75 mg PO QAM 90 Days #90 tab 08/21/20 - Action: The above medications, specifically ones for stroke treatment/prophylaxis, have been reviewed in detail with the patient and/or patient truck sales representative(s) prior to discharge. This includes indication, common adverse reactions, drug inte ractions, and medication administration. Medication counseling has been employed using the teach-back method to ensure understanding. - Outcome: The patient and/or patient truck sales representative(s) have demonstrated understanding of the medications. Additional comments: - Patient has previously been on aspirin. Aware that he will be taking aspirin and Plavix together for at least the next 3 weeks until evaluated again by neurology. - No obvious barriers to medication compliance identified - Pillbox provided Thank you for allowing pharmacy to be involved in the care of this patient. Please call [phone] with any additional questions
--- NOTE | 2020-10-09 18:07 | Discharge Summary ---
Date of Service October 09, 2020 Admission HPI Per Admitting Provider Patient is an 85 year old male with PMHx TIA, DM2, HTN, CKD, HLD, Gout, CAD s/p CABG x2, Aortic Valve replacement bioprosthetic, GERMAN, s/p PM placement, that presented with chief complaint of slurred speech lasting 45 minutes to 1 hour which resolved at home prior to presenting to the emergency department. Patient notes that he was seated in the car his grandson was driving coming home from [place] today when he noticed that his speech had become slurred. He denies having any visual changes, weakness, or facial droop at that time. He and his note that upon arrival to home he was able to get out of his car, climb the stairs to their house and upon arriving to his living room his slurred speech completely resolved. Patient notes that currently he feels back to baseline. He does state that he has LUE "clumsiness" whenever he raises his arm above his head, however, this has been baseline since his last TIA/stroke in July 2020. He has been following with Dr. Vee for this issue. He otherwise denies fever, chills, SOB, chest pain, abdominal pain, nausea, vomiting, diarrhea, constipation. Med Hx: TIA, DM2, HTn, CKD, HLD, Gout, CAD s/p CABG x2, Aortic Valve replacement bioprosthetic, GERMAN, s/p pacemaker placement Surg Hx: PM placement, Bioprosthetic aortic valve replacement 2016, CABG x2 2017, Prostate seeding Soc Hx: No tobacco or illicit drug use. Drinks 1-2 alcohol beverages/month Principal Diagnosis TIA chronic cerebrovascular disease Discharge Exam The patient appeared well Vital signs as documented. Lungs are clear to auscultation and appear unlabored Cardiac exam, Rhythm is regular.. No murmurs, rubs or gallops. Abdominal exam reveals normal bowel sounds, soft non tender, no masses Extremities are nonedematous and both pedal pulses are normal. Neurologic exam is alert and oriented, no focal loss of strength or sensation Skin is without bruises or rashes Psychologically is without concerns for anxiety or depression. Discharge Data Allergies Allergy/AdvReac Type Severity Reaction Status Date / Time No Known Allergies Allergy Verified 10/08/20 19:55 Consultations 10/08/20 20:30 ED Decision to Admit Stat 10/09/20 00:27 Consult Neurology Routine Ordered Studies 10/08/20 18:49 CT angio head w con Stat CT angio neck with con Stat CT head/brain wo con Stat Hospital Course (1) TIA (transient ischemic attack): Patient is an 85 year old male with PMHx TIA, DM2, HTN, CKD, HLD, Gout, CAD s/p CABG x2, Aortic Valve replacement bioprosthetic, GERMAN, s/p PM placement, that presented with chief complaint of slurred speech lasting 45 minutes to 1 hour which resolved at home prior to presenting to the emergency department. 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 -Would like to order for MRI, however, patient with a pacemaker placed for hx of third degree heart block that is not MRI comparable, Loco2 confirmed this -Will order for interrogation of PM to see if it may be MRI compatible -Neurology consulted, patient follows with Dr. Vee outpatient -Continue home Plavix 75mg -Add Aspirin 81mg QD for at least one month but maybe indefinite -Continue Pravastatin 40mg QD and Vascepa BID, can consider increasing to a high dose statin over Pravastatin 40mg pt did well with PT/OT -Echocardiogram was recently completed 07/24/20 with EF 60-65% without documentation of a shunt Hypomagnesemia -replete DM2 resume home medicines glargine plus lispro CAD S/P CABG, Aortic Valve Replacement, Pacemaker -Continue Metoprolol -Continue Pravastatin -Continue clopidogrel -Pacemaker interrogation ordered ,pts pacemaker is not compatible wtih MRI Gout -Continue home allopurinol HTN -Continue metoprolol as above - Ramipril GERMAN -CPAP HS CKD -Creatinine 1, at baseline Code: Full Total Time Total Time Spent Total Time Spent (In Minutes): It required greater than 30 minutes to prepare this patient for discharge Discharge Plan Discharge Items Patient Disposition: Home - Self-Care Reason For Visit: SLURRED SPEECH Discharge Diagnosis: transient ischemic attack Activity: Resume your previous activity Non-emergency contact: Primary Care Provider and Neurologist Call non-emergency contact if: you have any medication questions Follow-up/Referrals: Jose Betts MD [Primary Care Provider] - 10/16/20 3:30 pm Zhanna Vee MD [Family Provider] - 10/23/20 9:00 am Diet: Heart Healthy Addtl Attending Provider Instructions: A transient ischemic attack (TIA) is a temporary period of symptoms similar to those of a stroke. A TIAusually lasts only a few minutes and doesn't cause permanent damage. Often called a ministroke, a transient ischemic attack may be a warning. Neurology recommends taking both aspirin and plavix for at least 3-4 weeks and then have repeat evaluation with Dr Vee Pending Studies at Discharge: No Stand-Alone Forms: Medications to Prevent Stroke, [facility] Gucash, Smoking Cessation Medications and DC Order Prescriptions: New aspirin 81 mg Tablet,Delayed Release (Dr/Ec) 81 mg PO DAILY Qty: 30 RF: 0 Continued allopurinol 100 mg tablet 100 mg PO BID Qty: 180 RF: 3 (DME) blood sugar diagnostic [ArchyTouch Verio test strips] Strip See Rx Instructions .ROUTE .MEDSUPPLY Qty: 500 RF: 1 Vascepa 1 gram capsule 2 gm PO BID Qty: 360 RF: 3 (DME) pen needle, diabetic [BD Ultra-Fine Silva Pen Needle] 32 gauge x 5/32" needle See Dose Instructions .ROUTE .MEDSUPPLY Qty: 450 RF: 3 (DME) lancets [ArchyTouch Delica Plus Lancet] 30 gauge misc See Rx Instructions .ROUTE .MEDSUPPLY Qty: 500 RF: 3 clopidogrel 75 mg tablet 75 mg PO QAM 90 Days Qty: 90 RF: 2 ramipril [Altace] 5 mg capsule 5 mg PO BID Qty: 180 RF: 3 Lantus Solostar U-100 Insulin 100 unit/mL (3 mL) insulin pen 0 units SQ HS RF: 0 ascorbic acid (vitamin C) [Vitamin C] 500 mg Tablet 500 mg PO QAM RF: 0 metoprolol tartrate 25 mg Tablet 12.5 mg PO BID RF: 0 PreserVision AREDS [id number] [id number] Tablet 2 tab PO BID RF: 0 insulin lispro [Humalog KwikPen Insulin] 100 unit/mL insulin pen 0 unit SUBCUT DAILY RF: 0 multivitamin Tablet 1 tab PO QAM RF: 0 metformin 850 mg tablet 425 mg PO BID RF: 0 calcitriol 0.25 mcg capsule 0.25 mcg PO QAM RF: 0 pravastatin 40 mg Tablet 40 mg PO HS Qty: 30 RF: 1 Discharge Orders: Discharge Order (Routine); Ordered 10/09/20 Ordered By: Marco García/Other Patient Handouts: High Blood Sugar (Hyperglycemia), Hypoglycemia (Low Blood Sugar), Managing Type 2 Diabetes, Managing Diabetes: The A1C Test Admission Data Admit Date/Time: 10/08/20 21:29 Attending Provider: Marco Barcenas Admit Provider: Marco Robertson Primary Care Provider: Jose Betts Other Providers: Desiree Vizcaino Emile Other Interventions: Discharge Summary Assessment (RN) Last Done: 10/09/20 14:38 Coding Level of Care Code D/C Day Management >30 mins Diagnoses TIA (transient ischemic attack) G45.9
[2020-10-09] MEDS ORDERED: PRAVASTATIN SOD 40 MG TAB PO SCH (21:00)
== END 2020-10-09 15:32 | disposition home or self-care (01) ==
LOC: 2N 18:33 → ED 18:33 → SUATTDRO 21:29 → 2N 23:40